=== PATIENT | female | born 1950 | race Caucasian/White ===

== ENCOUNTER 2016-10-16 09:02 | Emergency (ER) | payer MEDICARE ==
[2016-10-16] MEDS ORDERED: NS 0.9% 1000 ML* 1,000 ML IV ONE (09:19)
[2016-10-16] MEDS ORDERED: Aspirin Low Dose CHEW TAB* 81 MG PO ONE (09:19)
[2016-10-16 09:59] LABS: Albumin 3.7 g/dL (3.2-5.2); BUN/Creatinine Ratio 19.8 (8-20); Calcium 9.3 mg/dL (8.6-10.3); EGFR African American 74.8 (>60); EGFR Non-African American 58.1 (>60); Globulin 3.6 g/dL (2-4); Magnesium 2.1 mg/dL (1.9-2.7); Potassium 2.9 mmol/L (3.5-5.0); Total Bilirubin 0.4 mg/dL (0.2-1.0); Total Protein 7.3 g/dL (6.4-8.9)
[2016-10-16 10:00] LABS: Hematocrit 45 % (35-47); Hemoglobin 14.4 g/dl (12.0-16.0); Mean Corpuscular HGB Conc 32 g/dl (31-36); Mean Corpuscular Hemoglobin 29 pg (27-31); Mean Corpuscular Volume 91 fL (80-97); Mean Platelet Volume 9 um3 (7.4-10.4); Red Cell Distribution Width 15 % (10.5-15); Troponin I 0.02 ng/mL (<0.04); White Blood Count 15.1 10^3/ul (3.5-10.8)
[2016-10-16 10:20] LABS: T4 6.11 mcg/mL (6.09-12.23)
[2016-10-16 10:21] LABS: TSH (Thyroid Stimulating Horm) 1.99 mcIU/mL (0.34-5.60)
--- NOTE | 2016-10-16 10:29 | RAD ---
INDICATION: Chest pain COMPARISON: September 18, 2007 TECHNIQUE: An AP portable view obtained at 0945 hours is submitted. FINDINGS: Bones/Soft Tissues: There are no acute bony findings. Cardiomediastinal: The cardiomediastinal silhouette is normal. Lungs: There are no infiltrates. Pleura: There are no pleural effusions. Other: None IMPRESSION: NO ACTIVE DISEASE.
[2016-10-16] MEDS ORDERED: Iodixanol* (CONTRAST) 320 MG/ML 100 ML SDV IV ONE (14:33)
[2016-10-16] MEDS ORDERED: Potassium Chlor TAB* 20 MEQ TAB.ER PO ONE (14:34)
[2016-10-16] MEDS ORDERED: KCL 10 MEQ/50 ML IVPREMIX* 10 MEQ/50 ML BAG IV ONE (14:34)
--- NOTE | 2016-10-16 15:48 | RAD ---
INDICATION: Chest pain and elevated d-dimer COMPARISON: None TECHNIQUE: Axial source images were acquired following the administration of 58 mL Visipaque [address] angiographic technique. Coronal and sagittal reconstructed images were constructed and reviewed. FINDINGS: There there are no filling defects in the pulmonary arteries to indicate acute pulmonary embolic disease. In the lateral aspect of the left lower lobe (image 32 of 64) there is a faintly defined 4 mm pulmonary nodule that appears to correspond to a similar nodule seen on the September 17, 2007 CT examination. At the medial aspect of the right lower lobe (image 134 of 254) there is a 1.3 x 1.4 cm soft tissue nodule that may correspond to a focus of pleural-based density on the 2008 CT examination. The heart is normal in size. There is no evidence of pericardial effusion. There is no evidence of aortic aneurysm or dissection. There is no upper mediastinal or axillary lymphadenopathy. At the lower mediastinum (image 149) there is a top normal periaortic right of midline lymph node measuring 8 mm in short access, increased slightly from 6 mm on the previous CT examination. The bilateral breast prostheses are unchanged from the 2008 CT examination. The visualized osseous structures appear normal. Limited views of the upper abdomen show no abnormalities. IMPRESSION: 1. No CT of evidence of pulmonary embolism. 2. At the medial aspect of the right lower lobe there is a pulmonary nodule adjacent to the pleura with a maximum axial dimension of 1.4 cm. This may or may not correspond to a pleural-based density seen on the 2008 CT examination and therefore potentially could represent chronic granulomatous formation. Alternatively, infectious, inflammatory or neoplastic etiologies are considered. 3. At the lower mediastinum just above the diaphragmatic hiral there are top normal periaortic lymph nodes measuring up to 8 mm in short axis diameter, slightly larger when compared to the 2008 CT examination of indeterminate clinical relevance.
[2016-10-16 17:50] VITALS: BP 120/80
--- NOTE | 2016-10-16 22:36 | ED ---
Jason Solis Alfonso, scribed for Hilary Vallecillo MD on 10/16/16 at 0958 . HPI Chest Pain - HPI Summary HPI Summary: This patient is a 66 year old F presenting to [facility] accompanied by son with a chief complaint of diffuse chest pressure since 0800 this morning. The chest pressure radiates to her neck. The CC is described as burning. Pt rates the pain 4/10 in severity currently and 7/10 in severity SITE LEAD. Symptoms aggravated and alleviated by nothing. Pt reports SOB and lightheadedness. Pt denies nausea. Pt took ASA 81 mg and Xanax 0.25 mg SITE LEAD because she thought her sx were related to anxiety. FHx of blood clotting in mother. PMHx of HTN and HLD. - History of Current Complaint Chief Complaint: EDChestPainROMI Time Seen by Provider: 10/16/16 09:19 Hx Obtained From: Patient Onset/Duration: Started Minutes Ago - 0800 this morning, Still Present Timing: Constant Initial Severity: Severe Current Severity: Moderate Pain Intensity: 4 - Was 7/10 SITE LEAD Pain Scale Used: 0-10 Numeric Chest Pain Location: Diffuse Chest Pain Radiates: Yes Chest Pain Radiates To:: Neck Character: Burning Aggravating Factor(s): Nothing Alleviating Factor(s): Nothing Associated Signs and Symptoms: Positive: Chest Pain, Shortness of Breath, Lightheadedness. Negative: Nausea - Allergy/Home Medications Allergies/Adverse Reactions: Allergies Allergy/AdvReac Type Severity Reaction Status Date / Time Ibuprofen Allergy Unknown Verified 08/08/16 12:20 Reaction Details narcotics Allergy Unknown Uncoded 08/08/16 12:20 Reaction Details PMH/Surg Hx/FS Hx/Imm Hx Previously Healthy: Yes Opthamlomology History: Denies: Hx Legally Blind EENT History: Denies: Hx Deafness - Cancer History Hx Chemotherapy: No Hx Radiation Therapy: No Infectious Disease History: Yes Infectious Disease History: Denies: Traveled Outside the [place] in Last 30 Days - Family History Known Family History: Positive: Blood Disorder - Blood clotting in mother, Other - Cancer - Social History Alcohol Use: None Substance Use Type: Reports: None Smoking Status (MU): Former Smoker Review of Systems Constitutional: Negative Positive: Chest Pain - Burning diffuse and radiates to neck Positive: Shortness Of Breath Negative: Abdominal Pain, Nausea Musculoskeletal: Negative Skin: Negative Neurological: Other - Positive lightheadedness Psychological: Normal All Other Systems Reviewed And Are Negative: Yes Physical Exam Triage Information Reviewed: Yes Vital Signs On Initial Exam: Initial Vitals Temp Pulse Resp BP Pulse Ox 97.6 F 154 20 128/101 100 10/16/16 09:03 10/16/16 09:03 10/16/16 09:03 10/16/16 09:03 10/16/16 09:03 Vital Signs Reviewed: Yes Appearance: Positive: No Pain Distress, Well-Nourished, Ill-Appearing Skin: Positive: Warm, Skin Color Reflects Adequate Perfusion Head/Face: Positive: Normal Head/Face Inspection Eyes: Positive: Conjunctiva Clear ENT: Positive: Normal ENT inspection. Negative: Nasal congestion, Muffled/ hoarse voice Neck: Positive: Supple, Nontender, No Lymphadenopathy Respiratory/Lung Sounds: Positive: Clear to Auscultation, Breath Sounds Present Cardiovascular: Positive: Pulses are Symmetrical in both Upper and Lower Extremities, Tachycardia. Negative: Murmur, Leg Edema Left, Leg Edema Right Abdomen Description: Positive: Nontender, No Organomegaly, Soft. Negative: Distended, Guarding, Hepatomegaly, McBurney's Point Tenderness, Peritoneal Signs , Pulsatile Mass, Splenomegaly Bowel Sounds: Positive: Present Musculoskeletal: Positive: Strength/ROM Intact. Negative: Devon Sign Left, Devon Sign Right, Edema Left, Edema Right Neurological: Positive: Sensory/Motor Intact, Alert, Oriented to Person Place, Time, CN Intact II-III, Speech Normal. Negative: Facial Droop, Focal Deficit @ , Slurred Speech Psychiatric: Positive: Normal - Maurice Coma Scale Coma Scale Total: 15 Diagnostics - Vital Signs Vital Signs Temp Pulse Resp BP Pulse Ox 10/16/16 09:11 96.0 F 154 25 132/101 97 10/16/16 09:03 97.6 F 154 20 128/101 100 - Laboratory Lab Results: Lab Results 10/16/16 Range/Units 09:33 Lactic Acid 1.1 (0.5-2.0) mmol/L Result Diagrams: 10/16/16 09:33 10/16/16 09:33 Lab Statement: Any lab studies that have been ordered have been reviewed, and results considered in the medical decision making process. - Radiology CXR Radiology Interpretation Completed By: Radiologist - No active disease. - CT CTA Chest CT Interpretation Completed By: Radiologist - 1. No CT of evidence of pulmonary embolism. 2. At the medial aspect of the right lower lobe there is a pulmonary nodule adjacent to the pleura with a maximum axial dimension of 1.4 cm. This may or may not correspond to a pleural-based density seen on the 2008 CT examination and therefore potentially could represent chronic granulomatous formation. Alternatively, infectious, inflammatory or neoplastic etiologies are considered. 3. At the lower mediastinum just above the diaphragmatic hiral there are top normal periaortic lymph nodes measuring up to 8 mm in short axis diameter, slightly larger when compared to the 2008 CT examination of indeterminate clinical relevance. - EKG 0913 Cardiac Rate: Tachycardia - BPM 157 EKG Rhythm: SVT EKG Interpretation: Normal IV and AV conduction times. Normal QTc. Left axis - 64. EKG Comparison: Other - New SVT compared to 05/18/2004 0936 Cardiac Rate: Tachycardia - BPM 109 EKG Rhythm: Sinus Tachycardia EKG Interpretation: Normal IV and AV conduction times. Normal QTc. Left axis - 44. EKG Comparison: Other - Sinus Tach compared to 0913 today. Re-Evaluation - Re-Evaluation First Eval Re-Evaluation Time: 14:33 Change: Improved Comment: Pt symptoms are improved. She does not have CP or pedal edema. Second Eval Re-Evaluation Time: 17:39 Change: Improved - Pt is doing well and reports no pain. Labs and imaging reviewed with patient. She understands and agrees with the discharge plan. Chest Pain Course/Dx - Course Assessment/Plan: 66 year old F presents to the ED with a CC of burning chest pressure that radiates to her neck since 0800 this morning. Pt reports SOB and lightheadedness. Pt denies nausea. Initial EKG showed SVT 157, second EKG minutes later showed ST 109, spontaneous conversion. Pt also with hypokalemia, corrected with IV 10mEq and 40mEQ po. CXR reveals no active disease. CTA chest reveals 1. No CT of evidence of pulmonary embolism. 2. At the medial aspect of the right lower lobe there is a pulmonary nodule adjacent to the pleura with a maximum axial dimension of 1.4 cm. This may or may not correspond to a pleural- based density seen on the 2008 CT examination and therefore potentially could represent chronic granulomatous formation. Alternatively, infectious, inflammatory or neoplastic etiologies are considered. 3. At the lower mediastinum just above the diaphragmatic hiral there are top normal periaortic lymph nodes measuring up to 8 mm in short axis diameter, slightly larger when compared to the 2008 CT examination of indeterminate clinical relevance. An EKG reveals SVT. A second EKG 23 minutes later reveals sinus tachycardia. Blood work shows WBC 15.1, D-Dimer 961, alkaline phosphatase 138, troponin 0.02, and BNP 121. In the ED course patient given potassium chloride 10 mEq IV and 40 mEq PO to address potassium of 2.9. Patient will be discharged with follow up from Dr. Guzman (PCP). Pt is agreeable with this plan. Allergies noted. Pt medications reviewed this visit. - Chest Pain Differential Diagnosis/HQI/PQRI: Acute CA, ACS, Lower Respiratory Infection, Pulmonary Embolism - Diagnoses Provider Diagnoses: Hypokalemia, Chest pain, SVT (supraventricular tachycardia) Discharge - Discharge Plan Condition: Stable Disposition: HOME Prescriptions: Potassium Chlor TAB* [Potassium Chlor TAB 20 MEQ*] 40 meq PO DAILY #10 tab.er Patient Education Materials: Supraventricular Tachycardia (ED), Chest Pain (ED) , Hypokalemia (ED) Referrals: Madhavi Guzman MD [Primary Care Provider] - 2 Days Additional Instructions: Dr. Vallecillo has given you a copy of your CT. You have not had damage to your heart, or a blood clot to your lung (that is, no pulmonary embolus) by the studies done today. Return to the ER if you have any new or worsening symptoms. The documentation as recorded by the Jason mims Alfonso accurately reflects the service I personally performed and the decisions made by , Hilary Vallecillo MD.
== END 2016-10-16 17:48 | disposition home or self-care (01) ==
LOC: ED 09:02
DX: E87.6 Hypokalemia (principal); I47.1 Supraventricular tachycardia; R07.9 Chest pain, unspecified; R06.02 Shortness of breath; R42 Dizziness and giddiness; Z87.891 Personal history of nicotine dependence
CPT/HCPCS: 36415; 71010; 71275; 80053; 82550; 82553; 83605; 83735; 83880; 84436; 84443; 84484; 85025; 85379; 85610; 85730; 86803; 93005; 99282; A9270-GY; J3480; Q9967

== ENCOUNTER 2017-05-03 22:56 | Emergency (ER) | payer MEDICARE ==
[2017-05-03] MEDS ORDERED: traMADol TAB* 50 MG PO ONE (23:37)
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
[2017-05-04] MEDS ORDERED: Cyclobenzaprine TAB* 10 MG PO ONE (00:35)
[2017-05-04 01:29] VITALS: BP 116/69
--- NOTE | 2017-05-04 07:46 | RAD ---
HISTORY: Left hip pain, fall COMPARISONS: None VIEWS: 3, Frontal view of the pelvis with frontal and frog-leg views of the left hip FINDINGS: BONE DENSITY: Normal. BONES: There is an angulated fracture of the subcapital left femoral neck. 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 ALIGNMENT: There is no dislocation. SOFT TISSUES: Unremarkable. OTHER FINDINGS: None. IMPRESSION: ANGULATED LEFT FEMORAL NECK FRACTURE.
== END 2017-05-04 01:39 | disposition home or self-care (01) ==
LOC: ED 22:56
DX: S70.02XA Contusion of left hip, initial encounter (principal); M25.552 Pain in left hip; Z87.891 Personal history of nicotine dependence; W19.XXXA Unspecified fall, initial encounter; Y92.9 Unspecified place or not applicable
CPT/HCPCS: 99283; A9270-GY

== ENCOUNTER 2017-05-04 19:12 | Inpatient (IN) | payer MEDICARE ==
[2017-05-04] MEDS ORDERED: traMADol TAB* 50 MG PO ONE (20:02)
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
[2017-05-04 20:33] LABS: ABS Basophils 0.1 10^3/ul (0-0.2); ABS Eosinophils 0.1 10^3/ul (0-0.6); ABS Lymphocytes 1.4 10^3/ul (1.0-4.8); ABS Monocytes 1.4 10^3/ul (0-0.8); ABS Neutrophils 11.4 10^3/ul (1.5-7.7); ABS Nucleated RBC 0 10^3/ul; Eosinophil % 0.4 % (0-6); Hematocrit 39 % (35-47); Hemoglobin 12.7 g/dl (12.0-16.0); Lymphocyte % 9.4 % (25-47); Mean Corpuscular HGB Conc 33 g/dl (31-36); Mean Corpuscular Hemoglobin 30 pg (27-31); Mean Corpuscular Volume 90 fL (80-97); Mean Platelet Volume 8 um3 (7.4-10.4); Nucleated Red Blood Cells % 0; Platelet Count 348 10^3/ul (150-450); Red Blood Count 4.29 10^6/ul (4.0-5.4); Red Cell Distribution Width 15 % (10.5-15); White Blood Count 14.4 10^3/ul (3.5-10.8)
[2017-05-04 20:51] LABS: EGFR Non-African American 59.4 (>60)
[2017-05-04] MEDS ORDERED: Ondansetron INJ* 2 MG/ML VIAL IV PRN (20:55)
[2017-05-04] MEDS ORDERED: Cyclobenzaprine TAB* 10 MG PO PRN (21:00)
[2017-05-04] MEDS ORDERED: NS 0.9% 1000 ML* 1,000 ML IV SCH (21:00)
[2017-05-04] MEDS ORDERED: ALPRAZolam TAB* 0.25 MG PO PRN (21:05)
--- NOTE | 2017-05-04 21:34 | RAD ---
Indication: Left hip fracture. CT of the pelvis and left hip were obtained. Coronal and sagittal reconstructed images were obtained. There is a fracture of the neck of the femur with lateral apical angulation. Overriding of the fracture fragments is noted. There is lucency at the neck of the femur. Diffuse osteopenia is noted. The pelvic ring is otherwise unremarkable. No fracture of the pelvis is noted. The right hip is grossly unremarkable. No pelvic masses are noted. Diverticulosis without definite evidence of diverticulitis is noted. IMPRESSION: Fracture of the neck of the femur with overriding of the fracture fragments. The remainder of the pelvic ring is intact. Diffuse osteopenia is present.
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
--- NOTE | 2017-05-04 21:50 | RAD ---
Indication: Hypertension, fall. Single frontal view of the chest performed at 2135 hours was reviewed. Comparison is made with previous exam dated October 16, 2016. No mediastinal shift is noted. Heart is of normal size and configuration. Lung farah appear clear. IMPRESSION: NO ACTIVE CARDIOPULMONARY DISEASE IS NOTED.
[2017-05-04] MEDS: Acetaminophen TAB* 325 MG PO PRN (23:20)
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
[2017-05-04] MEDS: Heparin VIAL(*) 5000 UNITS/ML VIAL (FIVE THOUSAND) SUBCUT SCH (23:30)
[2017-05-05] MEDS: traMADol TAB* 50 MG PO PRN (04:12)
[2017-05-05 04:25] LABS: Urine Appearance Cloudy; Urine Blood 2+ (Negative); Urine Color Yellow; Urine Ketones Negative (Negative); Urine Protein Negative (Negative); Urine Specific Gravity 1.016 (1.010-1.030); Urine Urobilinogen Negative (Negative)
[2017-05-05 05:26] LABS: ABS Basophils 0.1 10^3/ul (0-0.2); ABS Eosinophils 0.1 10^3/ul (0-0.6); ABS Lymphocytes 1.9 10^3/ul (1.0-4.8); ABS Monocytes 0.9 10^3/ul (0-0.8); ABS Neutrophils 7.6 10^3/ul (1.5-7.7); ABS Nucleated RBC 0 10^3/ul; Eosinophil % 1.1 % (0-6); Hematocrit 36 % (35-47); Lymphocyte % 17.4 % (25-47); Mean Corpuscular HGB Conc 34 g/dl (31-36); Mean Corpuscular Hemoglobin 30 pg (27-31); Mean Corpuscular Volume 90 fL (80-97); Mean Platelet Volume 8 um3 (7.4-10.4); Nucleated Red Blood Cells % 0; Platelet Count 312 10^3/ul (150-450); Red Blood Count 3.98 10^6/ul (4.0-5.4); Red Cell Distribution Width 15 % (10.5-15); White Blood Count 10.7 10^3/ul (3.5-10.8)
[2017-05-05 05:42] LABS: INR 1.01 (0.77-1.02)
[2017-05-05 05:52] LABS: EGFR Non-African American 71.5 (>60)
[2017-05-05] MEDS ORDERED: Gabapentin CAP(*) 300 MG PO ONE (06:00)
[2017-05-05] MEDS ORDERED: Scopolamine 1.5 mg* PATCH TRANSDERM ONE (06:00)
[2017-05-05] MEDS: Heparin VIAL(*) 5000 UNITS/ML VIAL (FIVE THOUSAND) SUBCUT SCH ×2 (06:31→15:50)
[2017-05-05] MEDS: Omeprazole CAP* 20 MG PO SCH (08:41)
[2017-05-05] MEDS ORDERED: Influenza VAC *QUAD* 2017-18* 0.5 ML SYRINGE IM ONE (09:00)
[2017-05-05] MEDS: Acetaminophen TAB* 325 MG PO PRN (09:53)
[2017-05-05] MEDS ORDERED: ceFAZolin 2 GM PREMIX (*) 0 GM/0 ML BAG IVPB ONE (11:28)
[2017-05-05] MEDS ORDERED: fentaNYL* 50 MCG/ML 2 ML VIAL (100 MCG VIAL) ONE (11:38)
[2017-05-05] MEDS ORDERED: Midazolam* 1 MG/ML 10 ML VIAL (10 MG) ONE (11:39)
[2017-05-05] MEDS ORDERED: Propofol* 10 MG/ML 20 ML BTL IV PUSH ONE (12:35)
[2017-05-05] MEDS ORDERED: DiMENhydriNATE IV* 50 MG/ML VIAL ONE (12:35)
[2017-05-05] MEDS ORDERED: Dexamethasone IV* 4 MG/ML 1 ML (4 MG) ONE (12:35)
[2017-05-05] MEDS ORDERED: Phenylephrine INJ* 10 MG/ML 1 ML VIAL (10 MG) ONE (12:35)
[2017-05-05] MEDS ORDERED: Ketorolac INJ* 30 MG/ML 1 ML VIAL ONE (12:35)
[2017-05-05] MEDS ORDERED: EPHEDrine (Pressors)* 50 MG/ML VIAL ONE (12:35)
[2017-05-05] MEDS ORDERED: Succinylcholine* 20 MG/ML 10 ML VIAL ONE (12:35)
[2017-05-05] MEDS ORDERED: Ondansetron INJ* 2 MG/ML VIAL ONE (12:35)
[2017-05-05] MEDS ORDERED: Glycopyrrolate IV* 0.2 MG/ML 1 ML VIAL ONE (12:35)
[2017-05-05] MEDS ORDERED: DiMENhydriNATE IV* 50 MG/ML VIAL IV PUSH PRN (12:39)
[2017-05-05] MEDS ORDERED: Acetaminophen IV 1GM/100ML * 1,000 MG/100 ML VIAL IVPB ONE (12:39)
[2017-05-05] MEDS ORDERED: Naloxone* 0.4 MG/ML 1 ML VIAL IV PRN (12:39)
[2017-05-05] MEDS ORDERED: HYDROmorphone INJ* 1 MG/ML CARPUJECT SYRINGE IV PRN (12:39)
[2017-05-05] MEDS ORDERED: Gabapentin CAP(*) 100 MG PO ONE (12:41)
[2017-05-05] MEDS ORDERED: HYDROmorphone INJ* 1 MG/ML CARPUJECT SYRINGE ONE (12:48)
[2017-05-05] MEDS ORDERED: Bupivacaine 0.5% SDV PF* 10-30ML VIAL ONE (13:26)
[2017-05-05] MEDS ORDERED: diPHENhydraMINE PO* 25 MG PO PRN (13:41)
[2017-05-05] MEDS ORDERED: Magnesium Hydroxide LIQ* 30 ML UDC PO PRN (13:41)
[2017-05-05] MEDS ORDERED: Acetaminophen IV 1GM/100ML * 100 ML ONE (13:43)
[2017-05-05] MEDS: cefTRIAXone(*) 1 GM in D5W 50 ML BAG* 50 ML IVPB SCH ×2 (14:07→15:42)
--- NOTE | 2017-05-05 14:31 | RAD ---
HISTORY: Status post left hip hemiarthroplasty COMPARISONS: May 04, 2017 VIEWS: 1, Single frontal view of the pelvis FINDINGS: BONE DENSITY: Normal. BONES: There has been an interval left hip hemiarthroplasty. On the single frontal projection, there is no appreciable hardware failure or osteolysis. JOINTS: The patient is status post left hip arthroplasty ALIGNMENT: There is no dislocation. SOFT TISSUES: Unremarkable. OTHER FINDINGS: None. IMPRESSION: STATUS POST LEFT HIP ARTHROPLASTY.
[2017-05-05] MEDS ORDERED: Gabapentin CAP(*) 100 MG ONE (14:43)
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
[2017-05-05] MEDS: Docusate CAP* 100 MG PO SCH (19:54)
[2017-05-05] MEDS: Magnesium Hydroxide LIQ* 30 ML UDC PO SCH (19:54)
[2017-05-05] MEDS: ceFAZolin 1 GM in Dextrose (*) 1 GM/50 ML BAG IVPB SCH (19:54)
[2017-05-06] MEDS: traMADol TAB* 50 MG PO PRN ×3 (03:13→19:28)
[2017-05-06] MEDS: ceFAZolin 1 GM in Dextrose (*) 1 GM/50 ML BAG IVPB SCH ×2 (04:24→12:10)
--- NOTE | 2017-05-06 05:08 | OP ---
DATE OF OPERATION: 05/05/17 - ROOM #348 DATE OF : 50 ATTENDING SURGEON: Florin Valero MD CAN REFORMING MACHINE OPERATOR: RUBY Sheldon ANESTHESIOLOGIST: Lara Cavazos MD ANESTHESIA: The patient had general anesthetic. PRE-OP DIAGNOSIS: Left femoral neck fracture. POST-OP DIAGNOSIS: Left femoral neck fracture. OPERATIVE PROCEDURE: Left hemiarthroplasty, [place] #2 stem hydroxyapatite coded with a +5 28 mm head and a 48 mm bipolar cup. ESTIMATED BLOOD LOSS: Blood loss was about 200 cc. DESCRIPTION OF PROCEDURE: The patient was taken to the operating room in lateral positioning, standard posterior approach made, centered over the greater trochanter. We divided the gluteus re muscle bluntly with good hemostasis as well as the fascia pineda. We gently inverted the hip, internally rotated the hip rather to rule out visualization of the piriformis tendon, which was reflected posteriorly on a suture ligature. We used the Reis to raise the medius and a Cobra placed and then we were able to divide the posterior capsule of the hip in a T- fashion using a suture ligature for each corner. As we further internally rotated the hip, we had full visualization of the femoral head, which was removed with the corkscrew, pulvinar was removed as well with a rongeur, there was still essentially minimal active bleeding. We sized the acetabulum to a 48 mm diameter. We then re-cut the femoral neck a fingerbreadth above the lesser trochanter. We placed a sound down into the canal and then rasped up to a number 2 femoral stem. A trial was then performed with a 0 and a +5 head. I felt that the +5 gave better stability. So we then drove in the permanent #2 hydroxyapatite coded stem and one more trial made with a +5 head, which was satisfactory, we then placed a +5 permanent head with a 48 mm bipolar cup. After the reduction, the patient was quite stable up to about 50 or 60 degrees of internal rotation. The capsule was repaired with a running #1 Vicryl suture, piriformis was reattached to the posterior corner of the greater trochanter. We irrigated all these steps thoroughly with a pulsatile lavage, we then closed the fascia pineda and the fascia of the gluteus re with interrupted #1 Vicryl sutures. Subcutaneous a couple of layers of 0 Vicryl and the ashly for the skin, compression dressing was applied with a Tegaderm. The patient tolerated it well. [id number]/[facility] #: [id number] [facility]
[2017-05-06 06:37] LABS: ABS Basophils 0.1 10^3/ul (0-0.2); ABS Eosinophils 0 10^3/ul (0-0.6); ABS Lymphocytes 1.7 10^3/ul (1.0-4.8); ABS Monocytes 1.3 10^3/ul (0-0.8); ABS Neutrophils 9.3 10^3/ul (1.5-7.7); ABS Nucleated RBC 0 10^3/ul; Eosinophil % 0.2 % (0-6); Hematocrit 32 % (35-47); Hemoglobin 10.5 g/dl (12.0-16.0); Lymphocyte % 13.4 % (25-47); Mean Corpuscular HGB Conc 33 g/dl (31-36); Mean Corpuscular Hemoglobin 30 pg (27-31); Mean Corpuscular Volume 91 fL (80-97); Mean Platelet Volume 8 um3 (7.4-10.4); Nucleated Red Blood Cells % 0; Platelet Count 295 10^3/ul (150-450); Red Blood Count 3.48 10^6/ul (4.0-5.4); Red Cell Distribution Width 15 % (10.5-15); White Blood Count 12.4 10^3/ul (3.5-10.8)
[2017-05-06 06:53] LABS: EGFR Non-African American 66.7 (>60)
[2017-05-06] MEDS: Acetaminophen TAB* 325 MG PO PRN ×4 (07:31→23:42)
[2017-05-06] MEDS: Magnesium Hydroxide LIQ* 30 ML UDC PO SCH ×2 (08:46→20:47)
[2017-05-06] MEDS: Omeprazole CAP* 20 MG PO SCH (08:46)
[2017-05-06] MEDS: Docusate CAP* 100 MG PO SCH ×2 (08:46→20:47)
[2017-05-06] MEDS: cefTRIAXone(*) 1 GM in D5W 50 ML BAG* 50 ML IVPB SCH (09:52)
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
[2017-05-06] MEDS: Enoxaparin(*) 40 MG/0.4 ML SYR SUBCUT SCH (13:58)
--- NOTE | 2017-05-06 16:11 | PN ---
Progress Note - Progress Note Date of Service: 05/06/17 SOAP: Subjective: Pt lying comfortably in bed. No c/o pain. Vital Signs: Temp Pulse Resp BP Pulse Ox 98.9 F 81 17 105/51 93 05/06/17 11:37 05/06/17 11:37 05/06/17 13:55 05/06/17 11:37 05/06/17 12:24 Laboratory Last Values WBC 12.4 10^3/ul (3.5-10.8) H 05/06/17 06:21 RBC 3.48 10^6/ul (4.0-5.4) L 05/06/17 06:21 Hgb 10.5 g/dl (12.0-16.0) L 05/06/17 06:21 Hct 32 % (35-47) L 05/06/17 06:21 MCV 91 fL (80-97) 05/06/17 06:21 MCH 30 pg (27-31) 05/06/17 06:21 MCHC 33 g/dl (31-36) 05/06/17 06:21 RDW 15 % (10.5-15) 05/06/17 06:21 Plt Count 295 10^3/ul (150-450) 05/06/17 06:21 MPV 8 um3 (7.4-10.4) 05/06/17 06:21 Neut % (Auto) 75.1 % (38-83) 05/06/17 06:21 Lymph % (Auto) 13.4 % (25-47) L 05/06/17 06:21 [place] % (Auto) 10.6 % (1-9) H 05/06/17 06:21 Eos % (Auto) 0.2 % (0-6) 05/06/17 06:21 Baso % (Auto) 0.7 % (0-2) 05/06/17 06:21 Absolute Neuts (auto) 9.3 10^3/ul (1.5-7.7) H 05/06/17 06:21 Absolute Lymphs (auto) 1.7 10^3/ul (1.0-4.8) 05/06/17 06:21 Absolute Monos (auto) 1.3 10^3/ul (0-0.8) H 05/06/17 06:21 Absolute Eos (auto) 0 10^3/ul (0-0.6) 05/06/17 06:21 Absolute Basos (auto) 0.1 10^3/ul (0-0.2) 05/06/17 06:21 Absolute Nucleated RBC 0 10^3/ul 05/06/17 06:21 Nucleated RBC % 0 05/06/17 06:21 ESR 40 mm/Hr (0-40) 05/04/17 20:20 INR (Anticoag Therapy) 1.01 (0.77-1.02) 05/05/17 05:19 Sodium 137 mmol/L (133-145) 05/06/17 06:21 Potassium 3.7 mmol/L (3.5-5.0) 05/06/17 06:21 Chloride 101 mmol/L (101-111) 05/06/17 06:21 Carbon Dioxide 32 mmol/L (22-32) 05/06/17 06:21 Anion Gap 4 mmol/L (2-11) 05/06/17 06:21 BUN 12 mg/dL (6-24) 05/06/17 06:21 Creatinine 0.85 mg/dL (0.51-0.95) 05/06/17 06:21 Est GFR ( Amer) 85.8 (>60) 05/06/17 06:21 Est GFR (Non-Af Amer) 66.7 (>60) 05/06/17 06:21 BUN/Creatinine Ratio 14.1 (8-20) 05/06/17 06:21 Glucose 99 mg/dL (70-100) 05/06/17 06:21 Lactic Acid 0.5 mmol/L (0.5-2.0) 05/04/17 20:20 Calcium 9.0 mg/dL (8.6-10.3) 05/06/17 06:21 Magnesium 2.2 mg/dL (1.9-2.7) 05/06/17 06:21 Total Bilirubin 0.60 mg/dL (0.2-1.0) 05/04/17 20:20 AST 14 U/L (13-39) 05/04/17 20:20 ALT 18 U/L (7-52) 05/04/17 20:20 Alkaline Phosphatase 133 U/L (34-104) H 05/04/17 20:20 C-Reactive Protein 61.61 mg/L (< 5.00) H 05/04/17 20:20 Total Protein 6.7 g/dL (6.4-8.9) 05/04/17 20:20 Albumin 3.6 g/dL (3.2-5.2) 05/04/17 20:20 Globulin 3.1 g/dL (2-4) 05/04/17 20:20 Albumin/Globulin Ratio 1.2 (1-3) 05/04/17 20:20 Urine Color Yellow 05/05/17 04:05 Urine Appearance Cloudy 05/05/17 04:05 Urine pH 5.0 (5-9) 05/05/17 04:05 Ur Specific [place] 1.016 (1.010-1.030) 05/05/17 04:05 Urine Protein Negative (Negative) 05/05/17 04:05 Urine Ketones Negative (Negative) 05/05/17 04:05 Urine Blood 2+ (Negative) H 05/05/17 04:05 Urine Nitrate Negative (Negative) 05/05/17 04:05 Urine Bilirubin Negative (Negative) 05/05/17 04:05 Urine Urobilinogen Negative (Negative) 05/05/17 04:05 Ur Leukocyte Esterase 3+ (Negative) H 05/05/17 04:05 Urine WBC (Auto) 3+(>20/hpf) (Absent) H 05/05/17 04:05 Urine RBC (Auto) 3+(>10/hpf) (Absent) H 05/05/17 04:05 Ur Squamous Epith Cells Present (Absent) H 05/05/17 04:05 Urine Bacteria 1+ (Absent) H 05/05/17 04:05 Urine Glucose Negative (Negative) 05/05/17 04:05 Blood Type O Positive 05/04/17 20:20 Antibody Screen Negative 05/04/17 20:20 objective: Dressing C/D/I. Calves soft, nontender. DP pulses 2+. Sensation intact to light touch distally. Assessment: s/p left hip hemiarthroplasty POD#1 Plan: OOB PT/OT Pain control DVT prophylaxis - Lovenox
--- NOTE | 2017-05-06 20:43 | CONS ---
CONSULTATION REPORT: DATE OF CONSULT: 05/06/17 HISTORY: Justine is seen in her room 1 day postop. She has been quite active , being able to get up in the chair today. She is having 2/10 pain overall. There is slight staining of the dressing, but it will be kept intact for another 48 hours. Her postoperative pelvis x-ray shows the hip well located, good overall length and good femoral fit for the stem. She will continue her rehab, getting occupational therapy tomorrow and then possible discharge home in a couple of days. [id number]/[facility] #: [id number] NEELIMA
[2017-05-07] MEDS: traMADol TAB* 50 MG PO PRN ×2 (05:15→14:27)
[2017-05-07] MEDS: Magnesium Hydroxide LIQ* 30 ML UDC PO SCH ×2 (07:25→19:50)
[2017-05-07 07:30] LABS: ABS Basophils 0.1 10^3/ul (0-0.2); ABS Eosinophils 0.2 10^3/ul (0-0.6); ABS Lymphocytes 1.4 10^3/ul (1.0-4.8); ABS Monocytes 1.1 10^3/ul (0-0.8); ABS Neutrophils 8.1 10^3/ul (1.5-7.7); ABS Nucleated RBC 0 10^3/ul; Eosinophil % 1.5 % (0-6); Hematocrit 32 % (35-47); Hemoglobin 10.4 g/dl (12.0-16.0); Lymphocyte % 12.9 % (25-47); Mean Corpuscular HGB Conc 33 g/dl (31-36); Mean Corpuscular Hemoglobin 30 pg (27-31); Mean Corpuscular Volume 91 fL (80-97); Mean Platelet Volume 9 um3 (7.4-10.4); Nucleated Red Blood Cells % 0; Platelet Count 295 10^3/ul (150-450); Red Blood Count 3.46 10^6/ul (4.0-5.4); Red Cell Distribution Width 15 % (10.5-15); White Blood Count 10.9 10^3/ul (3.5-10.8)
[2017-05-07] MEDS: Docusate CAP* 100 MG PO SCH ×2 (08:04→19:50)
[2017-05-07] MEDS: Omeprazole CAP* 20 MG PO SCH (08:04)
[2017-05-07] MEDS ORDERED: cefTRIAXone(*) 1 GM in NS 0.9% 50 ML* 50 ML IVPB SCH (10:00)
--- NOTE | 2017-05-07 11:19 | PN ---
Progress Note - Progress Note Date of Service: 05/07/17 SOAP: Subjective: 67 y/o female s/p L hemiarthroplasty for femur fx 05/[address] Felder. Patient feeling well, pain present, however controlled. VSS afebrile overnight. Patient would like to be D/Cd home when able. Objective: General- Well appearing, NAD AO, sitting in chair comfortably MSK- Dressing taken down, incision c/i, proximal area re-enforced with steri strips. minimal blood drainage from mid-wound. mild induration mid-thigh. + DF/PF, sensation intact, neg homans b/l. PT 2+ b/l. Vital Signs Temp 99.0 F 05/07/17 07:20 Pulse 85 05/07/17 07:20 Resp 18 05/07/17 08:00 BP 123/63 05/07/17 07:20 Pulse Ox 97 05/07/17 08:17 Intake & Output 05/06/17 05/07/17 05/07/17 18:59 06:59 18:59 Intake Total 2470 660 Output Total 1600 1400 800 Balance 870 -740 -800 Intake: IV Fluids 1020 LR 1020 IVPB 160 ABX - CEFAZOLIN 160 Oral 1290 660 Output: Urine 1600 1400 800 Other: Estimated Void Small # Voids 1 Assessment: Stable 67 y/o female s/p L hemiarthroplasty for femur fx 05/[address] Felder. Plan: - DVT prophyaxis- lovenox x 2 weeks post-op - Continue PT/ OT, reviewed hip precautions - Continue current pain contol - F/u with Dr. Felder within 10-14 days post-op Acetaminophen (Tylenol Tab*) 650 mg PO Q4H PRN PRN Reason: FEVER/PAIN Last Admin: 05/06/17 23:42 Dose: 650 mg Alprazolam (Xanax Tab*) 0.25 mg PO DAILY PRN PRN Reason: AGITATION/ANXIETY/INSOMNIA Cyclobenzaprine HCl (Flexeril Tab*) 10 mg PO BID PRN PRN Reason: PAIN Diphenhydramine HCl (Benadryl Po*) 25 mg PO Q6H PRN PRN Reason: itching Docusate Sodium (Colace Cap*) 100 mg PO BID [facility] Last Admin: 05/07/17 08:04 Dose: 100 mg Enoxaparin Sodium (Lovenox(*)) 40 mg SUBCUT Q24H [facility] Last Admin: 05/06/17 13:58 Dose: 40 mg Lactated Ringer's (Lactated Ringers 1000 Ml Bag*) 1,000 mls @ 125 mls/hr IV PER RATE [facility] Last Admin: 05/05/17 00:29 Dose: 125 mls/hr Lactated Ringer's (Lactated Ringers 1000 Ml Bag*) 1,000 mls @ 100 mls/hr IV PER RATE [facility] Last Admin: 05/05/17 23:31 Dose: 100 mls/hr Magnesium Hydroxide (Milk Of Magnesia Liq*) 30 ml PO BID [facility] Last Admin: 05/07/17 07:25 Dose: Not Given Magnesium Hydroxide (Milk Of Magnesia Liq*) 30 ml PO Q6H PRN PRN Reason: constipation Omeprazole (Prilosec Cap*) 20 mg PO DAILY [facility] Last Admin: 05/07/17 08:04 Dose: 20 mg Ondansetron HCl (Zofran Inj*) 4 mg IV Q6H PRN PRN Reason: NAUSEA Tramadol HCl (Ultram*) 50 mg PO Q8H PRN PRN Reason: PAIN Last Admin: 05/07/17 05:15 Dose: 50 mg -
[2017-05-07] MEDS: Acetaminophen TAB* 325 MG PO PRN ×2 (11:41→19:50)
[2017-05-07] MEDS: Enoxaparin(*) 40 MG/0.4 ML SYR SUBCUT SCH (14:27)
[2017-05-07 14:43] LABS: Urine Appearance Clear; Urine Blood Negative (Negative); Urine Color Straw; Urine Ketones Negative (Negative); Urine Protein Negative (Negative); Urine Specific Gravity 1.005 (1.010-1.030); Urine Urobilinogen Negative (Negative)
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
--- NOTE | 2017-05-07 22:48 | PN ---
Progress Note - Progress Note Date of Service: 05/07/17 Note: Paged for confusion and restless behavior. Appears patient may have been on routine benzo's at home. Could be benzo withdrawal. Has not gotten any other meds that may have contributed to this other than possibly tramadol. Will give a dose a xanax and reassess. D/C benadryl.
[2017-05-08] MEDS ORDERED: Haloperidol INJ IV/IM* 5 MG/ML AMP IV SLOW PU ONE (03:33)
[2017-05-08] MEDS ORDERED: ALPRAZolam TAB* 0.5 MG PO ONE (03:35)
[2017-05-08] MEDS ORDERED: ALPRAZolam TAB* 0.5 MG ONE (03:41)
[2017-05-08 05:27] LABS: ABS Basophils 0.1 10^3/ul (0-0.2); ABS Eosinophils 0.2 10^3/ul (0-0.6); ABS Lymphocytes 1.4 10^3/ul (1.0-4.8); ABS Neutrophils 7.8 10^3/ul (1.5-7.7); ABS Nucleated RBC 0 10^3/ul; Eosinophil % 1.6 % (0-6); Hematocrit 31 % (35-47); Hemoglobin 10.4 g/dl (12.0-16.0); Lymphocyte % 13.7 % (25-47); Mean Corpuscular HGB Conc 34 g/dl (31-36); Mean Corpuscular Hemoglobin 31 pg (27-31); Mean Corpuscular Volume 91 fL (80-97); Mean Platelet Volume 8 um3 (7.4-10.4); Nucleated Red Blood Cells % 0.1; Platelet Count 308 10^3/ul (150-450); Red Blood Count 3.38 10^6/ul (4.0-5.4); Red Cell Distribution Width 15 % (10.5-15); White Blood Count 10.4 10^3/ul (3.5-10.8)
[2017-05-08 05:37] LABS: EGFR Non-African American 69.5 (>60)
[2017-05-08] MEDS: Magnesium Hydroxide LIQ* 30 ML UDC PO SCH ×2 (08:49→20:31)
[2017-05-08] MEDS: Docusate CAP* 100 MG PO SCH ×2 (08:53→20:31)
[2017-05-08] MEDS: Acetaminophen TAB* 325 MG PO PRN (08:54)
[2017-05-08] MEDS: Omeprazole CAP* 20 MG PO SCH (08:54)
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
[2017-05-08] MEDS: Acetaminophen TAB* 325 MG PO SCH ×2 (11:05→18:06)
--- NOTE | 2017-05-08 12:21 | PN ---
Progress Note - Progress Note Date of Service: 05/08/17 SOAP: Subjective: []Patient was seen out of bed in chair. She reports no post operative pain of her LLE. Denies CP, SOB, dizziness, nausea or confusion. She feels that she was confused previously due to medication, but feels well now. Objective: []General: Well appearing, NAD. Calm and cooperative. Unaware why her room was moved ( due to getting out of bed unattended) but alert to person, place and time. LLE: Dressing changed. Incision CDI. DF/PF intact. DP2+. Sensation intact distally. Vital Signs Temp 98.8 F 05/08/17 11:08 Pulse 91 05/08/17 11:08 Resp 16 05/08/17 11:08 BP 133/72 05/08/17 11:08 Pulse Ox 95 05/08/17 11:08 Intake & Output 05/07/17 05/08/17 05/08/17 18:59 06:59 18:59 Intake Total 870 1100 25 Output Total 2900 1300 Balance -2030 -200 25 Intake: Oral 870 1100 25 Output: Urine 2900 1300 Other: Estimated Void Medium # Bowel Movements 1 1 Estimated Stool Amount Large Medium # Voids 1 Laboratory Last Values WBC 10.4 10^3/ul (3.5-10.8) 05/08/17 04:57 RBC 3.38 10^6/ul (4.0-5.4) L 05/08/17 04:57 Hgb 10.4 g/dl (12.0-16.0) L 05/08/17 04:57 Hct 31 % (35-47) L 05/08/17 04:57 MCV 91 fL (80-97) 05/08/17 04:57 MCH 31 pg (27-31) 05/08/17 04:57 MCHC 34 g/dl (31-36) 05/08/17 04:57 RDW 15 % (10.5-15) 05/08/17 04:57 Plt Count 308 10^3/ul (150-450) 05/08/17 04:57 MPV 8 um3 (7.4-10.4) 05/08/17 04:57 Neut % (Auto) 74.7 % (38-83) 05/08/17 04:57 Lymph % (Auto) 13.7 % (25-47) L 05/08/17 04:57 [place] % (Auto) 9.2 % (1-9) H 05/08/17 04:57 Eos % (Auto) 1.6 % (0-6) 05/08/17 04:57 Baso % (Auto) 0.8 % (0-2) 05/08/17 04:57 Absolute Neuts (auto) 7.8 10^3/ul (1.5-7.7) H 05/08/17 04:57 Absolute Lymphs (auto) 1.4 10^3/ul (1.0-4.8) 05/08/17 04:57 Absolute Monos (auto) 1.0 10^3/ul (0-0.8) H 05/08/17 04:57 Absolute Eos (auto) 0.2 10^3/ul (0-0.6) 05/08/17 04:57 Absolute Basos (auto) 0.1 10^3/ul (0-0.2) 05/08/17 04:57 Absolute Nucleated RBC 0 10^3/ul 05/08/17 04:57 Nucleated RBC % 0.1 05/08/17 04:57 ESR 40 mm/Hr (0-40) 05/04/17 20:20 INR (Anticoag Therapy) 1.01 (0.77-1.02) 05/05/17 05:19 Sodium 138 mmol/L (133-145) 05/08/17 04:57 Potassium 3.5 mmol/L (3.5-5.0) 05/08/17 04:57 Chloride 103 mmol/L (101-111) 05/08/17 04:57 Carbon Dioxide 29 mmol/L (22-32) 05/08/17 04:57 Anion Gap 6 mmol/L (2-11) 05/08/17 04:57 BUN 11 mg/dL (6-24) 05/08/17 04:57 Creatinine 0.82 mg/dL (0.51-0.95) 05/08/17 04:57 Est GFR ( Amer) 89.4 (>60) 05/08/17 04:57 Est GFR (Non-Af Amer) 69.5 (>60) 05/08/17 04:57 BUN/Creatinine Ratio 13.4 (8-20) 05/08/17 04:57 Glucose 105 mg/dL (70-100) H 05/08/17 04:57 Lactic Acid 0.5 mmol/L (0.5-2.0) 05/04/17 20:20 Calcium 8.9 mg/dL (8.6-10.3) 05/08/17 04:57 Magnesium 2.2 mg/dL (1.9-2.7) 05/06/17 06:21 Total Bilirubin 0.60 mg/dL (0.2-1.0) 05/04/17 20:20 AST 14 U/L (13-39) 05/04/17 20:20 ALT 18 U/L (7-52) 05/04/17 20:20 Alkaline Phosphatase 133 U/L (34-104) H 05/04/17 20:20 C-Reactive Protein 61.61 mg/L (< 5.00) H 05/04/17 20:20 Total Protein 6.7 g/dL (6.4-8.9) 05/04/17 20:20 Albumin 3.6 g/dL (3.2-5.2) 05/04/17 20:20 Globulin 3.1 g/dL (2-4) 05/04/17 20:20 Albumin/Globulin Ratio 1.2 (1-3) 05/04/17 20:20 Vitamin B12 210 pg/mL (180-914) 05/08/17 04:57 TSH 0.51 mcIU/mL (0.34-5.60) 05/08/17 04:57 Urine Color Straw 05/07/17 14:30 Urine Appearance Clear 05/07/17 14:30 Urine pH 7.0 (5-9) 05/07/17 14:30 Ur Specific [place] 1.005 (1.010-1.030) L 05/07/17 14:30 Urine Protein Negative (Negative) 05/07/17 14:30 Urine Ketones Negative (Negative) 05/07/17 14:30 Urine Blood Negative (Negative) 05/07/17 14:30 Urine Nitrate Negative (Negative) 05/07/17 14:30 Urine Bilirubin Negative (Negative) 05/07/17 14:30 Urine Urobilinogen Negative (Negative) 05/07/17 14:30 Ur Leukocyte Esterase Negative (Negative) 05/07/17 14:30 Urine WBC (Auto) 3+(>20/hpf) (Absent) H 05/05/17 04:05 Urine RBC (Auto) 3+(>10/hpf) (Absent) H 05/05/17 04:05 Ur Squamous Epith Cells Present (Absent) H 05/05/17 04:05 Urine Bacteria 1+ (Absent) H 05/05/17 04:05 Urine Glucose Negative (Negative) 05/07/17 14:30 Blood Type O Positive 05/04/17 20:20 Antibody Screen Negative 05/04/17 20:20 Assessment: []Stable 67 y/o female s/p L hemiarthroplasty for femur fx 05/[address] Valero. Plan: - DVT prophyaxis- lovenox x 2 weeks post-op - Continue PT/ OT, hip precautions - Continue current pain control - F/u with Dr. Valero within 10-14 days post-op
--- NOTE | 2017-05-08 14:01 | RAD ---
HISTORY: Acute altered mental status COMPARISONS: None TECHNIQUE: Multiple contiguous axial CT scans were obtained of the head without intravenous contrast. FINDINGS: HEMORRHAGE/INFARCT: There is no hemorrhage or acute infarct. MASSES/SHIFT: There is no mass or shift. EXTRA-AXIAL SPACES: There are no extra-axial fluid collections. SULCI AND VENTRICLES: The sulci and ventricles are normal in size and position for the patient's stated age. CEREBRUM: There are no focal parenchymal abnormalities. BRAINSTEM: There are no focal parenchymal abnormalities. CEREBELLUM: There are no focal parenchymal abnormalities. VESSELS: The vessels are grossly normal. PARANASAL SINUSES: There is a mucous retention cyst versus polypoid mucosal thickening of the right maxillary sinus. ORBITS: The orbits are unremarkable. BONES AND SOFT TISSUE: No bone or soft tissue abnormalities are noted. OTHER: None IMPRESSION: NO ACUTE INTRACRANIAL PATHOLOGY.
[2017-05-08] MEDS: Enoxaparin(*) 40 MG/0.4 ML SYR SUBCUT SCH ×2 (16:13→18:06)
[2017-05-08] MEDS ORDERED: cefTRIAXone(*) 1 GM in NS 0.9% 50 ML* 50 ML IVPB ONE (16:55)
[2017-05-08 22:16] LABS: Urine Appearance Clear; Urine Blood 1+ (Negative); Urine Color Straw; Urine Ketones Negative (Negative); Urine Protein Negative (Negative); Urine Specific Gravity 1.004 (1.010-1.030); Urine Urobilinogen Negative (Negative)
[2017-05-09] MEDS: Acetaminophen TAB* 325 MG PO SCH ×2 (02:53→11:06)
[2017-05-09 04:51] LABS: ABS Basophils 0.1 10^3/ul (0-0.2); ABS Eosinophils 0.2 10^3/ul (0-0.6); ABS Lymphocytes 1.5 10^3/ul (1.0-4.8); ABS Monocytes 0.7 10^3/ul (0-0.8); ABS Neutrophils 8.8 10^3/ul (1.5-7.7); ABS Nucleated RBC 0 10^3/ul; Eosinophil % 1.9 % (0-6); Hematocrit 31 % (35-47); Mean Corpuscular HGB Conc 33 g/dl (31-36); Mean Corpuscular Hemoglobin 30 pg (27-31); Mean Corpuscular Volume 91 fL (80-97); Mean Platelet Volume 8 um3 (7.4-10.4); Nucleated Red Blood Cells % 0; Platelet Count 318 10^3/ul (150-450); Red Blood Count 3.36 10^6/ul (4.0-5.4); Red Cell Distribution Width 15 % (10.5-15); White Blood Count 11.2 10^3/ul (3.5-10.8)
[2017-05-09 05:06] LABS: EGFR Non-African American 69.5 (>60)
[2017-05-09] MEDS: Docusate CAP* 100 MG PO SCH (08:51)
[2017-05-09] MEDS: Omeprazole CAP* 20 MG PO SCH (08:51)
[2017-05-09] MEDS: Magnesium Hydroxide LIQ* 30 ML UDC PO SCH (08:51)
[2017-05-09] MEDS ORDERED: Cephalexin CAP* 500 MG PO SCH (09:00)
[2017-05-09] MEDS: Enoxaparin(*) 40 MG/0.4 ML SYR SUBCUT SCH (14:05)
--- NOTE | 2017-05-09 14:11 | PN ---
Progress Note - Progress Note Date of Service: 05/09/17 SOAP: Subjective: Patient was seen out of bed in chair. She reports no post operative pain of her LLE. Denies CP, SOB, dizziness, nausea, confusion, dysuria, urinary frequency, cough, sore throat. Pain has been well controlled with Tylenol. PT went well this morning, ambulating and taking good precautions. Objective: Temp Pulse Resp BP Pulse Ox 98.3 F 87 16 118/69 96 05/09/17 11:29 05/09/17 11:29 05/09/17 11:29 05/09/17 11:29 05/09/17 11:29 Laboratory Results - last 24 hr 05/08/17 05/09/17 05/09/17 22:00 04:32 04:32 WBC 11.2 H RBC 3.36 L Hgb 10.0 L Hct 31 L MCV 91 MCH 30 MCHC 33 RDW 15 Plt Count 318 MPV 8 Neut % (Auto) 77.9 Lymph % (Auto) 13.0 L [place] % (Auto) 6.4 Eos % (Auto) 1.9 Baso % (Auto) 0.8 Absolute Neuts (auto) 8.8 H Absolute Lymphs (auto) 1.5 Absolute Monos (auto) 0.7 Absolute Eos (auto) 0.2 Absolute Basos (auto) 0.1 Absolute Nucleated RBC 0 Nucleated RBC % 0 Sodium 138 Potassium 3.7 Chloride 104 Carbon Dioxide 28 Anion Gap 6 BUN 12 Creatinine 0.82 Est GFR ( Amer) 89.4 Est GFR (Non-Af Amer) 69.5 BUN/Creatinine Ratio 14.6 Glucose 98 Calcium 8.9 Urine Color Straw Urine Appearance Clear Urine pH 6.0 Ur Specific [place] 1.004 L Urine Protein Negative Urine Ketones Negative Urine Blood 1+ H Urine Nitrate Negative Urine Bilirubin Negative Urine Urobilinogen Negative Ur Leukocyte Esterase 1+ H Urine WBC (Auto) Trace(0-5/hpf) Urine RBC (Auto) Trace(0-2/hpf) Ur Squamous Epith Cells Present H Urine Bacteria 1+ H Urine Glucose Negative General: Well appearing, NAD. Alert to person, place and time. Normal mood and affect. LLE: Dressing changed. Incision CDI, no erythema, induration, warmth. DF/PF intact. DP2+. Sensation intact distally. Assessment: 67 y/o female s/p L hemiarthroplasty for femur fx 05/[address] Valero, P/O day 4. Slight bump in WBC count today without symptoms, fever. Plan: - DVT prophyaxis- lovenox x 2 weeks post-op - Continue PT, dressing changes, hip precautions with VNS - Continue current pain control - Continue cephalexin at home for UTI - F/u with Dr. Valero within 10-14 days post-op - D/C home today
[2017-05-09 17:03] VITALS: BP 129/64
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
== END 2017-05-09 17:00 | disposition home health service (06) | DRG 470 ==
LOC: ED 19:12 → SSU 20:51
PROVIDERS: ADMIT Internal Medicine; ATTEND Internal Medicine
PROC: 0SRS0JZ Replacement of Left Hip Joint, Femoral Surface with Synthetic Substitute, Open Approach (ICD-10-PCS; principal; 2017-05-05 10:58)
DX: S72.002A Fracture of unspecified part of neck of left femur, initial encounter for closed fracture (principal); I10 Essential (primary) hypertension; Y04.0XXA Assault by unarmed brawl or fight, initial encounter; K21.9 Gastro-esophageal reflux disease without esophagitis; N39.0 Urinary tract infection, site not specified; I95.9 Hypotension, unspecified; R41.0 Disorientation, unspecified; R44.1 Visual hallucinations; T40.4X5A Adverse effect of other synthetic narcotics, initial encounter; Y92.239 Unspecified place in hospital as the place of occurrence of the external cause; Y92.009 Unspecified place in unspecified non-institutional (private) residence as the place of occurrence of the external cause; Z88.6 Allergy status to analgesic agent; Z72.89 Other problems related to lifestyle; Z87.891 Personal history of nicotine dependence; Z88.5 Allergy status to narcotic agent; Z90.710 Acquired absence of both cervix and uterus; Z80.0 Family history of malignant neoplasm of digestive organs
CPT/HCPCS: 36415; 70450; 71045; 72170; 72192; 80048; 80053; 81003; 81015; 82607; 83605; 83735; 84443; 85025; 85610; 85652; 86140; 86850; 86900; 86901; 87086; 88305; 88311; 90686; 93005; 94760; 99283; A9270-GY; C1776; J0330; J0690; J0696; J1100; J1170; J1240; J1644; J1650; J1885; J2250; J2405; J2704; J3010

== ENCOUNTER 2017-06-16 15:45 | Day surgery (SDC) | payer MEDICARE ==
[2017-06-16] MEDS ORDERED: NS 0.9% 1000 ML* 1,000 ML IV ONE (15:52)
[2017-06-16] MEDS ORDERED: Ondansetron INJ* 2 MG/ML VIAL IV ONE (15:53)
[2017-06-16] MEDS ORDERED: Morphine INJ* 2 MG/ML 1 ML CARPUJECT IV ONE ×2 (15:53→16:36)
[2017-06-16] MEDS ORDERED: Morphine INJ* 2 MG/ML 1 ML CARPUJECT ONE (16:35)
--- NOTE | 2017-06-16 16:41 | RAD ---
HISTORY: Pain, swelling, status post left hip replacement, fall COMPARISONS: June 12, 2017 VIEWS: 1, Single frontal view of the pelvis FINDINGS: BONE DENSITY: Normal. BONES: The patient is status post left hemiarthroplasty. There has been superior dislocation of the femoral component with with respect to the left acetabulum. JOINTS: There is osteoarthritis of the right hip. The patient is status post left hip hemiarthroplasty. ALIGNMENT: There is no dislocation. SOFT TISSUES: Unremarkable. OTHER FINDINGS: None. IMPRESSION: LEFT HIP HEMIARTHROPLASTY DISLOCATION
[2017-06-16] MEDS ORDERED: Midazolam* 1 MG/ML 10 ML VIAL (10 MG) ONE (16:53)
[2017-06-16] MEDS ORDERED: Naloxone* 0.4 MG/ML 10 ML VIAL ONE (16:53)
[2017-06-16] MEDS ORDERED: Morphine INJ* 4 MG/ML 1 ML SYRINGE (NEW SYRINGE VERSION) ONE (16:53)
[2017-06-16] MEDS ORDERED: Flumazenil* 0.1 MG/ML 5 ML MDV ONE (16:54)
[2017-06-16] MEDS ORDERED: Morphine INJ* 4 MG/ML 1 ML SYRINGE (NEW SYRINGE VERSION) IV ONE (17:01)
[2017-06-16] MEDS ORDERED: DiMENhydriNATE IV* 50 MG/ML VIAL IV PUSH PRN (17:27)
[2017-06-16] MEDS ORDERED: Buffered Lidocaine 0.9% SYRIN* 5 ML/SYR SYRINGE INTRADERM ONE (17:27)
[2017-06-16] MEDS ORDERED: PROCHLORPERAZINE INJ 5 MG/ML 2 ML VIAL IV PRN (17:27)
[2017-06-16] MEDS ORDERED: Acetaminophen TAB* 325 MG PO PRN (17:27)
[2017-06-16] MEDS ORDERED: Naloxone* 0.4 MG/ML 1 ML VIAL IV PRN (17:27)
[2017-06-16] MEDS ORDERED: Ondansetron INJ* 2 MG/ML VIAL IV PRN (17:27)
[2017-06-16] MEDS ORDERED: fentaNYL* 50 MCG/ML 2 ML VIAL (100 MCG VIAL) IV PRN (17:27)
[2017-06-16] MEDS ORDERED: Midazolam* 1 MG/ML 2 ML VIAL (2 MG) ONE ×2 (17:43→18:08)
[2017-06-16] MEDS ORDERED: fentaNYL* 50 MCG/ML 2 ML VIAL (100 MCG VIAL) ONE (17:43)
[2017-06-16] MEDS ORDERED: Lidocaine 2% PF * 5 ML VIAL ONE (17:44)
[2017-06-16] MEDS ORDERED: Dexamethasone IV* 4 MG/ML 1 ML (4 MG) ONE (17:44)
[2017-06-16] MEDS ORDERED: Propofol* 10 MG/ML 20 ML BTL IV PUSH ONE (17:44)
[2017-06-16] MEDS ORDERED: Famotidine IV* 10 MG/ML 2 ML (20 mg) ONE (17:44)
[2017-06-16] MEDS ORDERED: Succinylcholine* 20 MG/ML 10 ML VIAL ONE (17:44)
--- NOTE | 2017-06-16 18:45 | RAD ---
HISTORY: Status post closed reduction of left hip COMPARISONS: June 16, 2017 at 4:36 PM VIEWS: 1, single frontal projection of the left hip FINDINGS: BONE DENSITY: Normal. BONES: The patient is status post left hip hemiarthroplasty. JOINTS: There is no arthropathy. ALIGNMENT: There has been interval reduction of the left hip dislocation. SOFT TISSUES: Unremarkable. OTHER FINDINGS: None. IMPRESSION: STATUS POST LEFT HIP HEMIARTHROPLASTY WITH INTERVAL REDUCTION OF DISLOCATION.
[2017-06-16] MEDS ORDERED: Acetaminophen TAB* 325 MG ONE (19:02)
[2017-06-16 19:06] VITALS: BP 133/77
--- NOTE | 2017-06-18 22:36 | ED ---
Arabella Solis Abhishek, scribed for Tremayne Vaughn MD on 06/16/17 at 1644 . Lower Extremity - HPI Summary HPI Summary: This patient is a 67 year old F BIBA with a chief complaint of hip pain since 01/24. The pt recently had a hip replacement surgery and felt a pop today. The pain occurred after the pt was bending down. The onset of pain and pop and the pt fell down. No allergies were reported. Pertinent PMHx includes HTN. Pt describes the pain as constant. The patient rates the pain 9/10 in severity. Symptoms aggravated by movement. Symptoms alleviated by nothing. Pt reports diminished range of motion and non-ambulatory. - History of Current Complaint Chief Complaint: EDExtremityLower Stated Complaint: LT HIP PAIN Pain Intensity: 9 - Allergies/Home Medications Allergies/Adverse Reactions: Allergies Allergy/AdvReac Type Severity Reaction Status Date / Time fentanyl Allergy Hallucinati Verified 06/16/17 15:51 ons narcotics Allergy Nausea And Uncoded 05/04/17 19:19 Vomiting Home Medications: Home Medications Losartan TAB* [Cozaar TAB*] 100 mg PO DAILY 06/16/17 [History Confirmed 06/16/17 ] Methylsulfonylmethane [MSM] 1,000 mg PO DAILY 06/16/17 [History Confirmed ] Potassium Gluconate [Potassium] 600 mg PO TID 06/16/17 [History Confirmed ] Spironolactone TAB* [Aldactone TAB*] 25 mg PO DAILY 06/16/17 [History Confirmed 06/16/17] PMH/Surg Hx/FS Hx/Imm Hx Cardiovascular History: Reports: Hx Hypercholesterolemia, Hx Hypertension Respiratory History: Reports: Hx Pneumonia - few years ago Denies: Hx Sleep Apnea Musculoskeletal History: Reports: Hx Orthopedic Injury - current left hip fracture, Other Musculoskeletal History - shoulder surgery 20 years ago; left hip fracture Sensory History: Reports: Hx Contacts or Glasses Denies: Hx Legally Blind, Hx Deafness, Hx Hearing Aid Opthamlomology History: Reports: Hx Contacts or Glasses Denies: Hx Legally Blind Psychiatric History: Reports: Hx Anxiety, Hx Depression, Hx Panic Disorder - Cancer History Hx Chemotherapy: No Hx Radiation Therapy: No - Surgical History Surgery Procedure, Year, and Place: hysterectomy 15 years ago [facility]; left shoulder 20 years ago [facility] Hx Anesthesia Reactions: Yes - vomiting - Immunization History Date of Influenza Vaccine: denies Infectious Disease History: No Infectious Disease History: Denies: Traveled Outside the [place] in Last 30 Days - Family History Known Family History: Positive: Blood Disorder - Blood clotting in mother, Other - Cancer - Social History Alcohol Use: Occasionally Hx Substance Use: No Substance Use Type: Reports: None Hx Tobacco Use: Yes Smoking Status (MU): Never Smoked Tobacco Review of Systems Constitutional: Negative Eyes: Negative ENT: Negative Cardiovascular: Negative Respiratory: Negative Gastrointestinal: Negative Genitourinary: Negative Musculoskeletal: Other - Hip pain Positive: Other - Diminished range of motion and non-ambulatory Skin: Negative Neurological: Negative Psychological: Normal All Other Systems Reviewed And Are Negative: Yes Physical Exam - Summary Physical Exam Summary: Appearance: Well-appearing, Well-nourished Skin: Warm, Dry, No rash, No deformity Left hip scar is well healed Eyes: Normal, PERRL, EOMI, sclera anicteric ENT: Normal Neck: Supple, nontender Respiratory: Clear to auscultation Cardiovascular: S1, S2, no murmur, no rub, no gallop Abdomen: Soft, nontender, no organomegaly Bowel sounds: Present Musculoskeletal: Normal, Strength/ROM Intact, no edema, pulses symmetrical, Normal motion at the ankle and the knee Neurological: Normal, A&Ox3, cranial nerves II-XII WNL, follows commands, gait not tested, sensation intact to pin and light touch, Good sensation in the foot Anguiano and thigh Psychiatric: affect normal, behavior appropriate, dressed appropriately, judgment intact Triage Information Reviewed: Yes Vital Signs On Initial Exam: Initial Vitals Temp Pulse Resp BP Pulse Ox 97.5 F 54 20 159/84 99 06/16/17 15:48 06/16/17 15:48 06/16/17 15:48 06/16/17 15:48 06/16/17 15:48 Vital Signs Reviewed: Yes Diagnostics - Vital Signs Vital Signs Temp Pulse Resp BP Pulse Ox 06/16/17 15:57 20 06/16/17 15:48 97.5 F 54 20 159/84 99 - Laboratory Lab Statement: Any lab studies that have been ordered have been reviewed, and results considered in the medical decision making process. - Radiology Pelvis X-ray Radiology Interpretation Completed By: Radiologist - Pelvis X-ray reveals, per radiologist, LEFT HIP HEMIARTHROPLASTY DISLOCATION ED physician has reviewed this radiology report and agrees. Lower Extremity Course/Dx - Course Course Of Treatment: The pt is a 67 y/o F with a chief complaint of hip pain. Pt recently had a hip replacement surgery and states that she heard a "pop" today while bending over. Pt recieved a pelvic examination and Pelvis X-ray revealing a dislocation. The pt will be transferred to the OR to see Dr. Galeana in order to receive further treatment. The Dx will be prosthetic hip and posterior hip dislocation. Dr. Galeana to take patient to the OR - Diagnoses Provider Diagnoses: Posterior dislocation of hip Discharge - Discharge Plan Condition: Stable Disposition: HOME The documentation as recorded by the Arabella mims Abhishek accurately reflects the service I personally performed and the decisions made by me, Tremayne Vaughn MD.
--- NOTE | 2017-06-19 05:53 | OP ---
CC: PCP, Madhavi Guzman MD * DATE OF OPERATION: 06/16/17 - [facility] DATE OF : 50 SURGEON: Stephanie Galeana MD TOUR PRODUCTION SUPERVISOR: None available. ANESTHESIOLOGIST: Ana M Shah MD ANESTHESIA: General. PRE-OP DIAGNOSIS: Left hip hemiarthroplasty dislocation. POST-OP DIAGNOSIS: Left hip hemiarthroplasty dislocation. OPERATIVE PROCEDURE: Left hip closed reduction. INDICATIONS: Justine Guerrier is a 67-year-old female who underwent a hemiarthroplasty in April by Dr. Valero. She was not compliant with postoperative hip precaution and subsequently dislocated her hip. She presented to the ER and was evaluated and the plan was for closed reduction as soon as possible. Risks and benefits were discussed at length and it was discussed that she may need eventually a revision surgery. She will likely follow up with one of my joints partners, Dr. Beverly, after she has healed, especially if she has any further dislocations. COMPLICATIONS: None. ESTIMATED BLOOD LOSS: None. DESCRIPTION OF PROCEDURE: The patient was greeted in the preoperative area by the attending surgeon. Correct extremity was marked and consent was signed. The patient was brought back to the operating suite where she was left in the stretcher. She underwent general anesthesia and endotracheal intubation, after which when the patient was completely relaxed and asleep, gentle reduction was done with countertraction on the pelvis. The hip was reduced without incident. The x- rays on the fluoro confirmed concentric reduction and then a knee immobilizer was placed. She was then awoken from anesthesia and transferred to PACU in stable condition. POSTOPERATIVE PLAN: She will have to observe posterior hip precautions for 6 weeks. She will be on knee immobilizer while walking. I will have her see me in 2 weeks or my partner, Dr. Beverly, in 2 weeks postop. [id number]/[facility] #: [id number] MTDD
== END 2017-06-16 19:27 | disposition home or self-care (01) ==
LOC: ED 15:45 → OR 18:01
PROVIDERS: ATTEND Orthopaedic Surgery
DX: T84.021A Dislocation of internal left hip prosthesis, initial encounter (principal); I10 Essential (primary) hypertension; E78.00 Pure hypercholesterolemia, unspecified; K21.9 Gastro-esophageal reflux disease without esophagitis
CPT/HCPCS: 72170; 99283; A9270-GY; J0330; J1100; J2250; J2270; J2310; J2405; J2704; J3010

== ENCOUNTER 2017-06-24 09:35 | Day surgery (SDC) | payer MEDICARE ==
[2017-06-24] MEDS ORDERED: Morphine INJ* 4 MG/ML 1 ML SYRINGE (NEW SYRINGE VERSION) IV ONE (09:42)
[2017-06-24] MEDS ORDERED: Morphine INJ* 4 MG/ML 1 ML SYRINGE (NEW SYRINGE VERSION) ONE (09:43)
[2017-06-24] MEDS ORDERED: NS 0.9% 1000 ML* 1,000 ML IV SCH (09:45)
[2017-06-24] MEDS ORDERED: Propofol* 10 MG/ML 20 ML BTL IV PUSH ONE (11:28)
[2017-06-24] MEDS ORDERED: Lidocaine 2% PF * 5 ML VIAL ONE (11:28)
[2017-06-24] MEDS ORDERED: Succinylcholine* 20 MG/ML 10 ML VIAL ONE (11:28)
[2017-06-24] MEDS ORDERED: Midazolam* 1 MG/ML 5 ML VIAL (5 MG) ONE (11:29)
[2017-06-24] MEDS ORDERED: Ondansetron INJ* 2 MG/ML VIAL ONE (11:29)
[2017-06-24] MEDS ORDERED: Dexamethasone IV* 4 MG/ML 1 ML (4 MG) ONE (11:29)
--- NOTE | 2017-06-24 11:33 | RAD ---
INDICATION: Left hip pain with evidence of dislocation COMPARISON: Most recent comparison radiograph is dated June 16, 2017 TECHNIQUE: A single AP view of the hip was obtained. FINDINGS: The prosthetic femoral head is displaced from the acetabulum in the superior direction. Either the acetabular cup has dislocated from the [employer] acetabulum or this is a unipolar prosthesis that has dislocated from the [place] acetabulum. There is no radiographically apparent fracture or periprosthetic or otherwise in the AP projection. IMPRESSION: Dislocated prosthetic left hip as described above. This is either displacement of a unipolar left hip prosthesis or displacement of the acetabular component of a bipolar prosthesis while the articulation of a prosthesis remains intact. Please correlate to details of original surgery.
[2017-06-24] MEDS ORDERED: Naloxone* 0.4 MG/ML 1 ML VIAL IV PRN (12:50)
[2017-06-24] MEDS ORDERED: Ketorolac INJ* 30 MG/ML 1 ML VIAL IV PRN (12:50)
[2017-06-24] MEDS ORDERED: Ondansetron INJ* 2 MG/ML VIAL IV PRN (12:50)
--- NOTE | 2017-06-24 13:17 | ED ---
Yeni Solis Elizabeth, scribed for Lincoln Hidalgo MD on 06/24/17 at 1157 . Lower Extremity - HPI Summary HPI Summary: The patient is a 67 year old female presenting to the emergency department with a left hip dislocation and hip pain. Patient notes that she woke up with the hip dislocated. She had a hip replacement 6 weeks ago and a previous hip dislocation a few weeks ago. - History of Current Complaint Stated Complaint: LT HIP PAIN Hx Obtained From: Patient Mechanism Of Injury: Unknown Onset of Pain: Hours Onset/Duration: Hours Severity Currently: Moderate Pain Intensity: 8 Pain Scale Used: 0-10 Numeric Timing: Constant Associated Signs And Symptoms: Positive: Negative, Other - dislocated left hip - Allergies/Home Medications Allergies/Adverse Reactions: Allergies Allergy/AdvReac Type Severity Reaction Status Date / Time fentanyl Allergy Hallucinati Verified 06/16/17 15:51 ons narcotics Allergy Nausea And Uncoded 05/04/17 19:19 Vomiting Home Medications: Home Medications ALPRAZolam TAB* [Xanax TAB*] 0.25 mg PO BID PRN 06/24/17 [History Confirmed ] PMH/Surg Hx/FS Hx/Imm Hx Cardiovascular History: Reports: Hx Hypercholesterolemia, Hx Hypertension Respiratory History: Reports: Hx Pneumonia - few years ago Denies: Hx Sleep Apnea Musculoskeletal History: Reports: Hx Orthopedic Injury - current left hip fracture, Other Musculoskeletal History - shoulder surgery 20 years ago; left hip fracture Sensory History: Reports: Hx Contacts or Glasses Denies: Hx Legally Blind, Hx Deafness, Hx Hearing Aid Opthamlomology History: Reports: Hx Contacts or Glasses Denies: Hx Legally Blind Psychiatric History: Reports: Hx Anxiety, Hx Depression, Hx Panic Disorder - Cancer History Hx Chemotherapy: No Hx Radiation Therapy: No - Surgical History Surgery Procedure, Year, and Place: hysterectomy 15 years ago [facility]; left shoulder 20 years ago [facility] Hx Anesthesia Reactions: Yes - vomiting - Immunization History Date of Influenza Vaccine: denies Infectious Disease History: No Infectious Disease History: Denies: Traveled Outside the [place] in Last 30 Days - Family History Known Family History: Positive: Blood Disorder - Blood clotting in mother, Other - Cancer - Social History Alcohol Use: Occasionally Hx Substance Use: No Substance Use Type: Reports: None Hx Tobacco Use: Yes Smoking Status (MU): Never Smoked Tobacco Review of Systems Negative: Epistaxis Musculoskeletal: Other - dislocated left hip All Other Systems Reviewed And Are Negative: Yes Physical Exam - Summary Physical Exam Summary: General: well-appearing, no pain distress Skin: warm, color reflects adequate perfusion, dry Head: normal Eyes: EOMI, VIKTOR ENT: normal Neck: supple, nontender Respiratory: CTA, breath sounds present Cardiovascular: RRR Abdomen: soft, nontender Bowel: present Musculoskeletal: left leg shortened with internal rotation, pulses present, no sensation deficit Neurological: normal, sensory/motor intact, A&O x3 Psychological: affect/mood appropriate Triage Information Reviewed: Yes Vital Signs On Initial Exam: Initial Vitals Temp Pulse Resp BP Pulse Ox 97.9 F 92 18 158/90 100 06/24/17 09:36 06/24/17 09:36 06/24/17 09:36 06/24/17 09:36 06/24/17 09:36 Vital Signs Reviewed: Yes Diagnostics - Vital Signs Vital Signs Temp Pulse Resp BP Pulse Ox 06/24/17 09:47 18 06/24/17 09:36 97.9 F 92 18 158/90 100 - Laboratory Lab Statement: Any lab studies that have been ordered have been reviewed, and results considered in the medical decision making process. - Radiology Left Hip XR Xray Interpretation: Positive (See Comments) - IMPRESSION: Dislocated prosthetic left hip as described above. This is either displacement of a unipolar left hip prosthesis or displacement of the acetabular component of a bipolar prosthesis while the articulation of a prosthesis remains intact. Please correlate to details of original surgery. Dr. Hidalgo has reviewed this report. Radiology Interpretation Completed By: Radiologist Lower Extremity Course/Dx - Course Course Of Treatment: DR ROMERO, ORTHOPEDICS, SAW PATIENT IN THE ED AND TOOK HER TO THE OR. - Diagnoses Provider Diagnoses: Recurrent dislocation, left hip Discharge - Discharge Plan Condition: Stable Disposition: ADMITTED TO [facility] documentation as recorded by the Yeni mims Elizabeth accurately reflects the service I personally performed and the decisions made by , Lincoln Hidalgo MD.
[2017-06-24 13:23] VITALS: BP 139/74
--- NOTE | 2017-06-24 13:28 | RAD ---
CPT II Codes: 6045F INDICATION: Dislocated prostatic left hip TECHNIQUE: Intraoperative fluoroscopy was provided during reduction of a dislocated left prosthetic. FINDINGS: 3 spot films depict interval reduction of a dislocated left hip. Fluoroscopy time: 10 seconds IMPRESSION: As above.
--- NOTE | 2017-06-24 13:34 | RAD ---
INDICATION: Status post prosthetic left hip reduction Comparison: Radiograph acquired at 0958 hours TECHNIQUE: An AP view of the pelvis was obtained. FINDINGS: The left hip prosthesis is anatomically aligned in the AP projection. There is no radiographically apparent fracture. IMPRESSION: Interval reduction of dislocated left prosthetic hip.
--- NOTE | 2017-06-25 09:46 | OP ---
DATE OF OPERATION: 06/24/17 - LOCATED WITHIN [facility] DATE OF : 50 SURGEON: Konrad Nelson MD CHAINSTITCH ELASTIC ATTACHER: RUBY Sheldon. Physician assistant warehouse manager was required for the length of the procedure for positioning, countertraction. ANESTHESIOLOGIST: Kennedy Santiago MD ANESTHESIA: General anesthesia with LMA. PRE-OP DIAGNOSES: 1. Recurrent left hip arthroplasty dislocation. 2. Status post left hip hemiarthroplasty, 05/05/17. 3. Status post prior closed relocation, left hip arthroplasty on 06/16/17. POST-OP DIAGNOSES: 1. Recurrent left hip arthroplasty dislocation. 2. Status post left hip hemiarthroplasty, 05/05/17. 3. Status post prior closed relocation, left hip arthroplasty on 06/16/17. OPERATIVE PROCEDURE: Closed relocation, left hip hemiarthroplasty. INDICATIONS: The patient is a 67-year-old woman status post 05/05/17 left hip bipolar hemiarthroplasty done by my colleague, Dr. Florin Valero, for a displaced left femoral neck fracture. 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 She was closed relocated in the operating room by Dr. Galeana. The patient had been using a knee immobilizer during the daytime subsequently, but not at night. Last night or early this morning, the patient was sleeping without the knee immobilizer. She dislocated in her sleep and woke up approximately 8 a.m. in immense pain about the left hip. The patient was brought into the emergency department at [facility] [place]. Radiographs showed a dislocated hip hemiarthroplasty. ANTIBIOTICS: None. IV FLUIDS: Approximately, 1000 cc crystalloid. SPECIMEN: None. IMPLANTS: None. COMPLICATIONS: None. ESTIMATED BLOOD LOSS: 0 cc. DESCRIPTION OF PROCEDURE: In the emergency department, I obtained a written consent from the patient. I also marked the operative extremity. The patient was brought to preoperative holding and then to the operating room. Surgical time-out was performed. The patient was sedated and general anesthesia was induced. The patient was relaxed. Traction, countertraction, and reduction maneuver was used to easily relocate the hip, on the first attempt. C-arm was brought in and AP and frog-leg lateral images confirmed a located hip arthroplasty with no fracture. The patient was awakened, lightened of anesthesia, and taken to the PACU. DISPOSITION: The patient had a low AP pelvis x-ray view obtained in the PACU for future planning. She will be discharged home when she meets appropriate discharge criteria. As she was doing preoperatively, she will take Motrin as needed for discomfort. A knee immobilizer had been placed on the patient's left knee intraoperatively. She will be under instructions to wear this knee immobilizer both in the daytime and the nighttime when sleeping. She will also follow posterior hip precautions. The patient is scheduled to meet in the office with one of my colleagues, Dr. Beverly, in 5 days. She will attend that appointment as previously scheduled. I will make Dr. Valero aware of our relocation in the operating room today. [id number]/[facility] #: [id number] NEELIMA
== END 2017-06-24 11:55 | disposition home or self-care (01) ==
LOC: ED 09:35 → OR 11:55
PROVIDERS: ATTEND Orthopaedic Surgery
DX: T84.021A Dislocation of internal left hip prosthesis, initial encounter (principal); M25.552 Pain in left hip; I10 Essential (primary) hypertension; E78.00 Pure hypercholesterolemia, unspecified; Y79.2 Prosthetic and other implants, materials and accessory orthopedic devices associated with adverse incidents; Y92.003 Bedroom of unspecified non-institutional (private) residence as the place of occurrence of the external cause; F41.9 Anxiety disorder, unspecified; E78.5 Hyperlipidemia, unspecified
CPT/HCPCS: 72170; 76000; 99284; J0330; J1100; J2250; J2270; J2405; J2704

== ENCOUNTER 2017-07-20 10:56 | Inpatient (IN) | payer MEDICARE ==
--- NOTE | 2017-07-03 08:16 | HP ---
HISTORY AND PHYSICAL: DATE OF ADMISSION/SURGERY: 07/20/17 DATE OF OFFICE VISIT: 06/29/17 SURGEON: Kassi Beverly MD * (DICTATED BY RUBY OCAMPO) PROCEDURE: Left revision total hip arthroplasty. CHIEF COMPLAINT: Left hip pain. HISTORY OF PRESENT ILLNESS: Ms. Guerrier is a 67-year-old female who fractured her left hip and underwent a left hip hemiarthroplasty with Dr. Valero. She has had 2 subsequent dislocations that were reduced, one by Dr. Galeana and two by Dr. Nelson. She is currently in an immobilizer and using a walker to dry cleaner helper with ambulation. She is here today to discuss her revision surgery. PAST MEDICAL HISTORY: Hypertension and GERD. PAST SURGICAL HISTORY: Left hip hemiarthroplasty, closed reduction left hip x2 , hysterectomy, and left shoulder surgery, unknown. CURRENT MEDICATIONS: 1. Spironolactone. 2. Xanax. 3. Losartan potassium 100 mg daily. 4. Omeprazole 40 mg daily. ALLERGIES: BENICAR, ALTACE, and TOPROL. FAMILY HISTORY: Stroke and colon cancer. SOCIAL HISTORY: She is a 67-year-old female. She lives with her son. She does not smoke, use drugs, alcohol. REVIEW OF SYSTEMS: A complete 14-point review of systems was reviewed with the patient. It was positive for GERD. PHYSICAL EXAMINATION GENERAL: She is well developed, well nourished, in no acute distress. VITAL SIGNS: She stands 5 feet 4 inches tall, weighs 164 pounds, her blood pressure is 140/88, her heart rate is 74. HEENT: Normocephalic, atraumatic. NECK: Supple. No palpable lymph nodes. PULMONARY: Lungs are clear to auscultation bilaterally. CARDIO: Regular rate and rhythm. Strong S1, S2. ABDOMEN: Soft, nontender, nondistended. NEUROLOGICAL: She is alert and oriented x3. Cranial nerves II through XII are intact. MUSCULOSKELETAL: Left lower extremity, the skin is intact. There are no open wounds or abrasions. The incision is well healed. She is currently in an immobilizer. She has 2+ dorsalis pedis pulses, intact sensation. She is able to ankle dorsiflex and plantarflex. She is ambulating with aid of a walker in an immobilizer at all times. ASSESSMENT AND PLAN: Ms. Guerrier is a 67-year-old female status post left hip hemiarthroplasty with 2 dislocations. She has elected to proceed with left revision total hip arthroplasty with Dr. Beverly. Dr. Beverly discussed the risks and benefits of the surgery at today's visit. All of her questions were answered. The surgery is scheduled for 07/20/17. The patient will follow up in 2 weeks after the surgery with Dr. Beverly. RUBY OCAMPO [id number]/[facility] #: [id number] MTDD
[~2017-07-20 10:56] MED LIST: Buffered Lidocaine 0.9% SYRIN* 5 ML/SYR SYRINGE INTRADERM ONE
[2017-07-20] MEDS ORDERED: Buffered Lidocaine 0.9% SYRIN* 5 ML/SYR SYRINGE ONE (11:01)
[2017-07-20] MEDS ORDERED: ceFAZolin 2 GM PREMIX (*) 2 GM/50 ML BAG IVPB ONE (11:01)
[2017-07-20] MEDS ORDERED: Scopolamine 1.5 mg* PATCH ONE (11:51)
[2017-07-20] MEDS ORDERED: Midazolam* 1 MG/ML 5 ML VIAL (5 MG) ONE (12:19)
[2017-07-20] MEDS ORDERED: Atracurium* 10 MG/ML 10 ML VIAL ONE (12:19)
[2017-07-20] MEDS ORDERED: fentaNYL* 50 MCG/ML 2 ML VIAL (100 MCG VIAL) ONE ×2 (12:19→16:17)
[2017-07-20] MEDS ORDERED: Propofol* 10 MG/ML 20 ML BTL IV PUSH ONE (12:19)
[2017-07-20] MEDS ORDERED: Dexamethasone IV* 4 MG/ML 1 ML (4 MG) ONE (12:21)
[2017-07-20] MEDS ORDERED: EPHEDrine (Pressors)* 50 MG/ML VIAL ONE (14:20)
[2017-07-20] MEDS ORDERED: Phenylephrine INJ* 10 MG/ML 1 ML VIAL (10 MG) ONE (14:20)
[2017-07-20] MEDS ORDERED: Morphine INJ* 2 MG/ML 1 ML CARPUJECT IV PRN (14:38)
[2017-07-20] MEDS ORDERED: Ondansetron INJ* 2 MG/ML VIAL IV PRN (14:38)
[2017-07-20] MEDS ORDERED: oxyCODONE/Acetamin 5/325 MG* TAB PO PRN (14:38)
[2017-07-20] MEDS ORDERED: DiMENhydriNATE IV* 50 MG/ML VIAL IV PUSH PRN (14:38)
[2017-07-20] MEDS ORDERED: HYDROcodone/ACETAMIN 5-325 MG* 1 TAB PO PRN (14:38)
[2017-07-20] MEDS ORDERED: Naloxone* 0.4 MG/ML 1 ML VIAL IV PRN (14:38)
[2017-07-20] MEDS ORDERED: Bupivacaine 0.5%* 50 ML VIAL ONE (15:33)
[2017-07-20] MEDS ORDERED: Glycopyrrolate IV* 0.2 MG/ML 1 ML VIAL ONE (15:45)
[2017-07-20] MEDS ORDERED: Neostigmine Methylsulfate* 1 MG/ML 10 ML VIAL (1 mg/ml) ONE (15:45)
[2017-07-20] MEDS ORDERED: Magnesium Hydroxide LIQ* 30 ML UDC PO PRN (16:05)
[2017-07-20] MEDS ORDERED: Bisacodyl SUPP* 10 MG SUPP PR PRN (16:05)
[2017-07-20] MEDS ORDERED: Morphine VIAL* 4 MG/ML VIAL (1 ml vial) IV PRN (16:05)
[2017-07-20] MEDS ORDERED: diPHENhydraMINE IV* 50 MG/ML 1 ml VIAL (BENADRYL) IV PRN (16:05)
[2017-07-20] MEDS ORDERED: Polyethylene Glycol 3350* 17 GM PACKET PO PRN (16:05)
[2017-07-20] MEDS ORDERED: Cyclobenzaprine TAB* 10 MG PO PRN (16:05)
[2017-07-20] MEDS ORDERED: Ondansetron INJ* 2 MG/ML VIAL ONE (16:06)
--- NOTE | 2017-07-20 16:07 | RAD ---
Indication: Revision LEFT total hip arthroplasty. Comparison: June 29, 2017 Technique: RIGHT lateral decubitus AP pelvis and LEFT hip 1436 hours Report: Normal alignment of the LEFT total hip replacement in the AP projection. No periprosthetic fracture evident. Overlying open surgical wound. IMPRESSION: Intraoperative control film.
[2017-07-20] MEDS ORDERED: HYDROmorphone TAB* 2 MG PO PRN (16:14)
[2017-07-20] MEDS: fentaNYL* 50 MCG/ML 2 ML VIAL (100 MCG VIAL) IV PRN ×3 (16:21→16:43)
[2017-07-20] MEDS ORDERED: Warfarin TAB(*) 6 MG PO ONE (17:00)
--- NOTE | 2017-07-20 17:02 | RAD ---
Indication: Postop LEFT hip prosthesis revision. Comparison: June 29, 2017 Technique: Low AP pelvis and proximal femurs, AP and crosstable lateral views LEFT hip. Report: LEFT total hip prosthesis in place with normal alignment. Negative for periprosthetic fracture. Overlying soft tissue edema and subcutaneous emphysema. IMPRESSION: Unremarkable immediate postop appearance following LEFT hip prosthesis revision.
[2017-07-20] MEDS: Morphine TAB Extended Release (*) 30 MG TAB.ER PO SCH (17:38)
--- NOTE | 2017-07-20 19:27 | CONS ---
CC: Dr. Madhavi Guzman; Dr. Beverly * CONSULTATION REPORT: DATE OF CONSULT: 07/20/17 PRIMARY CARE PROVIDER: Dr. Madhavi Guzman. ORTHOPEDIC SURGEON: Dr. Beverly. HEALTHCARE PROXY: Son, Kwaku. CODE STATUS: Full. SOURCE OF INFORMATION: History obtained from interview of patient, review of past medical records. RELIABILITY: Good. SERVICE REQUESTING CONSULTATION: Orthopedic surgery. REASON FOR CONSULTATION: Left hip revision. HISTORY OF PRESENT ILLNESS: This is a 67-year-old female with past medical history including hypertension, GERD and anxiety who previously had a left hip fracture and underwent a left hip hemiarthroplasty with subsequent dislocations that were reduced. She is currently utilizing an immobilizer and a walker to help with ambulation, status post left hip revision today with Dr. Beverly, reportedly without complications. She was seen in the PACU. She was wide awake. She noted to have 6/10 pain, however, seemed relatively well controlled. She noted that now she is not ill prior to presentation. She has had no recent fevers, no shortness of breath, no chest pain. She has been eating and drinking well. She denied any or GI symptoms. Her medications were reviewed and she has been taking them as prescribed. PAST MEDICAL HISTORY: Hypertension, GERD, and anxiety. MEDICATIONS: Reviewed. 1. Losartan 100 mg daily. 2. Spironolactone 25 mg daily. 3. Potassium 270 mg in the morning. 4. Prilosec 40 mg in the morning. 5. Methylsulfonylmethane 1000 mg in the morning. 6. Ibuprofen 600 mg as needed. 7. Xanax 0.25 mg twice daily as needed. ALLERGIES: METOPROLOL, OLMESARTAN, RAMIPRIL, FENTANYL, TRAMADOL and NARCOTICS, which cause pruritus. FAMILY HISTORY: Father with CVA or intracranial hemorrhage, history of colon cancer. SOCIAL HISTORY: Denies illicits, tobacco, alcohol. Lives with her son. REVIEW OF SYSTEMS: Pain in her left hip, 6/10, otherwise all other systems negative. PHYSICAL EXAM: Vitals in the PACU: 129/79, heart rate 100 beats per minute, she is 98% on 2 L, T-max is 98. Lying flat in bed. Legs immobilized. Interactive, pleasant. No apparent distress. Oropharynx is clear. She has moderately dry mucus membranes. Sclerae are anicteric. She has a regular rate and rhythm without murmurs, rubs or gallops. Her lungs are clear to auscultation auscultation anteriorly. Her abdomen is soft, nontender, nondistended. Her extremities are warm and well-perfused with positive pulses distally. She is alert and oriented x3. Cranial nerves are intact. DIAGNOSTIC STUDIES/LAB DATA: No laboratory data to review from today. Last known hemoglobin 14.4 on July 09. ASSESSMENT AND PLAN: This is a 67-year-old female, postop day 0, left hip revision with a past medical history of high blood pressure, gastroesophageal reflux disease and anxiety, who we have been asked to consult on. 1. Postop day 0, left hip reversion, care per primary team. I note she will be anticoagulated with Coumadin and enoxaparin. 2. Hypertension. Continue Aldactone and losartan, as have already been ordered. I have placed hold parameters to hold for systolic blood pressure less than 100 and diastolic blood pressure less than 60. 3. Gastroesophageal reflux disease. Continue omeprazole as ordered. 4. Anxiety. Continue Xanax p.r.n. as ordered. She typically takes 30-days supply over 2 months. 5. DVT prophylaxis as indicated by Lovenox and Coumadin. Thank you for involving us in the care of this patient. We will sign off for now, do not hesitate to call with additional questions, page [phone]. [id number]/[facility] #: [id number] NEELIMA
[2017-07-20] MEDS: oxyCODONE/Acetamin 5/325 MG* TAB PO PRN (19:38)
[2017-07-20] MEDS: Docusate CAP* 100 MG PO SCH (20:27)
[2017-07-20] MEDS: Magnesium Hydroxide LIQ* 30 ML UDC PO SCH (20:27)
[2017-07-20] MEDS: ceFAZolin 1 GM in Dextrose (*) 1 GM/50 ML BAG IVPB SCH (20:29)
[2017-07-20] MEDS: Ondansetron INJ* 2 MG/ML VIAL IV PRN (21:42)
--- NOTE | 2017-07-21 01:37 | OP ---
OPERATIVE REPORT: DATE OF OPERATION: 07/20/17 DATE OF : 50 ATTENDING SURGEON: Kassi Beverly MD AIR COMMODORE: RUBY Avila Ms. did help throughout the procedure with preparation of the leg, wound retraction, manipulation of the hip, and wound closure. ANESTHESIOLOGIST: Dr. Luna. ANESTHESIA: General. 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 PROCEDURE PERFORMED: Revision left total hip arthroplasty with placement of an acetabular component, revision of the femoral head to an MDM component, posterior capsular repair. HARDWARE USED: This is uncemented Anali total hip hardware. For the cup, a Tritanium 50D, cluster hole shell. Three screws were used. These were Torx 6.5 cancellous bone screws of length 16, 20, and 20. For the liner, an MDM cementless 38D was used. For the femoral head, a 22.2 +3 L-Fit V40 femoral head and the MDM X3 liner insert was 22.2/38/38D. COMPLICATIONS: None. ESTIMATED BLOOD LOSS: 200 cc. SPECIMENS: Multiple culture swabs sent to microbiology for cultures and sensitivity. Acetabular reaming sent to pathology. BRIEF HISTORY/INDICATIONS: Ms. Guerrier is a 67-year-old female who initially had trauma and sustained a left femoral neck fracture. This was treated operatively with left hip hemiarthroplasty by Dr. Valero. Postoperatively, the patient's hemiarthroplasty suffered from recurrent instability. This occurred twice and the second time was while she was in bed. The exact etiology of the recurrent instability was unclear after reviewing radiographs, and the decision was made to convert her with revision left total hip arthroplasty. Informed consent was obtained from the patient. She understood the risks of the procedure included, but were not limited to bleeding, infection, damage to nearby structures, continued pain, need for further surgery, continued dislocation, intraoperative fracture, nerve palsy, hardware failure or loosening , leg length discrepancy, stroke, heart attack, blood clot and . She wished to proceed. INTRAOPERATIVE FINDINGS: Intraoperatively, the patient's femoral stem was found to be stable with an appropriate amount of anteversion. There was bone ongrowth and there was no visible loosening of the stem. The posterior soft tissue had obvious trauma and the soft tissue repair had been broken by recurrent instability. There was no visible intact posterior soft tissue capsule at the hip joint. The patient's acetabulum was noted to be dysplastic, shallow and retroverted with a minimal posterior wall. This was likely the reason for recurrent instability. DESCRIPTION OF PROCEDURE: Ms. Guerrier was identified in the preanesthesia unit. Her left lower extremity was marked as the correct operative site. Informed consent was signed and placed in the chart. Patient was taken to the operating room and placed under general anesthesia. A Will catheter was placed. The patient was placed in the right lateral decubitus position on the pegboard. All bony prominences were well padded. Left lower extremity was prepped and draped in the usual sterile fashion. Preop time-out was made to correctly identify the patient, side, and site. Appropriate perioperative antibiotics were given within 1 hour of incision. The patient's prior hip incision was used. A 10-blade was used to dissect through the subcutaneous fat. Electrocautery was used to dissect down to the subcutaneous fat in the lateral fascia layer. Lateral fascia layer was incised in line with the skin incision. Soft tissue along the lateral fascia layer was carefully lifted both anteriorly and posteriorly to free up the fascia and allow for better exposure. A Charnley retractor was placed. Posterior aspect of the hip joint was visible. The posterior soft tissue capsule was not intact and had obviously been broken by recurrent instability and dislocations posteriorly. The hip was carefully dislocated. The femoral head, bipolar head was removed using the Reis elevator and mallet. No damage to the neck was noted. Electrocautery was used as well as rongeur to meticulously clean soft tissue and fibrous tissue around the neck and shoulder of the femoral component. Back flap was used to test the stability of the femoral component. There was no obvious loosening of the component. There was good bone growth onto the implant. The implant was in satisfactory position with the appropriate amount of anteversion. At this point, decision was made to leave the femoral stem. Careful soft tissue dissection just superior and anterior to the acetabulum was performed and the femur was carefully retracted anteriorly. Any remaining labrum was removed from the acetabular rim. The acetabulum was noted to be significantly dysplastic and retroverted. The acetabulum was sequentially reamed up to a size 49. A 49 reamer had bleeding subchondral bone bed. Posterior wall was noted to be minimal. Trial had satisfactory fit. The final implant chosen was a Tritanium cluster hole shell 50D. This was impacted into the acetabulum with some added anteversion and closed down with the abduction angle to improve stability of the hip joint. The cup was noted to be stable. Three screws were placed in the cluster hole and these were length 16, 20, and 20 mm. Liner chosen was an MDM cement with liner 38D. This was carefully impacted into the acetabular cut. The shell was noted to be stable. Next, the MDM femoral head trials were placed. A +0 trial was reduced and then hip was taken through a range of motion. The hip was stable in all positions. There was some increased shuck and soft tissue laxity, therefore a +3 femoral head was chosen. The hip was reduced and taken through a range of motion and had improved stability. The hip was stable in all positions. There was satisfactory soft tissue tension and appropriate leg lengths. The hip was copiously irrigated with sterile saline. The MDM head was prepared using a 22.2/38D liner with a 22.2 +3 femoral head. The head was impacted onto the femoral neck without difficulty. This was stable. The hip was reduced and taken through a range of motion. The hip was stable in all positions. The hip was once again copiously irrigated with sterile saline. A meticulous posterior capsule soft tissue closure was then performed. Trochanteric drill holes were used as well as additional #5 Ethibond suture using a free needle. Stable posterior soft tissue capsule was repaired to the posterolateral femur. The lateral fascial layer was closed using interrupted #1 Vicryl. The rest of the incision was closed in a layered fashion using 0 and 2-0 Vicryl. Skin was closed using running 3-0 nylon suture. Sterile Xeroform, 4x4s, and Webril were used to cover the incision. The patient's anesthesia was reversed without difficulty. She was taken to the PACU in stable condition. She is neurovascularly intact. Intended weightbearing will be weightbearing as tolerated with posterior hip precautions. [id number]/[facility] #: [id number] [facility]ES HOSPITALJorge
[2017-07-21] MEDS: Acetaminophen TAB* 325 MG PO PRN (03:32)
[2017-07-21] MEDS: Morphine TAB Extended Release (*) 30 MG TAB.ER PO SCH ×2 (04:49→17:49)
[2017-07-21] MEDS: ceFAZolin 1 GM in Dextrose (*) 1 GM/50 ML BAG IVPB SCH ×2 (04:50→12:50)
[2017-07-21 06:21] LABS: Hematocrit 31 % (35-47); Mean Platelet Volume 8.7 um3 (7.4-10.4); Platelet Count 287 10^3/ul (150-450)
[2017-07-21 06:30] LABS: INR 1.06 (0.77-1.02)
[2017-07-21 06:35] LABS: EGFR Non-African American 51.7 (>60)
[2017-07-21] MEDS: Spironolactone TAB* 25 MG PO SCH (08:12)
[2017-07-21] MEDS: Losartan TAB* 25 MG PO SCH (08:12)
[2017-07-21] MEDS: Docusate CAP* 100 MG PO SCH ×2 (08:46→20:49)
[2017-07-21] MEDS: Omeprazole CAP* 20 MG PO SCH (08:46)
[2017-07-21] MEDS: oxyCODONE/Acetamin 5/325 MG* TAB PO PRN ×3 (08:47→20:49)
[2017-07-21] MEDS: Magnesium Hydroxide LIQ* 30 ML UDC PO SCH ×2 (08:47→20:49)
[2017-07-21] MEDS: POTASSIUM GLUCONATE PO SCH (08:48)
[2017-07-21] MEDS ORDERED: Losartan TAB* 25 MG PO SCH (09:00)
[2017-07-21] MEDS ORDERED: Spironolactone TAB* 25 MG PO SCH (09:00)
--- NOTE | 2017-07-21 09:27 | PN ---
Progress Note - Progress Note Date of Service: 07/21/17 SOAP: Subjective: Pt. is alert, pain controlled with 1 oxycodone tablet. Objective: LLE - dressing c/d/i. thigh soft, distally nvi. Vital Signs: Temp Pulse Resp BP Pulse Ox 97.8 F 88 16 102/54 97 07/21/17 07:30 07/21/17 07:30 07/21/17 08:47 07/21/17 07:30 07/21/17 07:30 Laboratory Results - last 24 hr 07/21/17 07/21/17 07/21/17 05:51 05:51 05:51 Hgb 10.0 L Hct 31 L Plt Count 287 MPV 8.7 INR (Anticoag Therapy) 1.06 H Sodium 139 Potassium 4.9 Chloride 103 Carbon Dioxide 29 Anion Gap 7 BUN 26 H Creatinine 1.06 H Est GFR ( Amer) 66.5 Est GFR (Non-Af Amer) 51.7 BUN/Creatinine Ratio 24.5 H Glucose 124 H Calcium 9.3 Assessment: 67 yo F pod 1 s/p revision LTHA for recurrent instability Plan: strict post hip precautions knee immobilizer on in bed, may remove when oob/awake/PT pt/ot plan d/c for tomorrow
[2017-07-21] MEDS: Enoxaparin(*) 30 MG/0.3 ML SYR SUBCUT SCH (12:52)
[2017-07-21] MEDS ORDERED: Warfarin TAB(*) 6 MG PO SCH (18:00)
[2017-07-21] MEDS: Calcium Carbonate CHEW TAB* 500 MG (TUMS) PO PRN (22:01)
[2017-07-22] MEDS: Calcium Carbonate CHEW TAB* 500 MG (TUMS) PO PRN ×2 (04:11→17:39)
[2017-07-22] MEDS: Ondansetron INJ* 2 MG/ML VIAL IV PRN ×2 (04:25→20:37)
[2017-07-22 05:18] LABS: Hematocrit 29 % (35-47); Hemoglobin 9.8 g/dl (12.0-16.0); Mean Platelet Volume 8.3 um3 (7.4-10.4); Platelet Count 272 10^3/ul (150-450)
[2017-07-22] MEDS: Morphine TAB Extended Release (*) 30 MG TAB.ER PO SCH ×2 (05:22→17:36)
[2017-07-22 05:25] LABS: INR 1.87 (0.77-1.02)
[2017-07-22] MEDS: Losartan TAB* 25 MG PO SCH (07:42)
[2017-07-22] MEDS: Spironolactone TAB* 25 MG PO SCH (07:42)
[2017-07-22] MEDS: Magnesium Hydroxide LIQ* 30 ML UDC PO SCH ×2 (08:44→20:32)
[2017-07-22] MEDS: Docusate CAP* 100 MG PO SCH ×2 (08:45→20:32)
[2017-07-22] MEDS: Omeprazole CAP* 20 MG PO SCH (08:45)
[2017-07-22] MEDS: oxyCODONE/Acetamin 5/325 MG* TAB PO PRN ×2 (08:45→13:04)
[2017-07-22] MEDS: POTASSIUM GLUCONATE PO SCH (08:46)
--- NOTE | 2017-07-22 10:19 | PN ---
Progress Note - Progress Note Date of Service: 07/22/17 SOAP: Subjective: [Pt doing well. Pain 05/19. Controlled well with po meds. Denies CP, SOB, N/V , dizziness. Reports no one availabe today at home to help her be discharged. Her son will be available tomorrow.] Objective: [A and O x 3, NAD. Seated in chair. L hip dressing changed. Incision benign, No drainage or erythema. Knee immobilizer in place. Calf soft, NT. Distal NV function intact. Vital Signs: Temp Pulse Resp BP Pulse Ox 99.0 F 96 18 99/47 93 07/22/17 07:28 07/22/17 07:28 07/22/17 08:45 07/22/17 07:28 07/22/17 07:28 Laboratory Results - last 24 hr 07/22/17 07/22/17 05:09 05:09 Hgb 9.8 L Hct 29 L Plt Count 272 MPV 8.3 INR (Anticoag Therapy) 1.87 H ] Assessment: [67 yo female s/p L DERRICK revision POD #2] Plan: [Strict posterior hip precautions Knee immobilizer on while in bed, may take off for PT and ambulation Coumadin 4 mg today Will be discharged on aspirin 325 mg bid for DVT prophylaxis Plan for D/C tomorrow F/U with Dr. Beverly 14 days post op]
[2017-07-22] MEDS: Enoxaparin(*) 30 MG/0.3 ML SYR SUBCUT SCH (12:07)
[2017-07-22] MEDS ORDERED: Warfarin TAB(*) 4 MG PO ONE (17:00)
[2017-07-23] MEDS: Ondansetron TAB* 4 MG PO PRN ×2 (00:48→08:47)
[2017-07-23] MEDS: Morphine TAB Extended Release (*) 30 MG TAB.ER PO SCH (05:04)
[2017-07-23 05:38] LABS: Hematocrit 28 % (35-47); Hemoglobin 9.6 g/dl (12.0-16.0); Mean Platelet Volume 8.6 um3 (7.4-10.4); Platelet Count 254 10^3/ul (150-450)
[2017-07-23 05:41] LABS: INR 2.95 (0.77-1.02)
--- NOTE | 2017-07-23 08:17 | PN ---
Progress Note - Progress Note Date of Service: 07/23/17 SOAP: Subjective: 67 y/o female s/p revision L DERRICK by DR. Beverly 07/20. Patient with Nausea/ vomiting this AM. Pain under control with long acting medication, no short acting meds recently. Objective: General- Well appearing, NAD, AO, confused at times after taking flexeril, not noted this AM prior to medication. MSK- LLE- DF/PF +, PT 2+, dressing removed, incision c/d/i, sutures in place, no drainage noted, no induration. new dressing placed. Vital Signs Temp 100.1 F 07/23/17 08:04 Pulse 99 07/23/17 08:04 Resp 18 07/23/17 10:04 BP 116/57 07/23/17 08:04 Pulse Ox 94 07/23/17 08:04 Intake & Output 07/22/17 07/23/17 07/23/17 18:59 06:59 18:59 Intake Total 1040 1000 0 Output Total 600 850 Balance 440 150 0 Intake: Oral 1040 1000 0 Output: Urine 600 850 Other: # Bowel Movements 0 Assessment: Stable 67 y/o female s/p revision L DERRICK by DR. Beverly 07/20. Plan: - DVT prophylaxis- lovenox in house, ASA 325mg BID at home x 1 month - Continue PT/ OT - Follow up with Dr. Beverly within 10-14 days - H&H - stable - post-op IV ABX - completed - Possible D/c today, however due to n/v, confusion likely tomorrow. Acetaminophen (Tylenol Tab*) 650 mg PO Q4H PRN PRN Reason: PAIN OR TEMPERATURE Last Admin: 07/21/17 03:32 Dose: 650 mg Hydrocodone Bitart/Acetaminophen ([place] 5-325 Tab*) 1 tab PO Q3H PRN PRN Reason: PAIN - MODERATE Alprazolam (Xanax Tab*) 0.25 mg PO BID PRN PRN Reason: ANXIETY Bisacodyl (Dulcolax Supp*) 10 mg TX DAILY PRN PRN Reason: constipation Calcium Carbonate (Tums*) 500 mg PO Q4H PRN PRN Reason: INDIGESTION Last Admin: 07/22/17 17:39 Dose: 500 mg Cyclobenzaprine HCl (Flexeril Tab*) 10 mg PO TID PRN PRN Reason: SPASMS Last Admin: 07/23/17 07:39 Dose: 10 mg Diphenhydramine HCl (Benadryl Iv*) 12.5 mg IV Q6H PRN PRN Reason: PRURITIS Docusate Sodium (Colace Cap*) 100 mg PO BID [facility] Last Admin: 07/23/17 09:27 Dose: 100 mg Enoxaparin Sodium (Lovenox(*)) 30 mg SUBCUT Q24H [facility] Last Admin: 07/22/17 12:07 Dose: 30 mg Hydromorphone HCl (Dilaudid Tab*) 2 mg PO Q6H PRN PRN Reason: PAIN Lactated Ringer's (Lactated Ringers 1000 Ml Bag*) 1,000 mls @ 100 mls/hr IV PER RATE [facility] Last Admin: 07/21/17 03:18 Dose: 100 mls/hr Sodium Chloride (Ns 0.9% 1000 Ml*) 1,000 mls @ 0 mls/hr IV WIDE OPEN [facility] PRN Reason: Wide Open Last Admin: 07/23/17 10:03 Dose: 999 mls/hr Lactulose (Lactulose*) 30 ml PO Q6H PRN PRN Reason: constipation Losartan Potassium (Cozaar Tab*) 100 mg PO [facility] Last Admin: 07/23/17 09:27 Dose: 100 mg Magnesium Hydroxide (Milk Of Magnesia Liq*) 30 ml PO BID [facility] Last Admin: 07/23/17 09:27 Dose: 30 ml Magnesium Hydroxide (Milk Of Magnesia Liq*) 30 ml PO Q6H PRN PRN Reason: constipation Morphine Sulfate (Morphine Vial*) 2 mg IV Q2H PRN PRN Reason: PAIN Non-Formulary Medication (Potassium Gluconate [Potassium]) [facility] Last Admin: 07/23/17 09:28 Dose: Not Given Omeprazole (Prilosec Cap*) 40 mg PO [facility] Last Admin: 07/23/17 08:47 Dose: 40 mg Ondansetron HCl (Zofran Inj*) 4 mg IV Q6H PRN PRN Reason: nausea Last Admin: 07/22/17 20:37 Dose: 4 mg Ondansetron HCl (Zofran Tab*) 4 mg PO Q6H PRN PRN Reason: NAUSEA Last Admin: 07/23/17 08:47 Dose: 4 mg Pharmacy Profile Note (Coumadin Daily Reminder*) 1 note FOLLOW UP 1700 [facility] Last Admin: 07/22/17 17:37 Dose: 1 note Pharmacy Profile Note (Scopolamine Patch Remove*) 1 note PATCH OFF .AFTER 72 HOURS [facility] Polyethylene Glycol/Electrolytes (Miralax*) 17 gm PO DAILY PRN PRN Reason: Constipation Scopolamine (Transderm-Scop 1.5 Mg Patch*) 1 patch TRANSDERM Q72H [facility] Last Admin: 07/23/17 10:04 Dose: 1 patch Spironolactone (Aldactone Tab*) 25 mg PO QAM [facility] Last Admin: 07/23/17 09:27 Dose: 25 mg
[2017-07-23] MEDS: Omeprazole CAP* 20 MG PO SCH (08:47)
[2017-07-23] MEDS: Losartan TAB* 25 MG PO SCH (09:27)
[2017-07-23] MEDS: Docusate CAP* 100 MG PO SCH ×2 (09:27→20:14)
[2017-07-23] MEDS: Spironolactone TAB* 25 MG PO SCH (09:27)
[2017-07-23] MEDS: Magnesium Hydroxide LIQ* 30 ML UDC PO SCH ×2 (09:27→20:14)
[2017-07-23] MEDS: POTASSIUM GLUCONATE PO SCH (09:28)
[2017-07-23] MEDS ORDERED: NS 0.9% 1000 ML* 1,000 ML IV SCH (09:30)
[2017-07-23] MEDS ORDERED: Scopolamine PATCH Remove* 1 NOTE MISC PATCH OFF SCH (10:00)
[2017-07-23] MEDS ORDERED: Scopolamine 1.5 mg* PATCH TRANSDERM SCH (10:00)
[2017-07-23] MEDS ORDERED: Cyclobenzaprine TAB* 10 MG PO PRN (11:29)
--- NOTE | 2017-07-23 12:08 | DS ---
Discharge Summary Date of Admission: 07/20/2017 Date of Discharge: 07/23/2017 Provider: Dr. Bharath Beverly Principle Diagnosis: Unstable left hip hemiarthroplasty with multiple dislocations Secondary Diagnoses: See H&P Principle procedure: Planned revision of left hip hemiarthroplasty to left total hip replacement. Consultations: Physical therapy, occupational therapy, medicine. HPI: Refer to H&P Hospital Course: The patient was admitted on 07/20/2017 and underwent a conversion of a left total hip hemiarthroplasty to a left total hip arthroplasty due to multiple dislocations. She tolerated the procedure well and there were no complications. The patient had general anesthesia and was quite comfortable in the immediate postoperative period. On POD#1 the patients H&H was 10/31. POD #2 Dressing was CDI, she was neurovascularly intact with good sensation distal to the left hip. She could demonstrate dorsi and plantar flexion with good strength. Participation in physical and occupational therapy was begun. Pain management was percocet. On POD#2 the urinary catheter was discontinued and the patient was able to void spontaneously. The dressing was changed and the wound was found to be benign with minimal drainage and erythema. Vital signs were stable and the patient was afebrile. POD#3 bowel and bladder had normalized and the patient was cleared by physical therapy for safe discharge to home. She had episodes of nausea/ vomiting that were helped with a scopolamine patch, and her pain medications were adjusted. The patient declined VNS and will do outpatient physical therapy. She will continue with the exercises learned with physical therapy and arrangements were made for visiting home physical therapy as well. At discharge the H&H was 9.6/ 28 and vital signs were stable. The patient was discharged with DVT prophylaxis with Aspirin 325mg BID x 1 month. The patient will resume the home medications as indicated in the discharge instructions. Lucrecia and/or sutures will be removed in 10-14 days at her post-op visit with Dr. Beverly. Acetaminophen (Tylenol Tab*) 650 mg PO Q4H PRN PRN Reason: PAIN OR TEMPERATURE Hydrocodone Bitart/Acetaminophen (Garrett 5-325 Tab*) 1 tab PO Q3H PRN PRN Reason: PAIN - MODERATE Alprazolam (Xanax Tab*) 0.25 mg PO BID PRN PRN Reason: ANXIETY Calcium Carbonate (Tums*) 500 mg PO Q4H PRN PRN Reason: INDIGESTION Cyclobenzaprine HCl (Flexeril Tab*) 5 mg PO TID PRN PRN Reason: SPASMS Docusate Sodium (Colace Cap*) 100 mg PO BID COUNTS INCLUDE 234 BEDS AT THE [facility] Last Admin: 07/23/17 09:27 Dose: 100 mg Hydromorphone HCl (Dilaudid Tab*) 2 mg PO Q6H PRN PRN Reason: PAIN Losartan Potassium (Cozaar Tab*) 100 mg PO [facility] Last Admin: 07/23/17 09:27 Dose: 100 mg Potassium Gluconate [Potassium]) 270 mg PO [facility] Last Admin: 07/23/17 09:28 Dose: Not Given Omeprazole (Prilosec Cap*) 40 mg PO [facility] Last Admin: 07/23/17 08:47 Dose: 40 mg Scopolamine (Transderm-Scop 1.5 Mg Patch*) 1 patch TRANSDERM Q72H COUNTS INCLUDE 234 BEDS AT THE [facility] Last Admin: 07/23/17 10:04 Dose: 1 patch Spironolactone (Aldactone Tab*) 25 mg PO [facility] Last Admin: 07/23/17 09:27 Dose: 25 mg Aspirin 325mg BID x 1 month PO Condition: Stable Disposition: Home with outpatient physical therapy Follow up: Patient will follow up with Dr. Beverly in 10-14 days post-op at [facility], call for appointment [phone]
[2017-07-23] MEDS: Enoxaparin(*) 30 MG/0.3 ML SYR SUBCUT SCH (12:23)
[2017-07-23] MEDS ORDERED: Diltiazem TAB* 30 MG PO SCH (13:00)
[2017-07-23 13:44] LABS: EGFR Non-African American 51.1 (>60)
[2017-07-23] MEDS ORDERED: Diltiazem IV* 5 MG/ML 5 ML VIAL (for loading dose/IV Push) (25 MG) IV SLOW PU ONE (14:00)
[2017-07-23] MEDS ORDERED: Diltiazem IV VIAL* 125 MG/25 ML VIAL IV PUSH ONE (14:00)
[2017-07-23] MEDS ORDERED: Naloxone* 0.4 MG/ML 1 ML VIAL ONE (14:23)
[2017-07-23] MEDS ORDERED: Diltiazem IV VIAL* 125 MG in NS 0.9% 100 ML* 100 ML IV SCH (14:30)
[2017-07-23] MEDS ORDERED: Diltiazem DRIP* 100 MG/100 ML ADDV.BAG IVPB SCH (15:00)
[2017-07-23] MEDS ORDERED: NS 0.9% 500 ML* 500 ML IV ONE (15:09)
--- NOTE | 2017-07-23 15:14 | RAD ---
INDICATION: Change in mental status COMPARISON: CT brain May 08, 2017 TECHNIQUE: Noncontrast axial source images were acquired from the skull base to the vertex. FINDINGS: Ventricles/sulci: The ventricles and cisterns are normal in size and configuration for age. Brain parenchyma: There is no focal parenchymal finding, evidence of intracranial mass, or intracranial mass effect. Intracranial hemorrhage:None. Extra-axial spaces: There are no abnormal extra axial fluid collections or evidence of extra-axial mass. Calvarium: There is no calvarial fracture or other calvarial abnormality. Scalp: There is no evidence of scalp or extracalvarial soft tissue abnormality. Paranasal sinuses/mastoid: The paranasal sinuses and mastoid air cells are clear. Other: None. IMPRESSION: No acute intracranial findings
[2017-07-23] MEDS ORDERED: Perflutren Lipid Microsphere* 3 ML VIAL ONE (15:37)
[2017-07-23] MEDS ORDERED: NS 0.9% IV ONE (15:49)
[2017-07-23] MEDS ORDERED: Amiodarone 150 MG IVPREMIX* 150 MG/100 ML BAG IV ONE (15:51)
[2017-07-23] MEDS ORDERED: Amiodarone 360 MG IVPREMIX* 360 MG/200 ML BAG IV ONE ×2 (15:52→22:14)
--- NOTE | 2017-07-23 16:12 | CONSULT ---
Consult Consult: Consultation Note Critical Care Requesting Physician: Dr Florin Guzman Reason for consult: rapid afib, suspected sepsis Limitations in history/physical: none, some confusion Date of consult: 07/23/2017 HPI: 67y F pmhx HTN, anxiety disorder, GERD; Patient had multiple dislocations of left hip hemiarthroplasty. She was brought in and scheduled and had a Left total hip arthroplasty done 07/20. Post op course uncomplicated, good surgical site. Noted to have some confusion on 07/22-07/23. Today she was planned to be discharged home but developed rapid Afib upto 160s, SLITTING MACHINE OPERATOR called and given Cardizem bolus for rate control, starting PO Cardizem also. Rate was not well controlled and due to Cardizem infusion to be started she was upgraded to the ICU for better rate control. Currently in bed, tmax 100.4, on Cardizem infusion 5mg/hr, HR 130-150s irreg. on RA, no resp distress. BP 90s systolic. She is awake, alert, appears a bit slow at times to answer but answering appropriately. Slower and a bit confused as per daughter at bedside also. Being given NS bolus at this time. She denies n/v/cp/sob. Left hip pain stable as per her and not worse. Some cramps in left leg only. She did walk yesterday and was doing well. No dysuria/ frequency. She had hyatt discontinued 2 days back by Ortho. No abd pain/ diarrhea. ROS: ROS limited due to confusion. PMHx: HTN, anxiety disorder, GERD PSHx: left hip hemiarthroplasty and then left hip total arthroplasty 07/2017 Family History: stroke, colon cancer Social History: Alcohol-no, Smoking-no, Drug use-no; lives with her son. Allergies: Allergies Allergy/AdvReac Type Severity Reaction Status Date / Time metoprolol [From Toprol XL] Allergy Unknown Verified 07/20/17 11:10 Reaction Details olmesartan [From Benicar] Allergy Unknown Verified 07/20/17 11:10 Reaction Details ramipril [From Altace] Allergy Unknown Verified 07/20/17 11:10 Reaction Details fentanyl AdvReac Severe Hallucinati Verified 07/20/17 11:10 ons tramadol AdvReac Severe Hallucinati Verified 07/20/17 11:10 ons narcotics AdvReac Severe Nausea And Uncoded 04/13/18 11:10 Vomiting Home Medications: Omeprazole CAP* [Prilosec CAP* 20 MG] 40 mg PO QAM 08/08/16 [History Confirmed 07/20/17] Losartan TAB* [Cozaar TAB*] 100 mg PO QAM 06/16/17 [History Confirmed 07/20/17] Methylsulfonylmethane [MSM] 1,000 mg PO QAM 06/16/17 [History Confirmed 07/20/17 ] Potassium Gluconate [Potassium] 270 mg PO QAM 06/16/17 [History Confirmed ] Spironolactone TAB* [Aldactone TAB*] 25 mg PO QAM 06/16/17 [History Confirmed ] ALPRAZolam TAB* [Xanax TAB*] 0.25 mg PO BID PRN 06/24/17 [History Confirmed ] Ibuprofen 600 mg PO DAILY PRN 07/09/17 [History Confirmed 07/20/17] Tele: rapid afib Vitals: last 97/ , HR 130s Vital Signs Temp 98.5 F 07/23/17 12:27 Pulse 143 07/23/17 15:20 Resp 24 07/23/17 15:20 BP 175/147 07/23/17 15:20 Pulse Ox 98 07/23/17 15:43 Intake & Output 07/22/17 07/23/17 07/23/17 18:59 06:59 18:59 Intake Total 1040 1000 1000 Output Total 600 850 Balance 118 098 4901 Intake: IV Fluids 1000 NS (0.9%) 1000 Oral 1040 1000 0 Output: Urine 600 850 Other: Estimated Void Medium # Bowel Movements 0 # Voids 2 O2/Vent: RA Infusions: NS bolus, Cardizem 5mg/hr Current Medications: Acetaminophen (Tylenol Tab*) 650 mg PO Q4H PRN PRN Reason: PAIN OR TEMPERATURE Last Admin: 07/21/17 03:32 Dose: 650 mg Hydrocodone Bitart/Acetaminophen ([place] 5-325 Tab*) 1 tab PO Q3H PRN PRN Reason: PAIN - MODERATE Alprazolam (Xanax Tab*) 0.25 mg PO BID PRN PRN Reason: ANXIETY Bisacodyl (Dulcolax Supp*) 10 mg MI DAILY PRN PRN Reason: constipation Calcium Carbonate (Tums*) 500 mg PO Q4H PRN PRN Reason: INDIGESTION Last Admin: 07/22/17 17:39 Dose: 500 mg Cyclobenzaprine HCl (Flexeril Tab*) 5 mg PO TID PRN PRN Reason: SPASMS Diphenhydramine HCl (Benadryl Iv*) 12.5 mg IV Q6H PRN PRN Reason: PRURITIS Docusate Sodium (Colace Cap*) 100 mg PO BID [facility] Last Admin: 07/23/17 09:27 Dose: 100 mg Enoxaparin Sodium (Lovenox(*)) 30 mg SUBCUT Q24H [facility] Last Admin: 07/23/17 12:23 Dose: 30 mg Hydromorphone HCl (Dilaudid Tab*) 2 mg PO Q6H PRN PRN Reason: PAIN Sodium Chloride (Ns 0.9% 1000 Ml*) 1,000 mls @ 0 mls/hr IV WIDE OPEN [facility] PRN Reason: Wide Open Last Admin: 07/23/17 10:03 Dose: 999 mls/hr Amiodarone HCl (Nexterone Drip*) 150 mg in 100 mls @ 600 mls/hr IV ONCE ONE Stop: 07/23/17 16:00 Sodium Chloride (Ns 0.9% 1000 Ml*) 1,000 mls @ 800 mls/hr IV ONCE ONE Stop: 07/23/17 17:03 Amiodarone HCl (Nexterone 360 Mg/200 Ml Ivpremix*) 360 mg in 200 mls @ 33.333 mls/hr IV ONCE ONE PRN Reason: 1 MG/MIN Stop: 07/23/17 21:51 Lactulose (Lactulose*) 30 ml PO Q6H PRN PRN Reason: constipation Magnesium Hydroxide (Milk Of Magnesia Liq*) 30 ml PO BID [facility] Last Admin: 07/23/17 09:27 Dose: 30 ml Magnesium Hydroxide (Milk Of Magnesia Liq*) 30 ml PO Q6H PRN PRN Reason: constipation Morphine Sulfate (Morphine Vial*) 2 mg IV Q2H PRN PRN Reason: PAIN Non-Formulary Medication (Potassium Gluconate [Potassium]) 270 mg PO QAM [facility] Last Admin: 07/23/17 09:28 Dose: Not Given Omeprazole (Prilosec Cap*) 40 mg PO QAM [facility] Last Admin: 07/23/17 08:47 Dose: 40 mg Ondansetron HCl (Zofran Inj*) 4 mg IV Q6H PRN PRN Reason: nausea Last Admin: 07/22/17 20:37 Dose: 4 mg Ondansetron HCl (Zofran Tab*) 4 mg PO Q6H PRN PRN Reason: NAUSEA Last Admin: 07/23/17 08:47 Dose: 4 mg Pharmacy Profile Note (Coumadin Daily Reminder*) 1 note FOLLOW UP 1700 [facility] Last Admin: 07/22/17 17:37 Dose: 1 note Polyethylene Glycol/Electrolytes (Miralax*) 17 gm PO DAILY PRN PRN Reason: Constipation Physical Exam: General: awake, alert, sluggish to answer at times, no distress, no diaphoresis Head: normocephalic, atraumatic HEENT: no pallor, no icterus, moist mucous membranes Neck: soft, supple, no jvd, no stridor CVS: tachycardic, irregular, no murmur Resp: bilateral air entry, no rhales, no wheeze, no rhonchi, no acc muscle use Abdomen: soft, nontender, nondistended, bowel sounds present Ext: pulses+, warm, no edema; left hip in immobilizer and without tenderness at hip much, legs appear to be warm and without swelling Skin: intact, no breakdown Neuro: awake, alert, orientedx2-3, moving all extremities, no gross focal deficit Labs: Laboratory Results - last 24 hr 07/23/17 07/23/17 07/23/17 05:08 05:08 13:19 Hgb 9.6 L Hct 28 L Plt Count 254 MPV 8.6 INR (Anticoag Therapy) 2.95 H Sodium 131 L D Potassium 4.0 Chloride 95 L Carbon Dioxide 27 Anion Gap 9 BUN 23 Creatinine 1.07 H Est GFR ( Amer) 65.8 Est GFR (Non-Af Amer) 51.1 BUN/Creatinine Ratio 21.5 H Glucose 96 Calcium 8.5 L Magnesium 2.2 Imaging: CT head 07/23 - no acute pathology Assessment: 67y F pmhx HTN, anxiety disorder, GERD; Patient had multiple dislocations of left hip hemiarthroplasty. She was brought in and scheduled and had a Left total hip arthroplasty done 07/20. Post op course uncomplicated, good surgical site. Noted to have some confusion on 07/22-07/23. Today she was planned to be discharged home but developed rapid Afib upto 160s, SLITTING MACHINE OPERATOR called and given Cardizem bolus for rate control, starting PO Cardizem also. Rate was not well controlled and due to Cardizem infusion to be started she was upgraded to the ICU for better rate control. Low grade temp, SBP 90s at times during afib. -New onset Atrial Fibrillation with rapid ventricular rate -Delirium -Hypotension -Low grade temp -s/p Left total hip arthroplasty 07/20 Plan: Neuro- confused but awake. CT brain negative 07/23. Does not appear to be narcotic related but will minimize/hold further narcotics. Knowing she has low grade temp and new onset afib, a possibility of infectious etiology or even hypoperfusion can be causing this mental status change. Metabolic encephelopathy ? neurochecks. fall prec. asp prec. CVS- New Rapid Afib, Lower BP with cardizem, change to Amio bolus/infusion. Cont IVF bolus, may need till sepsis ruled out. D/C cardizem for now. IVF infusion continued. Blood and urine culture. Will dose empiric abx today. Cont lovenox sq, INR last 2.9, s/p warfarin x1 ? Would prefer to keep on AC/warfarin given new onset afib now. Hold antihypertensives. check LA Resp- stable, on RA, no resp distress. ID- tmax 100.4. pending cbc now. check blood cultures and urine cultures/ analysis. Will likely need an empiric dose of abx till ruled out. GI- keep NPO for now. GI prophylaxis with PPI as home. Renal- last Cr okay. K okay, no acidosis. Check urinalysis. No hyatt at this time. LR infusion after bolus. Heme- anemia, hg 9s. Plt okay. last INR 2.6 therapeutic. will keep on AC once INR drops tomorrow. Endo- fingersticks as needed. last fingerstick 90s in afternoon. Musculsk- left total hip 07/20, keep immobilizer on. Wounds- left hip wound care as per ortho. Nutrition- cardiac diet DVT prophylaxis: IV heparin once INR <2 GI prophylaxis: PPI Central Line: no Arterial Line: no Hyatt Cathetor: no Disposition: ICU Code Status: full code Total Critical Care time is 45 minutes, excluding procedures/teaching Hi Cormier MD Transformation Specialist (Electronically Signed)
[2017-07-23 16:40] LABS: Urine Appearance Cloudy; Urine Blood 1+ (Negative); Urine Color Yellow; Urine Ketones 1+ (Negative); Urine Protein Negative (Negative); Urine Urobilinogen Negative (Negative)
[2017-07-23 16:48] LABS: ABS Basophils 0.1 10^3/ul (0-0.2); ABS Eosinophils 0 10^3/ul (0-0.6); ABS Lymphocytes 0.7 10^3/ul (1.0-4.8); ABS Monocytes 0.7 10^3/ul (0-0.8); ABS Neutrophils 5.7 10^3/ul (1.5-7.7); ABS Nucleated RBC 0 10^3/ul; Eosinophil % 0.3 % (0-6); Hematocrit 29 % (35-47); Hemoglobin 9.5 g/dl (12.0-16.0); Mean Corpuscular HGB Conc 33 g/dl (31-36); Mean Corpuscular Hemoglobin 30 pg (27-31); Mean Corpuscular Volume 91 fL (80-97); Mean Platelet Volume 8.8 um3 (7.4-10.4); Nucleated Red Blood Cells % 0; Platelet Count 250 10^3/ul (150-450); Red Blood Count 3.16 10^6/ul (4.0-5.4); Red Cell Distribution Width 15 % (10.5-15); White Blood Count 7.2 10^3/ul (3.5-10.8)
--- NOTE | 2017-07-23 17:00 | ECHO ---
Patient: ABELARDO TINOCO [facility] Rec#: [id number] : 1950 Date: 07/23/2017 Age: 67y Height: 160.02 cm / 63.0 in Weight: 74.39 kg / 164.0 lbs Sex: F BSA: 1.78 Room#: ICU 8 Admit Date#: 07/20/2017 Type: Inpatient Referring: Rachel Palma Reading: Alexis Johnson MD Food Service Steward: Tracy Jacobs RDCS,RDMS CC: Madhavi Guzman Transthoracic Echocardiogram Indication: AFIB BP: 138/110 HR: 165 Rhythm: A-Fib Findings History: HTN, GERD Technical Comments: The study is technically limited due to poor acoustic windows. The study was technically limited due to the patient's inability to lay in the left lateral decubitus position. Left Ventricle: The left ventricular chamber size is normal. Mild concentric left ventricular hypertrophy is observed. The left ventricle appears hyperdynamic. The estimated ejection fraction is greater than 65%. The assessment of diastolic function is non-diagnostic. Left Atrium: The left atrial chamber size is normal. Right Ventricle: The right ventricular cavity size is normal. The right ventricular global systolic function is hyperdynamic. Right Atrium: The right atrial cavity size is normal. Aortic Valve: The aortic valve leaflets are mildly thickened. There is no evidence of aortic regurgitation. There is no evidence of aortic stenosis. Mitral Valve: The mitral valve leaflets appear normal. There is no evidence of mitral regurgitation. There is no evidence of mitral stenosis. Tricuspid Valve: The tricuspid valve leaflets are normal. There is mild to moderate tricuspid regurgitation. No pulmonary hypertension is noted. Pulmonic Valve: The pulmonic valve structure is not well visualized. Pericardium: There is no significant pericardial effusion. Aorta: The ascending aorta is not well visualized. There is no dilatation of the aortic arch. The aortic root is normal in size. Pulmonary Artery: The main pulmonary artery is not well visualized. Venous: The inferior vena cava is dilated. There is less than 50% respiratory change in the inferior vena cava dimension. Contrast: Definity was used to optimize study. A total of 4 ml was used. The initial 2 ml was lost due to an infiltrated IV. Conclusions Patient was extremely tachycardic during study The left ventricle appears hyperdynamic. The estimated ejection fraction is greater than 65%. Subtle focal wall motion abnormalities could not be assessed There is no evidence of aortic stenosis. There is no evidence of mitral regurgitation. There is mild to moderate tricuspid regurgitation. There is no significant pericardial effusion. Measurements Name Value Normal Range RVIDd (AP) 2D 2.4 cm (0.9 - 2.6) RAd ISD 4CH 4 cm (3.4 - 4.9) RA (A4C)W 3.5 cm (2.9 - 4.6) IVSd (2D) 1 cm (0.6 - 1) LVPWd (2D) 1.1 cm (0.6 - 1) LVIDd (2D) 3.6 cm (3.6 - 5.4) LVIDs (2D) 3 cm - LV FS (2D) 16 % (25 - 45) Aortic Annulus 2.1 cm (1.4 - 2.6) Ao root diameter (2D) 2.9 cm (2.1 - 3.5) Aortic arch 2.4 cm (1.8 - 3.4) LA dimension (AP) 2D 3.9 cm (2.3 - 3.8) LAd ISD 4CH 5.6 cm (2.9 - 5.3) LA ISD 4CH W 4 cm (2.5 - 4.5) Name Value Normal Range LA ESV SP 4CH (A/L) 40.93 ml - LA ESV SP 2CH (A/L) 34.8 ml - LA ESV BP (A/L) 41.27 ml - LA ESV BP (A/L) index 23 ml/m2 - LA ESV SP 4CH (MOD) 38.98 ml - LA ESV SP 2CH (MOD) 33.37 ml - Name Value Normal Range MV E-wave Vmax 0.8 m/sec - MV deceleration time 111 msec - LV lateral e' Vmax 0.13 m/sec - LV E:e' lateral ratio 6 ratio - Name Value Normal Range AV Vmax 1.4 m/sec - AV peak gradient 8 mmHg - LVOT Vmax 1.2 m/sec - LVOT peak gradient 6 mmHg - CAMPBELL Vmax 0.7 m/sec - Name Value Normal Range TR Vmax 2.3 m/sec - TR peak gradient 21 mmHg - RAP 3 mmHg - RVSP 24 mmHg - IVC diameter 2.3 cm - Name Value Normal Range PV Vmax 0.8 m/sec - PV peak gradient 2.6 mmHg -
[2017-07-23] MEDS ORDERED: Vancomycin(*) 1,000 MG in NS 0.9% 250 ML* 250 ML IVPB ONE (17:38)
[2017-07-23] MEDS ORDERED: PHENYLEPHRINE IV SCH ×4 (18:00)
[2017-07-23] MEDS ORDERED: NS 0.9% IV SCH ×4 (18:00)
--- NOTE | 2017-07-23 18:26 | PN ---
Progress Note - Progress Note Date of Service: 07/23/17 Note: Sepsis Reassessment 07/23/2017 - 1825pm Vitals After initial fluid bolus complete: HR 80s, tmax 100.7, Resp Rate 20, O2 sat 100% on RA Lactic Acid levels since start of protocol: 0.8 Capillary Refill : Normal <2 seconds Pulmonary Exam: Lungs clear to auscultation bilaterally; no Rhales; no Rhonchi ; no Wheezing Cardiac Exam: regular, normal rate, s1s2+, no murmur Peripheral Pulse Exam: Normal Skin Exam: Normal Skin Color: Normal-pink Hi Cormier MD Analyst [employer] (electronically signed)
--- NOTE | 2017-07-23 19:55 | PN ---
Hospitalist Progress Note Date of Service: 07/23/17 CAT Call Note: CAT call for HR in 170's and afib with AMS. BP 134/110. Cardizem 10mg IVP given , no change. Drip initiated. CT head ordered for altered MS. Transferred to ICU on cardiaem drip to start at 5mg/hr. Also gave small dose narcan, as patient received long acting morphine x 2 doses, maybe latent effect in opioid naiive patient. Discussed with Dr. Guzman and CAT team. Patient safely transferred to ICU room 8.
[2017-07-23] MEDS: Cefepime 2 GM in Dextrose(*) 2 GM/50 ML BAG IV SCH (20:16)
[2017-07-23] MEDS: Amiodarone 360 MG IVPREMIX* 360 MG/200 ML BAG IV SCH ×2 (21:00→22:52)
[2017-07-23] MEDS: NS 0.9% 1000 ML* 1,000 ML IV SCH (23:13)
[2017-07-24 04:06] LABS: Hematocrit 25 % (35-47); Hemoglobin 8.5 g/dl (12.0-16.0); Mean Corpuscular HGB Conc 34 g/dl (31-36); Mean Corpuscular Hemoglobin 31 pg (27-31); Mean Corpuscular Volume 91 fL (80-97); Mean Platelet Volume 8.7 um3 (7.4-10.4); Platelet Count 238 10^3/ul (150-450); Red Blood Count 2.77 10^6/ul (4.0-5.4); Red Cell Distribution Width 15 % (10.5-15)
[2017-07-24 04:21] LABS: EGFR Non-African American 62.5 (>60)
[2017-07-24 04:22] LABS: INR 2.17 (0.77-1.02)
[2017-07-24] MEDS: Cefepime 2 GM in Dextrose(*) 2 GM/50 ML BAG IV SCH ×2 (05:36→17:14)
--- NOTE | 2017-07-24 07:56 | PN ---
Progress Note - Progress Note Date of Service: 07/24/17 SOAP: Subjective: Pt. is alert, nad. No drowsiness or confusion. Objective: LLE - knee immobilizer on - distally nvi. Laboratory Results - last 24 hr 07/23/17 07/23/17 07/23/17 13:19 16:19 16:35 WBC 7.2 RBC 3.16 L Hgb 9.5 L Hct 29 L MCV 91 MCH 30 MCHC 33 RDW 15 Plt Count 250 MPV 8.8 Neut % (Auto) 78.7 Lymph % (Auto) 10.0 L Travis % (Auto) 10.2 H Eos % (Auto) 0.3 Baso % (Auto) 0.8 Absolute Neuts (auto) 5.7 Absolute Lymphs (auto) 0.7 L Absolute Monos (auto) 0.7 Absolute Eos (auto) 0 Absolute Basos (auto) 0.1 Absolute Nucleated RBC 0 Nucleated RBC % 0 INR (Anticoag Therapy) Sodium 131 L D Potassium 4.0 Chloride 95 L Carbon Dioxide 27 Anion Gap 9 BUN 23 Creatinine 1.07 H Est GFR ( Amer) 65.8 Est GFR (Non-Af Amer) 51.1 BUN/Creatinine Ratio 21.5 H Glucose 96 Lactic Acid Calcium 8.5 L Magnesium 2.2 Total Bilirubin 0.70 Direct Bilirubin 0.30 H Indirect Bilirubin 0.4 AST 17 ALT 11 Alkaline Phosphatase 96 Total Protein 5.8 L Albumin 3.2 Globulin 2.6 Albumin/Globulin Ratio 1.2 Urine Color Yellow Urine Appearance Cloudy Urine pH 6.0 Ur Specific [place] 1.010 Urine Protein Negative Urine Ketones 1+ A Urine Blood 1+ A Urine Nitrate Negative Urine Bilirubin Negative Urine Urobilinogen Negative Ur Leukocyte Esterase 1+ A Urine WBC (Auto) Trace(0-5/hpf) Urine RBC (Auto) 2+(6-10/hpf) A Ur Squamous Epith Cells Present A Ur Renal Epithelial Cell Present A Urine Bacteria 1+ A Hyaline Casts Present A Urine Glucose Negative 07/23/17 07/24/17 07/24/17 16:35 03:55 03:55 WBC 5.0 RBC 2.77 L Hgb 8.5 L Hct 25 L MCV 91 MCH 31 MCHC 34 RDW 15 Plt Count 238 MPV 8.7 Neut % (Auto) Lymph % (Auto) Travis % (Auto) Eos % (Auto) Baso % (Auto) Absolute Neuts (auto) Absolute Lymphs (auto) Absolute Monos (auto) Absolute Eos (auto) Absolute Basos (auto) Absolute Nucleated RBC Nucleated RBC % INR (Anticoag Therapy) Sodium 135 L Potassium 3.8 Chloride 102 Carbon Dioxide 28 Anion Gap 5 BUN 16 Creatinine 0.90 Est GFR ( Amer) 80.3 Est GFR (Non-Af Amer) 62.5 BUN/Creatinine Ratio 17.8 Glucose 107 H Lactic Acid 0.8 Calcium 8.3 L Magnesium Total Bilirubin Direct Bilirubin Indirect Bilirubin AST ALT Alkaline Phosphatase Total Protein Albumin Globulin Albumin/Globulin Ratio Urine Color Urine Appearance Urine pH Ur Specific [place] Urine Protein Urine Ketones Urine Blood Urine Nitrate Urine Bilirubin Urine Urobilinogen Ur Leukocyte Esterase Urine WBC (Auto) Urine RBC (Auto) Ur Squamous Epith Cells Ur Renal Epithelial Cell Urine Bacteria Hyaline Casts Urine Glucose 07/24/17 07/24/17 03:55 03:55 WBC RBC Hgb Hct MCV MCH MCHC RDW Plt Count MPV Neut % (Auto) Lymph % (Auto) Travis % (Auto) Eos % (Auto) Baso % (Auto) Absolute Neuts (auto) Absolute Lymphs (auto) Absolute Monos (auto) Absolute Eos (auto) Absolute Basos (auto) Absolute Nucleated RBC Nucleated RBC % INR (Anticoag Therapy) 2.17 H Sodium Potassium Chloride Carbon Dioxide Anion Gap BUN Creatinine Est GFR ( Amer) Est GFR (Non-Af Amer) BUN/Creatinine Ratio Glucose Lactic Acid 0.5 Calcium Magnesium Total Bilirubin Direct Bilirubin Indirect Bilirubin AST ALT Alkaline Phosphatase Total Protein Albumin Globulin Albumin/Globulin Ratio Urine Color Urine Appearance Urine pH Ur Specific [place] Urine Protein Urine Ketones Urine Blood Urine Nitrate Urine Bilirubin Urine Urobilinogen Ur Leukocyte Esterase Urine WBC (Auto) Urine RBC (Auto) Ur Squamous Epith Cells Ur Renal Epithelial Cell Urine Bacteria Hyaline Casts Urine Glucose Vital Signs: Temp Pulse Resp BP Pulse Ox 100.0 F 77 21 95/60 97 07/24/17 07:01 07/24/17 07:01 07/24/17 07:01 07/24/17 07:01 07/24/17 07:01 Assessment: 67 yo F pod 4 s/p revision LTHA for recurrent instability Plan: therapeutic on coumadin - will cont. unless cardiology/ICU team wants to start a different oral med detention for afib new onset afib - amiodarone now - rate in 70's wbat lle with post hip precautions - pt/ot MS changes - CT negative, likely narcotics appreciate medicine/ICU/cardio teams
[2017-07-24] MEDS: Magnesium Hydroxide LIQ* 30 ML UDC PO SCH ×2 (09:05→20:07)
[2017-07-24] MEDS: POTASSIUM GLUCONATE PO SCH (09:05)
[2017-07-24] MEDS: Docusate CAP* 100 MG PO SCH ×2 (09:05→20:05)
[2017-07-24] MEDS: Omeprazole CAP* 20 MG PO SCH (09:06)
[2017-07-24] MEDS: Amiodarone 360 MG IVPREMIX* 360 MG/200 ML BAG IV SCH (09:09)
[2017-07-24] MEDS: NS 0.9% 1000 ML* 1,000 ML IV SCH (09:45)
[2017-07-24] MEDS ORDERED: Potassium Chloride LIQUID* 20 MEQ PACKET PO ONE (10:45)
--- NOTE | 2017-07-24 10:49 | PN ---
Progress Note - Progress Note Date of Service: 07/24/17 Note: Progress Note Critical Care 24 hour events: -started on mary ann yesterday but weaned off overnight -remains on amio 0.5mg/hr now -in NSR now, last BP 120s systolic -awake, more lucid, oriented x3, no distress, no n/v/diarrhe/cp/sob -hyatt in place, making urine -tmax 101.1, fever curve coming down now -on NS infusion Tele: was in rapid afib, now NSR Vitals: Vital Signs Temp 99.9 F 07/24/17 10:00 Pulse 82 07/24/17 10:00 Resp 23 07/24/17 10:00 BP 108/58 07/24/17 10:00 Pulse Ox 98 07/24/17 10:00 Intake & Output 07/23/17 07/24/17 07/24/17 18:59 06:59 18:59 Intake Total 1360 3537.7 118 Output Total 1600 1125 Balance -240 2412.7 118 Weight 180 lb 5.41 oz 184 lb 11.958 oz Intake: IV Fluids 1000 2749 NS (0.9%) 1000 2749 IVPB 330 ABX - CEFEPIME 55 ABX - VANCOMYCIN 275 Medicated IV 458.7 CC - Amiodarone 391 CC - Phenylephrine/ 67.7 Neosynephrine Oral 360 118 Output: Hyatt 1600 1125 Other: Estimated Void Medium # Voids 2 O2/Vent: RA now, off NC Infusions: NS 75cc/hr, amio 0.5mg/hr Current Medications: Acetaminophen (Tylenol Tab*) 650 mg PO Q4H PRN PRN Reason: PAIN OR TEMPERATURE Last Admin: 07/21/17 03:32 Dose: 650 mg Hydrocodone Bitart/Acetaminophen ([place] 5-325 Tab*) 1 tab PO Q3H PRN PRN Reason: PAIN - MODERATE Alprazolam (Xanax Tab*) 0.25 mg PO BID PRN PRN Reason: ANXIETY Bisacodyl (Dulcolax Supp*) 10 mg [place] DAILY PRN PRN Reason: constipation Calcium Carbonate (Tums*) 500 mg PO Q4H PRN PRN Reason: INDIGESTION Last Admin: 07/22/17 17:39 Dose: 500 mg Cyclobenzaprine HCl (Flexeril Tab*) 5 mg PO TID PRN PRN Reason: SPASMS Diphenhydramine HCl (Benadryl Iv*) 12.5 mg IV Q6H PRN PRN Reason: PRURITIS Docusate Sodium (Colace Cap*) 100 mg PO BID [facility] [place] Last Admin: 07/24/17 09:05 Dose: 100 mg Hydromorphone HCl (Dilaudid Tab*) 2 mg PO Q6H PRN PRN Reason: PAIN Cefepime HCl (Maxipime 2 Gm In Dextrose Duplex (*)) 2 gm in 50 mls @ 100 mls/ hr IV Q12H [facility] [place] Last Admin: 07/24/17 05:36 Dose: 100 mls/hr Amiodarone HCl (Nexterone 360 Mg/200 Ml Ivpremix*) 360 mg in 200 mls @ 16.667 mls/hr IV Q12H [facility] [place] PRN Reason: 0.5 MG/MIN Stop: 07/24/17 22:29 Last Admin: 07/24/17 09:09 Dose: 16.667 mls/hr Sodium Chloride (Ns 0.9% 1000 Ml*) 1,000 mls @ 75 mls/hr IV PER RATE [facility] [place] Last Admin: 07/24/17 09:45 Dose: 75 mls/hr Lactulose (Lactulose*) 30 ml PO Q6H PRN PRN Reason: constipation Magnesium Hydroxide (Milk Of Magnesia Liq*) 30 ml PO BID [facility] [place] Last Admin: 07/24/17 09:05 Dose: 30 ml Magnesium Hydroxide (Milk Of Magnesia Liq*) 30 ml PO Q6H PRN PRN Reason: constipation Morphine Sulfate (Morphine Vial*) 2 mg IV Q2H PRN PRN Reason: PAIN Non-Formulary Medication (Potassium Gluconate [Potassium]) 270 mg PO QAM [facility] [place] Last Admin: 07/24/17 09:05 Dose: Not Given Omeprazole (Prilosec Cap*) 40 mg PO QAM [facility] [place] Last Admin: 07/24/17 09:06 Dose: 40 mg Ondansetron HCl (Zofran Inj*) 4 mg IV Q6H PRN PRN Reason: nausea Last Admin: 07/22/17 20:37 Dose: 4 mg Ondansetron HCl (Zofran Tab*) 4 mg PO Q6H PRN PRN Reason: NAUSEA Last Admin: 07/23/17 08:47 Dose: 4 mg Pharmacy Profile Note (Coumadin Daily Reminder*) 1 note FOLLOW UP 170 [facility] [place] Last Admin: 07/23/17 19:00 Dose: Not Given Pharmacy Profile Note (Coumadin Per Pharmacy*) 1 note FOLLOW UP .PER PHARMACY [facility] [place] PRN Reason: Protocol Polyethylene Glycol/Electrolytes (Miralax*) 17 gm PO DAILY PRN PRN Reason: Constipation Potassium Chloride (Klor-Con Liquid*) 20 meq PO ONCE ONE Stop: 07/24/17 10:46 Warfarin Sodium (Coumadin Tab(*)) 5 mg PO 170 ONE Stop: 07/24/17 17:01 Physical Exam: General: awake, alert, no distress, no diaphoresis Head: normocephalic, atraumatic HEENT: no pallor, no icterus, moist mucous membranes Neck: soft, supple, no jvd, no stridor CVS: regular, normal rate, no murmur Resp: bilateral air entry, no rhales, no wheeze, no rhonchi, no acc muscle use Abdomen: soft, nontender, nondistended, bowel sounds present Ext: pulses+, warm, no edema; left hip in immobilizer and without tenderness at hip much, legs appear to be warm and without swelling Skin: intact, no breakdown Neuro: awake, alert, orientedx3, moving all extremities, no gross focal deficit Labs: Laboratory Results - last 24 hr 07/23/17 07/23/17 07/23/17 13:19 16:19 16:35 WBC 7.2 RBC 3.16 L Hgb 9.5 L Hct 29 L MCV 91 MCH 30 MCHC 33 RDW 15 Plt Count 250 MPV 8.8 Neut % (Auto) 78.7 Lymph % (Auto) 10.0 L [place] % (Auto) 10.2 H Eos % (Auto) 0.3 Baso % (Auto) 0.8 Absolute Neuts (auto) 5.7 Absolute Lymphs (auto) 0.7 L Absolute Monos (auto) 0.7 Absolute Eos (auto) 0 Absolute Basos (auto) 0.1 Absolute Nucleated RBC 0 Nucleated RBC % 0 INR (Anticoag Therapy) Sodium 131 L D Potassium 4.0 Chloride 95 L Carbon Dioxide 27 Anion Gap 9 BUN 23 Creatinine 1.07 H Est GFR ( Amer) 65.8 Est GFR (Non-Af Amer) 51.1 BUN/Creatinine Ratio 21.5 H Glucose 96 Lactic Acid Calcium 8.5 L Magnesium 2.2 Total Bilirubin 0.70 Direct Bilirubin 0.30 H Indirect Bilirubin 0.4 AST 17 ALT 11 Alkaline Phosphatase 96 Total Protein 5.8 L Albumin 3.2 Globulin 2.6 Albumin/Globulin Ratio 1.2 Urine Color Yellow Urine Appearance Cloudy Urine pH 6.0 Ur Specific [place] 1.010 Urine Protein Negative Urine Ketones 1+ A Urine Blood 1+ A Urine Nitrate Negative Urine Bilirubin Negative Urine Urobilinogen Negative Ur Leukocyte Esterase 1+ A Urine WBC (Auto) Trace(0-5/hpf) Urine RBC (Auto) 2+(6-10/hpf) A Ur Squamous Epith Cells Present A Ur Renal Epithelial Cell Present A Urine Bacteria 1+ A Hyaline Casts Present A Urine Glucose Negative 07/23/17 07/24/17 07/24/17 16:35 03:55 03:55 WBC 5.0 RBC 2.77 L Hgb 8.5 L Hct 25 L MCV 91 MCH 31 MCHC 34 RDW 15 Plt Count 238 MPV 8.7 Neut % (Auto) Lymph % (Auto) [place] % (Auto) Eos % (Auto) Baso % (Auto) Absolute Neuts (auto) Absolute Lymphs (auto) Absolute Monos (auto) Absolute Eos (auto) Absolute Basos (auto) Absolute Nucleated RBC Nucleated RBC % INR (Anticoag Therapy) Sodium 135 L Potassium 3.8 Chloride 102 Carbon Dioxide 28 Anion Gap 5 BUN 16 Creatinine 0.90 Est GFR ( Amer) 80.3 Est GFR (Non-Af Amer) 62.5 BUN/Creatinine Ratio 17.8 Glucose 107 H Lactic Acid 0.8 Calcium 8.3 L Magnesium Total Bilirubin Direct Bilirubin Indirect Bilirubin AST ALT Alkaline Phosphatase Total Protein Albumin Globulin Albumin/Globulin Ratio Urine Color Urine Appearance Urine pH Ur Specific [place] Urine Protein Urine Ketones Urine Blood Urine Nitrate Urine Bilirubin Urine Urobilinogen Ur Leukocyte Esterase Urine WBC (Auto) Urine RBC (Auto) Ur Squamous Epith Cells Ur Renal Epithelial Cell Urine Bacteria Hyaline Casts Urine Glucose 07/24/17 07/24/17 03:55 03:55 WBC RBC Hgb Hct MCV MCH MCHC RDW Plt Count MPV Neut % (Auto) Lymph % (Auto) [place] % (Auto) Eos % (Auto) Baso % (Auto) Absolute Neuts (auto) Absolute Lymphs (auto) Absolute Monos (auto) Absolute Eos (auto) Absolute Basos (auto) Absolute Nucleated RBC Nucleated RBC % INR (Anticoag Therapy) 2.17 H Sodium Potassium Chloride Carbon Dioxide Anion Gap BUN Creatinine Est GFR ( Amer) Est GFR (Non-Af Amer) BUN/Creatinine Ratio Glucose Lactic Acid 0.5 Calcium Magnesium Total Bilirubin Direct Bilirubin Indirect Bilirubin AST ALT Alkaline Phosphatase Total Protein Albumin Globulin Albumin/Globulin Ratio Urine Color Urine Appearance Urine pH Ur Specific [place] Urine Protein Urine Ketones Urine Blood Urine Nitrate Urine Bilirubin Urine Urobilinogen Ur Leukocyte Esterase Urine WBC (Auto) Urine RBC (Auto) Ur Squamous Epith Cells Ur Renal Epithelial Cell Urine Bacteria Hyaline Casts Urine Glucose Imaging: CT head 07/23 - no acute pathology Assessment: 67y F pmhx HTN, anxiety disorder, GERD; Patient had multiple dislocations of left hip hemiarthroplasty. She was brought in and scheduled and had a Left total hip arthroplasty done 07/20. Post op course uncomplicated, good surgical site. Noted to have some confusion on 07/22-07/23. Today she was planned to be discharged home but developed rapid Afib upto 160s, FILE CLERK called and given Cardizem bolus for rate control, starting PO Cardizem also. Rate was not well controlled and due to Cardizem infusion to be started she was upgraded to the ICU for better rate control. Low grade temp, SBP 90s at times during afib. -New onset Atrial Fibrillation with rapid ventricular rate -Delirium, 2/2 to metabolic/toxic etiology -severe sepsis with shock -suspected UTI as source -s/p Left total hip arthroplasty 07/20 Plan: Neuro- awake/alert now, oriented, no confusion it seems. neurochecks. CVS- Afib now NSR. Cont Amio infusion, d/c at 24 hour augustus. Will then start metoprolol 25mg po bid for rate control. BP stable. Cont IVF NS 75cc/hour, decrease if BP remains stable overnight. IV abx for suspected Urinary source of infection. Off pressors now. Cont Warfarin, pharmacy dosing, target INR 2-3 for Afib and LTHA prophylaxis. Resp- stable, on NC, now off on RA, no distress. suspected atelectasis from poor effort. Incentive spirometry. CXR today. ID- tmax 101.6, curve decreasing. WBC normal. Urinalysis with bacteria+ and cloudy. Histoyr of UTI in past as per patient. Will cont cefepime/vanco (day#2) . GI- Cardiac diet. GI prophylaxis with PPI as home. Renal- last Cr okay. K okay, no acidosis. Hyatt for obstruction, re-eval in evenign and may discontinue. NS 75cc/hour, will dec to 50cc/hour Heme- anemia, hg 8-9s. Plt okay. last INR 2.17. Cont warfarin for Afib/LTHA, target INR 2-3. Endo- fingersticks as needed Musculsk- left total hip 07/20, keep immobilizer on. Ambulate, PT/OT Wounds- left hip wound care as per ortho. Nutrition- cardiac diet DVT prophylaxis: warfarin GI prophylaxis: PPI Central Line: no Arterial Line: no Hyatt Cathetor: yes Disposition: ICU Code Status: full code Total Critical Care time is 40 minutes, excluding procedures/teaching Hi Cormier MD Statistics Intern (Electronically Signed)
--- NOTE | 2017-07-24 11:52 | RAD ---
INDICATION: Hypoxia. Sepsis. COMPARISON: TECHNIQUE: An AP portable view obtained at 1100 hours is submitted. FINDINGS: Bones/Soft Tissues: There are no acute bony findings. Cardiomediastinal: The cardiomediastinal silhouette is normal. Lungs: There are no infiltrates. Pleura: There are no pleural effusions. Other: None IMPRESSION: NO ACTIVE DISEASE.
[2017-07-24] MEDS ORDERED: Warfarin TAB(*) 5 MG PO ONE (17:00)
[2017-07-24] MEDS: Diltiazem TAB* 30 MG PO SCH (17:13)
[2017-07-25] MEDS: Diltiazem TAB* 30 MG PO SCH ×4 (01:01→17:08)
[2017-07-25 06:02] LABS: EGFR Non-African American 83.5 (>60)
[2017-07-25] MEDS: Cefepime 2 GM in Dextrose(*) 2 GM/50 ML BAG IV SCH ×2 (06:02→17:08)
[2017-07-25] MEDS: Acetaminophen TAB* 325 MG PO PRN ×2 (06:02→21:17)
[2017-07-25] MEDS: Docusate CAP* 100 MG PO SCH ×2 (07:52→21:17)
[2017-07-25] MEDS: Magnesium Hydroxide LIQ* 30 ML UDC PO SCH ×2 (07:54→21:17)
[2017-07-25] MEDS: POTASSIUM GLUCONATE PO SCH (07:55)
[2017-07-25] MEDS: Omeprazole CAP* 20 MG PO SCH (07:55)
[2017-07-25 08:04] LABS: ABS Basophils 0.1 10^3/ul (0-0.2); ABS Eosinophils 0.1 10^3/ul (0-0.6); ABS Lymphocytes 0.5 10^3/ul (1.0-4.8); ABS Monocytes 0.8 10^3/ul (0-0.8); ABS Neutrophils 6.3 10^3/ul (1.5-7.7); ABS Nucleated RBC 0 10^3/ul; Eosinophil % 0.8 % (0-6); Hematocrit 26 % (35-47); Hemoglobin 8.8 g/dl (12.0-16.0); Lymphocyte % 6.3 % (25-47); Mean Corpuscular HGB Conc 33 g/dl (31-36); Mean Corpuscular Hemoglobin 30 pg (27-31); Mean Corpuscular Volume 90 fL (80-97); Mean Platelet Volume 8.9 um3 (7.4-10.4); Nucleated Red Blood Cells % 0; Platelet Count 256 10^3/ul (150-450); Red Blood Count 2.92 10^6/ul (4.0-5.4); Red Cell Distribution Width 15 % (10.5-15); White Blood Count 7.8 10^3/ul (3.5-10.8)
--- NOTE | 2017-07-25 08:57 | PN ---
Progress Note - Progress Note Date of Service: 07/25/17 Note: Progress Note Critical Care 24 hour events: -remains off pressors -remains in NSR, off amio, started on cardizem po yesterday -BP stable -febrile 102 overnight again -awake, alert, no complaints. eating. making urine. hyatt+. not confused. Tele: NSR Vitals: Vital Signs Temp 101.8 F 07/25/17 07:01 Pulse 99 07/25/17 07:01 Resp 24 07/25/17 07:01 BP 141/75 07/25/17 07:00 Pulse Ox 95 07/25/17 07:01 Intake & Output 07/24/17 07/25/17 07/25/17 18:59 06:59 18:59 Intake Total 1263 1241 Output Total 1225 725 Balance 38 516 Weight 185 lb 13.595 oz Intake: IV Fluids 645 1091 ABX - CEFEPIME 50 60 NS (0.9%) 595 1031 Medicated IV 140 CC - Amiodarone 140 Oral 478 150 Output: Hyatt 1225 725 Other: # Bowel Movements 1 Estimated Stool Amount Large O2/Vent: RA Infusions: NS 75cc/hr Current Medications: Acetaminophen (Tylenol Tab*) 650 mg PO Q4H PRN PRN Reason: PAIN OR TEMPERATURE Last Admin: 07/25/17 06:02 Dose: 650 mg Hydrocodone Bitart/Acetaminophen ([place] 5-325 Tab*) 1 tab PO Q3H PRN PRN Reason: PAIN - MODERATE Alprazolam (Xanax Tab*) 0.25 mg PO BID PRN PRN Reason: ANXIETY Bisacodyl (Dulcolax Supp*) 10 mg [place] DAILY PRN PRN Reason: constipation Calcium Carbonate (Tums*) 500 mg PO Q4H PRN PRN Reason: INDIGESTION Last Admin: 07/22/17 17:39 Dose: 500 mg Cyclobenzaprine HCl (Flexeril Tab*) 5 mg PO TID PRN PRN Reason: SPASMS Diltiazem HCl (Cardizem Tab*) 30 mg PO Q6HR [facility] Last Admin: 07/25/17 06:01 Dose: 30 mg Diphenhydramine HCl (Benadryl Iv*) 12.5 mg IV Q6H PRN PRN Reason: PRURITIS Docusate Sodium (Colace Cap*) 100 mg PO BID [facility] Last Admin: 07/25/17 07:52 Dose: 100 mg Hydromorphone HCl (Dilaudid Tab*) 2 mg PO Q6H PRN PRN Reason: PAIN Cefepime HCl (Maxipime 2 Gm In Dextrose Duplex (*)) 2 gm in 50 mls @ 100 mls/ hr IV Q12H [facility] Last Admin: 07/25/17 06:02 Dose: 100 mls/hr Sodium Chloride (Ns 0.9% 1000 Ml*) 1,000 mls @ 75 mls/hr IV PER RATE [facility] Last Admin: 07/24/17 09:45 Dose: 75 mls/hr Vancomycin HCl 1,000 mg/ (Sodium Chloride) 250 mls @ 166.667 mls/hr IVPB Q12H [facility] Lactulose (Lactulose*) 30 ml PO Q6H PRN PRN Reason: constipation Magnesium Hydroxide (Milk Of Magnesia Liq*) 30 ml PO BID [facility] Last Admin: 07/25/17 07:54 Dose: Not Given Magnesium Hydroxide (Milk Of Magnesia Liq*) 30 ml PO Q6H PRN PRN Reason: constipation Morphine Sulfate (Morphine Vial*) 2 mg IV Q2H PRN PRN Reason: PAIN Non-Formulary Medication (Potassium Gluconate [Potassium]) 270 mg PO QAM [facility] Last Admin: 07/25/17 07:55 Dose: Not Given Omeprazole (Prilosec Cap*) 40 mg PO QAM [facility] Last Admin: 07/25/17 07:55 Dose: 40 mg Ondansetron HCl (Zofran Inj*) 4 mg IV Q6H PRN PRN Reason: nausea Last Admin: 07/22/17 20:37 Dose: 4 mg Ondansetron HCl (Zofran Tab*) 4 mg PO Q6H PRN PRN Reason: NAUSEA Last Admin: 07/23/17 08:47 Dose: 4 mg Pharmacy Consult (Vancomycin Per Pharmacy*) 1 note FOLLOW UP .VANC PER PHARMACY [facility] Pharmacy Profile Note (Coumadin Daily Reminder*) 1 note FOLLOW UP 1700 [facility] Last Admin: 07/24/17 17:10 Dose: 1 note Pharmacy Profile Note (Coumadin Per Pharmacy*) 1 note FOLLOW UP .PER PHARMACY [facility] PRN Reason: Protocol Polyethylene Glycol/Electrolytes (Miralax*) 17 gm PO DAILY PRN PRN Reason: Constipation Physical Exam: General: awake, alert, no distress, no diaphoresis Head: normocephalic, atraumatic HEENT: no pallor, no icterus, moist mucous membranes Neck: soft, supple, no jvd, no stridor CVS: regular, normal rate, no murmur Resp: bilateral air entry, no rhales, no wheeze, no rhonchi, no acc muscle use Abdomen: soft, nontender, nondistended, bowel sounds present Ext: pulses+, warm, no edema; left hip in immobilizer and without tenderness. Minimal left leg edema compared to right Skin: intact, no breakdown Neuro: awake, alert, orientedx3, moving all extremities, no gross focal deficit Labs: Laboratory Results - last 24 hr 07/25/17 07/25/17 07/25/17 04:57 04:57 07:45 WBC 7.8 RBC 2.92 L Hgb 8.8 L Hct 26 L MCV 90 MCH 30 MCHC 33 RDW 15 Plt Count 256 MPV 8.9 Neut % (Auto) 81.3 Lymph % (Auto) 6.3 L [place] % (Auto) 10.8 H Eos % (Auto) 0.8 Baso % (Auto) 0.8 Absolute Neuts (auto) 6.3 Absolute Lymphs (auto) 0.5 L Absolute Monos (auto) 0.8 Absolute Eos (auto) 0.1 Absolute Basos (auto) 0.1 Absolute Nucleated RBC 0 Nucleated RBC % 0 INR (Anticoag Therapy) 2.00 H Sodium 137 L Potassium TNP Chloride 107 Carbon Dioxide 24 Anion Gap 6 BUN 11 Creatinine 0.70 Est GFR ( Amer) 107.3 Est GFR (Non-Af Amer) 83.5 BUN/Creatinine Ratio 15.7 Glucose 102 H Calcium 8.2 L Imaging: CT head 07/23 - no acute pathology cxr 07/24 - no infiltrate noted Assessment: 67y F pmhx HTN, anxiety disorder, GERD; Patient had multiple dislocations of left hip hemiarthroplasty. She was brought in and scheduled and had a Left total hip arthroplasty done 07/20. Post op course uncomplicated, good surgical site. Noted to have some confusion on 07/22-07/23. Today she was planned to be discharged home but developed rapid Afib upto 160s, TOXICOLOGY SUPERVISOR called and given Cardizem bolus for rate control, starting PO Cardizem also. Rate was not well controlled and due to Cardizem infusion to be started she was upgraded to the ICU for better rate control. Low grade temp, SBP 90s at times during afib. -New onset Atrial Fibrillation with rapid ventricular rate -Delirium, 2/2 to metabolic/toxic etiology -severe sepsis with shock, improved -suspected UTI as source -s/p Left total hip arthroplasty 07/20 Plan: Neuro- awake/alert , oriented CVS- Afib now NSR. Cont cardizem 30mg po q6h. BP stable. Cont warfarin daily, pharmacy dosing, target INR 2-3. Dec IVF NS 50cc/hour. IV abx for suspected Urinary source of infection. Resp- stable, RA. Incentive spirometry. CXR without active disease. ID- tmax 102. Did not get vanco yesterday. Urine cx with Enterobacter and E.coli +. Histoyr of UTI in past as per patient. Will cont cefepime/vanco (day#3). Vanco not given yesterday, unclear if pharmacy got the order to manage. Redosing 1gm BID now and pharmacy following. GI- Cardiac diet. GI prophylaxis with PPI as home. Renal- last Cr okay. K okay, no acidosis. Dec NS 50cc/hour. D/c hyatt later today, re-eval for obstruction. Heme- anemia, hg 8-9s. Plt okay. INR 2.0. Cont warfarin for Afib/LTHA, target INR 2-3. Endo- fingersticks as needed Musculsk- left total hip 07/20, keep immobilizer on. Ambulate, PT/OT Wounds- left hip wound care as per ortho. Nutrition- cardiac diet DVT prophylaxis: warfarin GI prophylaxis: PPI Central Line: no Arterial Line: no Hyatt Cathetor: yes, can d/c today Disposition: ICU Code Status: full code Hi Cormier MD Ignition Specialist (Electronically Signed)
[2017-07-25] MEDS ORDERED: Vancomycin per Pharmacy* NOTE FOLLOW UP SCH (09:00)
[2017-07-25] MEDS: Ondansetron INJ* 2 MG/ML VIAL IV PRN (09:42)
[2017-07-25] MEDS: Calcium Carbonate CHEW TAB* 500 MG (TUMS) PO PRN (09:42)
[2017-07-25] MEDS: HYDROcodone/ACETAMIN 5-325 MG* 1 TAB PO PRN ×2 (09:42→13:59)
[2017-07-25] MEDS: Vancomycin(*) 1,000 MG in NS 0.9% 250 ML* 250 ML IVPB SCH ×2 (10:09→21:19)
[2017-07-25] MEDS: Nitroglycerin TAB 0.4 MG* 0.4 MG TAB ONE ×2 (11:15→11:25)
[2017-07-25] MEDS: ALPRAZolam TAB* 0.25 MG PO PRN ×2 (11:36→21:17)
--- NOTE | 2017-07-25 13:35 | PN ---
Progress Note - Progress Note Date of Service: 07/25/17 SOAP: Subjective: []Patient seen at bedside. Her left hip is nonpainful, reportedly feels "great" . Denies LLE numbness. Off of amiodarone drip, now on cardizem PO maintaining NSR. Objective: []General: NAD, appears very fatigued LLE: Immobilizer in place. Dressing of left hip changed. Incision CDi without surrounding erythema and no discharge. DF/PF intact. Sensation intact distally. Capillary refill less than two seconds distally. BL LE: Calves supple and nontender without erythema, edema or palpable cords Vital Signs Temp 99.9 F 07/25/17 12:00 Pulse 81 07/25/17 10:01 Resp 20 07/25/17 11:36 BP 116/72 07/25/17 10:01 Pulse Ox 99 07/25/17 10:01 Intake & Output 07/24/17 07/25/17 07/25/17 18:59 06:59 18:59 Intake Total 1263 1241 300 Output Total 1225 725 575 Balance 38 516 -275 Weight 185 lb 13.595 oz Intake: IV Fluids 645 1091 ABX - CEFEPIME 50 60 NS (0.9%) 595 1031 Medicated IV 140 CC - Amiodarone 140 Oral 478 150 300 Output: Will 1225 725 575 Other: # Bowel Movements 1 Estimated Stool Amount Large Laboratory Last Values WBC 7.8 10^3/ul (3.5-10.8) 07/25/17 07:45 RBC 2.92 10^6/ul (4.0-5.4) L 07/25/17 07:45 Hgb 8.8 g/dl (12.0-16.0) L 07/25/17 07:45 Hct 26 % (35-47) L 07/25/17 07:45 MCV 90 fL (80-97) 07/25/17 07:45 MCH 30 pg (27-31) 07/25/17 07:45 MCHC 33 g/dl (31-36) 07/25/17 07:45 RDW 15 % (10.5-15) 07/25/17 07:45 Plt Count 256 10^3/ul (150-450) 07/25/17 07:45 MPV 8.9 um3 (7.4-10.4) 07/25/17 07:45 Neut % (Auto) 81.3 % (38-83) 07/25/17 07:45 Lymph % (Auto) 6.3 % (25-47) L 07/25/17 07:45 [place] % (Auto) 10.8 % (0-7) H 07/25/17 07:45 Eos % (Auto) 0.8 % (0-6) 07/25/17 07:45 Baso % (Auto) 0.8 % (0-2) 07/25/17 07:45 Absolute Neuts (auto) 6.3 10^3/ul (1.5-7.7) 07/25/17 07:45 Absolute Lymphs (auto) 0.5 10^3/ul (1.0-4.8) L 07/25/17 07:45 Absolute Monos (auto) 0.8 10^3/ul (0-0.8) 07/25/17 07:45 Absolute Eos (auto) 0.1 10^3/ul (0-0.6) 07/25/17 07:45 Absolute Basos (auto) 0.1 10^3/ul (0-0.2) 07/25/17 07:45 Absolute Nucleated RBC 0 10^3/ul 07/25/17 07:45 Nucleated RBC % 0 07/25/17 07:45 INR (Anticoag Therapy) 2.00 (0.77-1.02) H 07/25/17 04:57 Sodium 137 mmol/L (139-145) L 07/25/17 04:57 Potassium TNP 07/25/17 04:57 Chloride 107 mmol/L (101-111) 07/25/17 04:57 Carbon Dioxide 24 mmol/L (22-32) 07/25/17 04:57 Anion Gap 6 mmol/L (2-11) 07/25/17 04:57 BUN 11 mg/dL (6-24) 07/25/17 04:57 Creatinine 0.70 mg/dL (0.51-0.95) 07/25/17 04:57 Est GFR ( Amer) 107.3 (>60) 07/25/17 04:57 Est GFR (Non-Af Amer) 83.5 (>60) 07/25/17 04:57 BUN/Creatinine Ratio 15.7 (8-20) 07/25/17 04:57 Glucose 102 mg/dL (70-100) H 07/25/17 04:57 Lactic Acid 0.5 mmol/L (0.5-2.0) 07/24/17 03:55 Calcium 8.2 mg/dL (8.6-10.3) L 07/25/17 04:57 Magnesium 2.2 mg/dL (1.9-2.7) 07/23/17 13:19 Total Bilirubin 0.70 mg/dL (0.2-1.0) 07/23/17 13:19 Direct Bilirubin 0.30 mg/dL (0.03-0.18) H 07/23/17 13:19 Indirect Bilirubin 0.4 mg/dL (0.3-1.0) 07/23/17 13:19 AST 17 U/L (13-39) 07/23/17 13:19 ALT 11 U/L (7-52) 07/23/17 13:19 Alkaline Phosphatase 96 U/L (34-104) 07/23/17 13:19 Total Protein 5.8 g/dL (6.4-8.9) L 07/23/17 13:19 Albumin 3.2 g/dL (3.2-5.2) 07/23/17 13:19 Globulin 2.6 g/dL (2-4) 07/23/17 13:19 Albumin/Globulin Ratio 1.2 (1-3) 07/23/17 13:19 Urine Color Yellow 07/23/17 16:19 Urine Appearance Cloudy 07/23/17 16:19 Urine pH 6.0 (5-9) 07/23/17 16:19 Ur Specific [place] 1.010 (1.010-1.030) 07/23/17 16:19 Urine Protein Negative (Negative) 07/23/17 16: Urine Ketones 1+ (Negative) A 07/23/17 16: Urine Blood 1+ (Negative) A 07/23/17 16:19 Urine Nitrate Negative (Negative) 07/23/17 16:19 Urine Bilirubin Negative (Negative) 07/23/17 16:19 Urine Urobilinogen Negative (Negative) 07/23/17 16:19 Ur Leukocyte Esterase 1+ (Negative) A 07/23/17 16:19 Urine WBC (Auto) Trace(0-5/hpf) (Absent) 07/23/17 16:19 Urine RBC (Auto) 2+(6-10/hpf) (Absent) A 07/23/17 16:19 Ur Squamous Epith Cells Present (Absent) A 07/23/17 16:19 Ur Renal Epithelial Cell Present (Absent) A 07/23/17 16:19 Urine Bacteria 1+ (Absent) A 07/23/17 16:19 Hyaline Casts Present (Absent) A 07/23/17 16:19 Urine Glucose Negative (Negative) 07/23/17 16:19 Assessment: [] sp left total hip arthroplasty new onset a-fib Delirium severe sepsis with shock Plan: []wbat lle with hip precautions pt/ot Therapeutic on coumadin, continue Appreciate medicine, cardio, icu care
[2017-07-25] MEDS ORDERED: Nitroglycerin TAB 0.4 MG* 0.4 MG TAB SL ONE (14:32)
[2017-07-25] MEDS ORDERED: Warfarin TAB(*) 5 MG PO ONE (17:00)
[2017-07-26] MEDS: Diltiazem TAB* 30 MG PO SCH ×5 (00:47→23:32)
[2017-07-26] MEDS: NS 0.9% 1000 ML* 1,000 ML IV SCH ×2 (02:55→20:11)
[2017-07-26] MEDS: Cefepime 2 GM in Dextrose(*) 2 GM/50 ML BAG IV SCH ×2 (05:20→17:34)
[2017-07-26 06:17] LABS: Hematocrit 26 % (35-47); Hemoglobin 8.6 g/dl (12.0-16.0); Mean Corpuscular HGB Conc 33 g/dl (31-36); Mean Corpuscular Hemoglobin 30 pg (27-31); Mean Corpuscular Volume 91 fL (80-97); Mean Platelet Volume 8.2 um3 (7.4-10.4); Platelet Count 285 10^3/ul (150-450); Red Blood Count 2.86 10^6/ul (4.0-5.4); Red Cell Distribution Width 15 % (10.5-15); White Blood Count 10.1 10^3/ul (3.5-10.8)
[2017-07-26 06:34] LABS: EGFR Non-African American 82.1 (>60)
[2017-07-26 06:39] LABS: INR 4.38 (0.77-1.02)
[2017-07-26] MEDS: POTASSIUM GLUCONATE PO SCH (09:14)
[2017-07-26] MEDS: Docusate CAP* 100 MG PO SCH ×2 (09:14→20:11)
[2017-07-26] MEDS: Omeprazole CAP* 20 MG PO SCH (09:14)
[2017-07-26] MEDS: Magnesium Hydroxide LIQ* 30 ML UDC PO SCH ×2 (09:14→20:11)
--- NOTE | 2017-07-26 14:00 | PN ---
Progress Note - Progress Note Date of Service: 07/26/17 SOAP: Subjective: [] Patient seen at bedside, now out of ICU. She is feeling well, denies any pain of her left hip or numbness of the left leg. Was able to walk down the [place] with physical therapy today. Objective: Vital Signs Temp 98.3 F 07/26/17 11:45 Pulse 81 07/26/17 11:45 Resp 18 07/26/17 11:45 BP 105/68 07/26/17 11:45 Pulse Ox 95 07/26/17 11:46 Intake & Output 07/25/17 07/26/17 07/26/17 18:59 06:59 18:59 Intake Total 1204 1145 120 Output Total 750 250 Balance 454 895 120 Weight 180 lb Intake: IV Fluids 179 745 ABX - VANCOMYCIN 270 NS (0.9%) 179 475 IVPB 325 ABX - CEFEPIME 60 ABX - VANCOMYCIN 265 Oral 700 400 120 Output: Urine 175 250 Will 575 Other: # Voids 0 Laboratory Last Values WBC 10.1 10^3/ul (3.5-10.8) 07/26/17 06:06 RBC 2.86 10^6/ul (4.0-5.4) L 07/26/17 06:06 Hgb 8.6 g/dl (12.0-16.0) L 07/26/17 06:06 Hct 26 % (35-47) L 07/26/17 06:06 MCV 91 fL (80-97) 07/26/17 06:06 MCH 30 pg (27-31) 07/26/17 06:06 MCHC 33 g/dl (31-36) 07/26/17 06:06 RDW 15 % (10.5-15) 07/26/17 06:06 Plt Count 285 10^3/ul (150-450) 07/26/17 06:06 MPV 8.2 um3 (7.4-10.4) 07/26/17 06:06 Neut % (Auto) 81.3 % (38-83) 07/25/17 07:45 Lymph % (Auto) 6.3 % (25-47) L 07/25/17 07:45 Emmons % (Auto) 10.8 % (0-7) H 07/25/17 07:45 Eos % (Auto) 0.8 % (0-6) 07/25/17 07:45 Baso % (Auto) 0.8 % (0-2) 07/25/17 07:45 Absolute Neuts (auto) 6.3 10^3/ul (1.5-7.7) 07/25/17 07:45 Absolute Lymphs (auto) 0.5 10^3/ul (1.0-4.8) L 07/25/17 07:45 Absolute Monos (auto) 0.8 10^3/ul (0-0.8) 07/25/17 07:45 Absolute Eos (auto) 0.1 10^3/ul (0-0.6) 07/25/17 07:45 Absolute Basos (auto) 0.1 10^3/ul (0-0.2) 07/25/17 07:45 Absolute Nucleated RBC 0 10^3/ul 07/25/17 07:45 Nucleated RBC % 0 07/25/17 07:45 INR (Anticoag Therapy) 4.38 (0.77-1.02) H 07/26/17 06:06 Sodium 137 mmol/L (139-145) L 07/26/17 06:06 Potassium 3.5 mmol/L (3.5-5.0) 07/26/17 06:06 Chloride 105 mmol/L (101-111) 07/26/17 06:06 Carbon Dioxide 27 mmol/L (22-32) 07/26/17 06:06 Anion Gap 5 mmol/L (2-11) 07/26/17 06:06 BUN 12 mg/dL (6-24) 07/26/17 06:06 Creatinine 0.71 mg/dL (0.51-0.95) 07/26/17 06:06 Est GFR ( Amer) 105.6 (>60) 07/26/17 06:06 Est GFR (Non-Af Amer) 82.1 (>60) 07/26/17 06:06 BUN/Creatinine Ratio 16.9 (8-20) 07/26/17 06:06 Glucose 107 mg/dL (70-100) H 07/26/17 06:06 Lactic Acid 0.5 mmol/L (0.5-2.0) 07/24/17 03:55 Calcium 8.3 mg/dL (8.6-10.3) L 07/26/17 06:06 Magnesium 2.2 mg/dL (1.9-2.7) 07/23/17 13:19 Total Bilirubin 0.70 mg/dL (0.2-1.0) 07/23/17 13:19 Direct Bilirubin 0.30 mg/dL (0.03-0.18) H 07/23/17 13:19 Indirect Bilirubin 0.4 mg/dL (0.3-1.0) 07/23/17 13:19 AST 17 U/L (13-39) 07/23/17 13:19 ALT 11 U/L (7-52) 07/23/17 13:19 Alkaline Phosphatase 96 U/L (34-104) 07/23/17 13: Troponin I 0.06 ng/mL (<0.04) H* 07/25/17 21:15 Total Protein 5.8 g/dL (6.4-8.9) L 07/23/17 13:19 Albumin 3.2 g/dL (3.2-5.2) 07/23/17 13: Globulin 2.6 g/dL (2-4) 07/23/17 13: Albumin/Globulin Ratio 1.2 (1-3) 07/23/17 13: Urine Color Yellow 07/23/17 16: Urine Appearance Cloudy 07/23/17 16: Urine pH 6.0 (5-9) 07/23/17 16: Ur Specific [place] 1.010 (1.010-1.030) 07/23/17 16: Urine Protein Negative (Negative) 07/23/17 16: Urine Ketones 1+ (Negative) A 07/23/17 16: Urine Blood 1+ (Negative) A 07/23/17: Urine Nitrate Negative (Negative) 07/23/17: Urine Bilirubin Negative (Negative) 07/23/17 16: Urine Urobilinogen Negative (Negative) 07/23/17 16: Ur Leukocyte Esterase 1+ (Negative) A 07/23/17 16: Urine WBC (Auto) Trace(0-5/hpf) (Absent) 07/23/17 16: Urine RBC (Auto) 2+(6-10/hpf) (Absent) A 07/23/17 16:19 Ur Squamous Epith Cells Present (Absent) A 07/23/17 16:19 Ur Renal Epithelial Cell Present (Absent) A 07/23/17 16:19 Urine Bacteria 1+ (Absent) A 07/23/17 16:19 Hyaline Casts Present (Absent) A 07/23/17 16:19 Urine Glucose Negative (Negative) 07/23/17 16:19 General; Well appearing, NAD, in good spirits LLE: Dressing changed. Incision CDI without erythema or discharge. Immobilizer remains in place. Sensation intact distally. DF/PF intact. 2+ dp/pt pulse. Assessment: []s/p left total hip arthroplasty Plan: []wbat lle with hip precautions pt/ot Supratherapeutic on coumadin, hold tonight [facility] medicine, cardio care
[2017-07-27] MEDS: Acetaminophen TAB* 325 MG PO PRN (00:09)
[2017-07-27 05:13] LABS: Hematocrit 27 % (35-47); Hemoglobin 8.9 g/dl (12.0-16.0); Mean Corpuscular HGB Conc 33 g/dl (31-36); Mean Corpuscular Hemoglobin 30 pg (27-31); Mean Corpuscular Volume 91 fL (80-97); Mean Platelet Volume 8.2 um3 (7.4-10.4); Platelet Count 344 10^3/ul (150-450); Red Blood Count 2.97 10^6/ul (4.0-5.4); Red Cell Distribution Width 15 % (10.5-15); White Blood Count 10.1 10^3/ul (3.5-10.8)
[2017-07-27] MEDS: Cefepime 2 GM in Dextrose(*) 2 GM/50 ML BAG IV SCH (05:14)
[2017-07-27] MEDS: Diltiazem TAB* 30 MG PO SCH ×2 (05:14→11:56)
[2017-07-27 05:20] LABS: INR 2.97 (0.77-1.02)
[2017-07-27 05:28] LABS: EGFR Non-African American 94.3 (>60)
[2017-07-27] MEDS: Omeprazole CAP* 20 MG PO SCH (09:29)
[2017-07-27] MEDS: POTASSIUM GLUCONATE PO SCH (09:30)
[2017-07-27] MEDS: Magnesium Hydroxide LIQ* 30 ML UDC PO SCH (09:30)
[2017-07-27] MEDS: Docusate CAP* 100 MG PO SCH (09:30)
--- NOTE | 2017-07-27 10:18 | PN ---
Progress Note - Progress Note Date of Service: 07/27/17 SOAP: Subjective: 67 y/o s/p L total hip revision 07/20/[address] Beverly. Patient doing well, working well with PT, no MS changes, eager for D/C home, many questions re: a fib occurance, follow up. VSS, afebrile overnight (tmax 99.9). Objective: General- Well appearing, NAD, AO, sitting in chair comfortably. MSK- LLE- DF/PF +, Dressing changed, no odor, erythema, minimal drainage, serous , from distal aspect of wound. minimally tender to palpation. Rises from chair easily. Vital Signs Temp 98.0 F 07/27/17 03:44 Pulse 74 07/27/17 03:44 Resp 20 07/27/17 03:44 BP 110/63 07/27/17 03:44 Pulse Ox 97 07/27/17 03:44 Intake & Output 07/26/17 07/27/17 07/27/17 18:59 06:59 18:59 Intake Total 1520 2174 400 Output Total 0 400 Balance 1520 1774 400 Intake: IV Fluids 1424 ABX - CEFEPIME 184 NS (0.9%) 1240 Oral 1520 750 400 Output: Urine 0 400 Other: Estimated Void Medium Medium Medium # Voids 1 2 Assessment: Stable 67 y/o s/p L total hip revision 07/20/[address] Beverly. Plan: - DVT prophylaxis post-op and w/ recent A fib- coumadin, INR target 2-3. - Continue PT/ OT - Follow up with Dr. Beverly within 10-14 days post-op - H&H - stable - post-op IV ABX - Completed - UTI/ Sepsis- On cefepime. URine cx's sensitive, no MRSA. Vanco discontinued. - Knee Brace- only needed when in bed, OK to remove at other times - Dr. Hanson consulted re: a fib/ cardiac follow up and medications for D/C. - Possible D/C today pending hospitalist clearance. Acetaminophen (Tylenol Tab*) 650 mg PO Q4H PRN PRN Reason: PAIN OR TEMPERATURE Last Admin: 07/27/17 00:09 Dose: 650 mg Hydrocodone Bitart/Acetaminophen ([place] 5-325 Tab*) 1 tab PO Q3H PRN PRN Reason: PAIN - MODERATE Last Admin: 07/25/17 13:59 Dose: 1 tab Alprazolam (Xanax Tab*) 0.25 mg PO BID PRN PRN Reason: ANXIETY Last Admin: 07/25/17 21:17 Dose: 0.25 mg Bisacodyl (Dulcolax Supp*) 10 mg GA DAILY PRN PRN Reason: constipation Calcium Carbonate (Tums*) 500 mg PO Q4H PRN PRN Reason: INDIGESTION Last Admin: 07/25/17 09:42 Dose: 500 mg Cyclobenzaprine HCl (Flexeril Tab*) 5 mg PO TID PRN PRN Reason: SPASMS Diltiazem HCl (Cardizem Tab*) 30 mg PO Q6HR [facility] Last Admin: 07/27/17 05:14 Dose: 30 mg Diphenhydramine HCl (Benadryl Iv*) 12.5 mg IV Q6H PRN PRN Reason: PRURITIS Docusate Sodium (Colace Cap*) 100 mg PO BID [facility] Last Admin: 07/27/17 09:30 Dose: Not Given Hydromorphone HCl (Dilaudid Tab*) 2 mg PO Q6H PRN PRN Reason: PAIN Cefepime HCl (Maxipime 2 Gm In Dextrose Duplex (*)) 2 gm in 50 mls @ 100 mls/ hr IV Q12H [facility] Last Admin: 07/27/17 05:14 Dose: 100 mls/hr Sodium Chloride (Ns 0.9% 1000 Ml*) 1,000 mls @ 50 mls/hr IV PER RATE [facility] Last Admin: 07/26/17 20:11 Dose: 50 mls/hr Lactulose (Lactulose*) 30 ml PO Q6H PRN PRN Reason: constipation Magnesium Hydroxide (Milk Of Magnesia Liq*) 30 ml PO BID [facility] Last Admin: 07/27/17 09:30 Dose: Not Given Magnesium Hydroxide (Milk Of Magnesia Liq*) 30 ml PO Q6H PRN PRN Reason: constipation Morphine Sulfate (Morphine Vial*) 2 mg IV Q2H PRN PRN Reason: PAIN Non-Formulary Medication (Potassium Gluconate [Potassium]) 270 mg PO QAM [facility] Last Admin: 07/27/17 09:30 Dose: Not Given Omeprazole (Prilosec Cap*) 40 mg PO QAM [facility] Last Admin: 07/27/17 09:29 Dose: 40 mg Ondansetron HCl (Zofran Inj*) 4 mg IV Q6H PRN PRN Reason: nausea Last Admin: 07/25/17 09:42 Dose: 4 mg Ondansetron HCl (Zofran Tab*) 4 mg PO Q6H PRN PRN Reason: NAUSEA Last Admin: 07/23/17 08:47 Dose: 4 mg Pharmacy Profile Note (Coumadin Per Pharmacy*) 1 note FOLLOW UP .PER PHARMACY PROTOC [place] PRN Reason: Protocol Polyethylene Glycol/Electrolytes (Miralax*) 17 gm PO DAILY PRN PRN Reason: Constipation Warfarin Sodium (Coumadin Tab(*)) 4 mg PO ONCE ONE Stop: 07/27/17 17:01
[2017-07-27] MEDS ORDERED: Metoprolol Tartrate TAB* 25 MG ONE (11:53)
[2017-07-27] MEDS: Potassium Chlor TAB* 10 MEQ TAB.ER PO SCH ×2 (11:56→14:29)
[2017-07-27] MEDS: Metoprolol Tartrate TAB* 25 MG PO SCH ×2 (11:57→14:29)
--- NOTE | 2017-07-27 12:30 | PN ---
Subjective Date of Service: 07/27/17 Interval History: Adequate pain control with APAP at most. No new c/o. No palpitations, cough, SOB. She states she has swelling of her legs in the past after taking metoprolol. Objective Active Medications: Acetaminophen (Tylenol Tab*) 650 mg PO Q4H PRN PRN Reason: PAIN OR TEMPERATURE Last Admin: 07/27/17 00:09 Dose: 650 mg Hydrocodone Bitart/Acetaminophen ([place] 5-325 Tab*) 1 tab PO Q3H PRN PRN Reason: PAIN - MODERATE Last Admin: 07/25/17 13:59 Dose: 1 tab Alprazolam (Xanax Tab*) 0.25 mg PO BID PRN PRN Reason: ANXIETY Last Admin: 07/25/17 21:17 Dose: 0.25 mg Bisacodyl (Dulcolax Supp*) 10 mg ID DAILY PRN PRN Reason: constipation Calcium Carbonate (Tums*) 500 mg PO Q4H PRN PRN Reason: INDIGESTION Last Admin: 07/25/17 09:42 Dose: 500 mg Cyclobenzaprine HCl (Flexeril Tab*) 5 mg PO TID PRN PRN Reason: SPASMS Diltiazem HCl (Cardizem Tab*) 30 mg PO Q6HR [facility] Last Admin: 07/27/17 11:56 Dose: 30 mg Diphenhydramine HCl (Benadryl Iv*) 12.5 mg IV Q6H PRN PRN Reason: PRURITIS Docusate Sodium (Colace Cap*) 100 mg PO BID [facility] Last Admin: 07/27/17 09:30 Dose: Not Given Cefepime HCl (Maxipime 2 Gm In Dextrose Duplex (*)) 2 gm in 50 mls @ 100 mls/ hr IV Q12H [facility] Last Admin: 07/27/17 05:14 Dose: 100 mls/hr Lactulose (Lactulose*) 30 ml PO Q6H PRN PRN Reason: constipation Magnesium Hydroxide (Milk Of Magnesia Liq*) 30 ml PO BID [facility] Last Admin: 07/27/17 09:30 Dose: Not Given Magnesium Hydroxide (Milk Of Magnesia Liq*) 30 ml PO Q6H PRN PRN Reason: constipation Metoprolol Tartrate (Lopressor Tab*) 12.5 mg PO Q12HR [facility] Non-Formulary Medication (Potassium Gluconate [Potassium]) 270 mg PO QAM [facility] Last Admin: 07/27/17 09:30 Dose: Not Given Omeprazole (Prilosec Cap*) 40 mg PO QAM [facility] Last Admin: 07/27/17 09:29 Dose: 40 mg Ondansetron HCl (Zofran Inj*) 4 mg IV Q6H PRN PRN Reason: nausea Last Admin: 07/25/17 09:42 Dose: 4 mg Ondansetron HCl (Zofran Tab*) 4 mg PO Q6H PRN PRN Reason: NAUSEA Last Admin: 07/23/17 08:47 Dose: 4 mg Pharmacy Profile Note (Coumadin Per Pharmacy*) 1 note FOLLOW UP .PER PHARMACY PROTOC [facility] PRN Reason: Protocol Polyethylene Glycol/Electrolytes (Miralax*) 17 gm PO DAILY PRN PRN Reason: Constipation Potassium Chloride (Klor Con Er Tab*) 20 meq PO Q2H [facility] Stop: 07/27/17 14:00 Last Admin: 07/27/17 11:56 Dose: 20 meq Oxygen Devices in Use Now: None Appearance: Alert, in a chair. In good spirits. Looks comfortable. Eyes: No Scleral Icterus Respiratory: Symmetrical Chest Expansion and Respiratory Effort, Clear to Auscultation, Clear to Percussion Cardiovascular: RRR, No Edema, - - 1/6 systolic murmur RSB. Extremities: No Edema, No Clubbing, Cyanosis, - - L leg in immobilizer. Skin: No Rash or Ulcers, No Nodules or Sclerosis, - Neurological: Alert and Oriented x 3, NL Sensation Result Diagrams: 07/27/17 04:55 07/27/17 04:55 Microbiology and Other Data: Microbiology 07/23/17 16:35 Aerobic Blood Culture - Preliminary Blood Venous No Growth Day 3 Anaerobic Blood Culture - Preliminary No Growth Day 3 07/23/17 16:19 Urine Culture - Final Urine Enterobacter Cloacae Escherichia Coli 07/20/17 13:50 Anaerobic Culture - Final Wound - Hip Left No Growth Day 4 07/20/17 13:50 Gram Stain - Final Hip Left Wound Culture - Final No Growth Day 4 07/23/17 16:30 Nasal Screen MRSA (PCR)(CHARLES) - Final Nasal Mrsa Not Detected Assess/Plan/Problems-Billing Assessment: - Patient Problems (1) Atrial fibrillation Current Visit: Yes Status: Acute Code(s): I48.91 - UNSPECIFIED ATRIAL FIBRILLATION SNOMED Code(s): 23009942 Comment: Had short episode last night. Continue warfarin with INR target 2- 3 until she is seen by a [facility] weaver. Metoprolol 12. 5 mg bid, first dose here. Outpt long-term cardiac monitoring is a consideration. She should fup with Dr. Steven Guzman next week and ask about a cardiology referral. (2) Positive urine culture Current Visit: Yes Status: Acute Code(s): R82.79 - OTHER ABNORMAL FINDINGS ON MICROBIOLOG EXAMINATION OF URINE SNOMED Code(s): 914552589 Comment: Although asymptomatic, she had a fever and confusion )other casues of these were also present) and has hardware inplace. Agree with completing a course of antibiotics with ciprofloxacin as an outpt. (3) Hypertension Current Visit: No Status: Acute Code(s): I10 - ESSENTIAL (PRIMARY) HYPERTENSION SNOMED Code(s): 75044919 Comment: Continue to hold HCTZ and Losartan. Metoprolol may be enough for her BP. Further medication changes to be determined as outpt. (4) Hypokalemia Current Visit: Yes Status: Acute Code(s): E87.6 - HYPOKALEMIA SNOMED Code( s): 76408881 Comment: 2 doses KCL 20 meq each ordered. If she continue off her diuretic likely this is enough KCL.
[2017-07-27 15:23] VITALS: BP 129/56
[2017-07-27] MEDS ORDERED: Warfarin TAB(*) 4 MG PO ONE (17:00)
== END 2017-07-27 15:20 | disposition home health service (06) | DRG 466 ==
LOC: AA 10:56 → SSU 17:21 → ICU 07-23 14:30 → MEDTELE 07-26 02:18
PROVIDERS: ADMIT Orthopaedic Surgery Adult Reconstructive Orthopaedic Surgery; ATTEND Orthopaedic Surgery Adult Reconstructive Orthopaedic Surgery
PROC: 0SPB0JZ Removal of Synthetic Substitute from Left Hip Joint, Open Approach (ICD-10-PCS; 2017-07-20)
PROC: 0SRB0JA Replacement of Left Hip Joint with Synthetic Substitute, Uncemented, Open Approach (ICD-10-PCS; principal; 2017-07-20 12:00)
DX: T84.021A Dislocation of internal left hip prosthesis, initial encounter (principal); A41.9 Sepsis, unspecified organism; R65.21 Severe sepsis with septic shock; F05 Delirium due to known physiological condition; N39.0 Urinary tract infection, site not specified; Y79.3 Surgical instruments, materials and orthopedic devices (including sutures) associated with adverse incidents; F41.9 Anxiety disorder, unspecified; I10 Essential (primary) hypertension; I48.91 Unspecified atrial fibrillation; R11.2 Nausea with vomiting, unspecified; D64.9 Anemia, unspecified; E87.6 Hypokalemia; E78.5 Hyperlipidemia, unspecified; Z90.710 Acquired absence of both cervix and uterus; Z88.8 Allergy status to other drugs, medicaments and biological substances; Z80.0 Family history of malignant neoplasm of digestive organs; Y92.009 Unspecified place in unspecified non-institutional (private) residence as the place of occurrence of the external cause; Z82.3 Family history of stroke; Q65.89 Other specified congenital deformities of hip
CPT/HCPCS: 36415; 70450; 71045; 80048; 80076; 81003; 81015; 83605; 83735; 84484; 85014; 85018; 85025; 85027; 85049; 85610; 87040; 87070; 87073; 87077; 87086; 87186; 87205; 87641; 88300; 93005; 93306; 94760; A9270-GY; C1713; C1776; C8929; G8978-GP-CJ; G8978-GP-CK; G8978-GP-CL; G8979-GP-CI; G8987-GO-CJ; G8987-GO-CK; G8988-GO-CI; J0282; J0690; J0692; J1100; J1650; J2250; J2310; J2405; J2704; J2710; J3010; J3370

== ENCOUNTER 2017-08-21 12:18 | Inpatient (IN) | payer MEDICARE ==
[2017-08-21] MEDS ORDERED: NS 0.9% 1000 ML* 1,000 ML IV ONE (12:30)
[2017-08-21 14:28] LABS: Hematocrit 37 % (35-47); Hemoglobin 11.5 g/dl (12.0-16.0); Mean Corpuscular HGB Conc 31 g/dl (31-36); Mean Corpuscular Hemoglobin 28 pg (27-31); Mean Corpuscular Volume 90 fL (80-97); Mean Platelet Volume 8.1 um3 (7.4-10.4); Platelet Count 409 10^3/ul (150-450); Red Cell Distribution Width 17 % (10.5-15); White Blood Count 24.5 10^3/ul (3.5-10.8)
[2017-08-21 14:41] LABS: INR 1.16 (0.77-1.02)
[2017-08-21 14:50] LABS: ABS Basophils 0.1 10^3/ul (0-0.2); ABS Eosinophils 0 10^3/ul (0-0.6); ABS Lymphocytes 0.8 10^3/ul (1.0-4.8); ABS Monocytes 1.5 10^3/ul (0-0.8); ABS Neutrophils 22.1 10^3/ul (1.5-7.7); ABS Nucleated RBC 0 10^3/ul; Eosinophil % 0.1 % (0-6); Lymphocyte % 3.1 % (25-47); Nucleated Red Blood Cells % 0
[2017-08-21 16:14] LABS: EGFR Non-African American 92.6 (>60)
[2017-08-21] MEDS ORDERED: Iohexol 350* (CONTRAST) 500 ML MDV IV ONE (16:17)
--- NOTE | 2017-08-21 17:15 | RAD ---
INDICATION: Chest pain. Short of breath. Evaluate for pulmonary embolus. Short of breath. Tachycardia. COMPARISON: CTA chest October 16, 2016 TECHNIQUE: Axial source images were obtained from the thoracic inlet to the hemidiaphragms following administration of [address] angiographic technique was utilized. Coronal and sagittal reconstructed images were acquired. CHEST FINDINGS: Neck/thyroid: The visualized neck to include the thyroid appear normal. Chest wall: There are no acute abnormalities of the bony thorax or chest wall. There are bilateral breast implants There is no supraclavicular, infraclavicular, or axillary lymphadenopathy. Lungs : There are no pulmonary parenchymal masses or infiltrates. The pulmonary interstitium appears normal. There are no endobronchial lesions. Cardiomediastinal structures: There is no CT evidence of acute pulmonary embolic disease. The heart is enlarged. There is a small pericardial effusion. There is no evidence of aortic aneurysm or dissection. There is no mediastinal or hilar adenopathy. The esophagus appears normal. Pleura : There are no pleural-based masses or effusions. Other: None. IMPRESSION: VASCULAR CONGESTION WITH CARDIOMEGALY, INTERSTITIAL EDEMA, BILATERAL PLEURAL EFFUSIONS. THERE IS A SMALL PERICARDIAL EFFUSION. THERE IS ALSO BIBASILAR COMPRESSION ATELECTASIS. THERE IS NO CT EVIDENCE OF ACUTE PULMONARY EMBOLIC DISEASE. SUGGEST A FOLLOW-UP CHEST X-RAY.
[2017-08-21] MEDS ORDERED: Nitroglycerin 2% OINT* 1 GM PAK TOPICAL ONE (17:20)
[2017-08-21] MEDS ORDERED: Nitroglycerin TAB 0.4 MG* 0.4 MG TAB SL ONE (17:20)
[2017-08-21] MEDS ORDERED: Furosemide IV* 10 MG/ML 10 ML VIAL (100 MG) IV ONE (17:21)
--- NOTE | 2017-08-21 18:00 | RAD ---
INDICATION: Short of breath COMPARISON: CTA chest August 21, 2017; chest x-ray July 24, 2017 TECHNIQUE: An AP portable view obtained at 1753 hours is submitted. FINDINGS: Bones/Soft Tissues: There are no acute bony findings. Cardiomediastinal: The cardiomediastinal silhouette is normal. Lungs: There is bibasilar infiltrates or atelectasis. Pleura: Small moderate bilateral pleural effusions. Other: None IMPRESSION: VASCULAR CONGESTIVE CHANGES. SUGGEST FOLLOW-UP TO RESOLUTION.
--- NOTE | 2017-08-21 18:33 | ED ---
Niurka Solis Gabriel, scribed for Enio Chaney MD on 08/21/17 at 1231 . Shortness of Breath - HPI Summary HPI Summary: This patient is a 67 year old F BIBA to [facility] with a chief complaint of SOB and back pain that she woke up this morning with. Pt was seen at [facility] and was sent her for a heart wake up. The patient rates the pain 3/10 in severity. Symptoms alleviated by use of her rescue inhaler. Pt used it 4 times. Patient reports productive cough. Patient denies CP, fever, LE pain and swelling. - History of Current Complaint Time Seen by Provider: 08/21/17 12:20 Hx Obtained From: Patient, Family/Assistant Director Of Public Works Onset/Duration: Lasting Hours, Still Present Timing: Constant Current Severity: Mild Dyspnea At: Exertion Associated Signs & Symptoms: Cough (Productive) - Allergy/Home Medications Allergies/Adverse Reactions: Allergies Allergy/AdvReac Type Severity Reaction Status Date / Time metoprolol [From Toprol XL] Allergy Unknown Verified 07/20/17 11:10 Reaction Details olmesartan [From Benicar] Allergy Unknown Verified 07/20/17 11:10 Reaction Details ramipril [From Altace] Allergy Unknown Verified 07/20/17 11:10 Reaction Details fentanyl AdvReac Severe Hallucinati Verified 07/20/17 11:10 ons tramadol AdvReac Severe Hallucinati Verified 07/20/17 11:10 ons narcotics AdvReac Severe Nausea And Uncoded 07/20/17 11:10 Vomiting Home Medications: Home Medications Losartan TAB* [Cozaar TAB*] 25 mg PO DAILY 08/21/17 [History Confirmed 08/21/17] Spironolactone TAB* [Aldactone TAB*] 25 mg PO DAILY 08/21/17 [History Confirmed 08/21/17] PMH/Surg Hx/FS Hx/Imm Hx Endocrine/Hematology History: Denies: Hx Bone Marrow Disease, Hx Sickle Cell Disease, Hx Anemia Cardiovascular History: Reports: Hx Hypercholesterolemia, Hx Hypertension Respiratory History: Reports: Hx Pneumonia - few years ago Denies: Hx Sleep Apnea GI History: Reports: Hx Gastroesophageal Reflux Disease History: Reports: Other Problems/Disorders - STRESS INC WHEN SNEEZING/ COUGHING Musculoskeletal History: Reports: Hx Arthritis, Hx Orthopedic Injury - current left hip fracture, Other Musculoskeletal History - shoulder surgery 20 years ago ; left hip fracture Sensory History: Reports: Hx Contacts or Glasses Denies: Hx Cataracts, Hx Legally Blind, Hx Deafness, Hx Hearing Aid Opthamlomology History: Reports: Hx Contacts or Glasses Denies: Hx Cataracts, Hx Legally Blind Psychiatric History: Reports: Hx Anxiety, Hx Depression, Hx Panic Disorder Denies: Other Psychiatric Issues/Disorders - Cancer History Hx Chemotherapy: No Hx Radiation Therapy: No - Surgical History Surgery Procedure, Year, and Place: hysterectomy 15 years ago [facility]; left shoulder 20 years ago [facility] Hx Anesthesia Reactions: Yes - vomiting - Immunization History Date of Influenza Vaccine: denies Infectious Disease History: Denies: Hx Clostridium Difficile, Hx Hepatitis, Hx Human Immunodeficiency Virus (HIV), Hx of Known/Suspected MRSA, Hx Shingles, Hx Tuberculosis, History Other Infectious Disease - Family History Known Family History: Positive: Blood Disorder - Blood clotting in mother, Other - Cancer - Social History Lives: With Family Alcohol Use: Rare Hx Substance Use: No Substance Use Type: Reports: None Hx Tobacco Use: Yes Smoking Status (MU): Never Smoked Tobacco Have You Smoked in the Last Year: No Review of Systems Negative: Fever Negative: Chest Pain Positive: Shortness Of Breath, Cough Musculoskeletal: Negative - LE pain Positive: Other - back pain . Negative: Edema All Other Systems Reviewed And Are Negative: Yes Physical Exam - Summary Physical Exam Summary: Appearance: Well appearing, no pain distress Skin: warm, dry, reflects adequate perfusion Head/face: normal Eyes: EOMI, VIKTOR ENT: normal Neck: supple, non-tender, no JVD Respiratory: CTA, breath sounds present Cardiovascular: tachy but regular, pulses symmetrical Abdomen: non-tender, soft Bowel Sounds: present Musculoskeletal: normal, strength/ROM intact Neuro: normal, sensory motor intact, A&Ox3 Triage Information Reviewed: Yes Vital Signs On Initial Exam: Initial Vitals Temp Pulse Resp BP Pulse Ox 100.2 F 109 22 97/75 95 08/21/17 12:28 08/21/17 12:28 08/21/17 12:28 08/21/17 12:28 08/21/17 12:28 Vital Signs Reviewed: Yes Diagnostics - Vital Signs Vital Signs Temp Pulse Resp BP Pulse Ox 08/21/17 13:00 104 22 94 08/21/17 12:48 107 21 129/79 99 08/21/17 12:47 107 17 97 08/21/17 12:28 100.2 F 109 22 97/75 95 - Laboratory Lab Results: Lab Results 08/21/17 08/21/17 08/21/17 Range/Units 14:16 14:16 14:16 WBC 24.5 H (3.5-10.8) 10^3/ul RBC 4.10 (4.0-5.4) 10^6/ul Hgb 11.5 L (12.0-16.0) g/dl Hct 37 (35-47) % MCV 90 (80-97) fL MCH 28 (27-31) pg MCHC 31 (31-36) g/dl RDW 17 H (10.5-15) % Plt Count 409 (150-450) 10^3/ul MPV 8.1 (7.4-10.4) um3 Neut % (Auto) 90.3 H (38-83) % Lymph % (Auto) 3.1 L (25-47) % Sutton % (Auto) 6.2 (0-7) % Eos % (Auto) 0.1 (0-6) % Baso % (Auto) 0.3 (0-2) % Absolute Neuts (auto) 22.1 H (1.5-7.7) 10^3/ul Absolute Lymphs (auto) 0.8 L (1.0-4.8) 10^3/ul Absolute Monos (auto) 1.5 H (0-0.8) 10^3/ul Absolute Eos (auto) 0 (0-0.6) 10^3/ul Absolute Basos (auto) 0.1 (0-0.2) 10^3/ul Absolute Nucleated RBC 0 10^3/ul Nucleated RBC % 0 INR (Anticoag Therapy) (0.77-1.02) APTT (26.0-36.3) seconds Sodium 141 (139-145) mmol/L Potassium 3.6 (3.5-5.0) mmol/L Chloride 103 (101-111) mmol/L Carbon Dioxide 25 (22-32) mmol/L Anion Gap 13 H (2-11) mmol/L BUN 18 (6-24) mg/dL Creatinine 0.64 (0.51-0.95) mg/dL Est GFR ( Amer) 119.0 (>60) Est GFR (Non-Af Amer) 92.6 (>60) BUN/Creatinine Ratio 28.1 H (8-20) Glucose 91 (70-100) mg/dL Calcium 9.2 (8.6-10.3) mg/dL Total Bilirubin 1.20 H (0.2-1.0) mg/dL AST 13 (13-39) U/L ALT 16 (7-52) U/L Alkaline Phosphatase 141 H (34-104) U/L Troponin I 0.04 H* (<0.04) ng/mL B-Natriuretic Peptide 196 H ( - 100) pg/mL Total Protein 6.3 L (6.4-8.9) g/dL Albumin 3.4 (3.2-5.2) g/dL Globulin 2.9 (2-4) g/dL Albumin/Globulin Ratio 1.2 (1-3) 05/15/18 Range/Units 14:17 WBC (3.5-10.8) 10^3/ul RBC (4.0-5.4) 10^6/ul Hgb (12.0-16.0) g/dl Hct (35-47) % MCV (80-97) fL MCH (27-31) pg MCHC (31-36) g/dl RDW (10.5-15) % Plt Count (150-450) 10^3/ul MPV (7.4-10.4) um3 Neut % (Auto) (38-83) % Lymph % (Auto) (25-47) % Sutton % (Auto) (0-7) % Eos % (Auto) (0-6) % Baso % (Auto) (0-2) % Absolute Neuts (auto) (1.5-7.7) 10^3/ul Absolute Lymphs (auto) (1.0-4.8) 10^3/ul Absolute Monos (auto) (0-0.8) 10^3/ul Absolute Eos (auto) (0-0.6) 10^3/ul Absolute Basos (auto) (0-0.2) 10^3/ul Absolute Nucleated RBC 10^3/ul Nucleated RBC % INR (Anticoag Therapy) 1.16 H (0.77-1.02) APTT 27.8 (26.0-36.3) seconds Sodium (139-145) mmol/L Potassium (3.5-5.0) mmol/L Chloride (101-111) mmol/L Carbon Dioxide (22-32) mmol/L Anion Gap (2-11) mmol/L BUN (6-24) mg/dL Creatinine (0.51-0.95) mg/dL Est GFR ( Amer) (>60) Est GFR (Non-Af Amer) (>60) BUN/Creatinine Ratio (8-20) Glucose (70-100) mg/dL Calcium (8.6-10.3) mg/dL Total Bilirubin (0.2-1.0) mg/dL AST (13-39) U/L ALT (7-52) U/L Alkaline Phosphatase (34-104) U/L Troponin I (<0.04) ng/mL B-Natriuretic Peptide ( - 100) pg/mL Total Protein (6.4-8.9) g/dL Albumin (3.2-5.2) g/dL Globulin (2-4) g/dL Albumin/Globulin Ratio (1-3) Result Diagrams: 08/21/17 14:16 08/21/17 14:16 Lab Statement: Any lab studies that have been ordered have been reviewed, and results considered in the medical decision making process. - CT CTA Chest CT Interpretation Completed By: Radiologist - VASCULAR CONGESTION WITH CARDIOMEGALY, INTERSTITIAL EDEMA, BILATERAL PLEURAL EFFUSIONS. THERE IS A SMALL PERICARDIAL EFFUSION. THERE IS ALSO BIBASILAR COMPRESSION ATELECTASIS. THERE IS NO CT EVIDENCE OF ACUTE PULMONARY EMBOLIC DISEASE. SUGGEST A FOLLOW-UP CHEST X- RAY. ED physician has reviewed this radiology report. - EKG 1243 Cardiac Rate: Tachycardia EKG Rhythm: Sinus Tachycardia - at [address] Segment: Non-Specific EKG Interpretation: nml axis, nml intervals Course/Dx - Course Course Of Treatment: Patient presented with right posterior scapular discomfort and shortness of breath began this morning. Her white blood cell count was elevated but her electrolytes were delayed by a significant amount of time. A CT scan was ordered sickly on arrival to ensure that there was no pulmonary embolus. The scan was delayed for a significant amount of time due to not having the creatinine back. She was given some fluids due to her tachycardia. She never was hypoxic even off oxygen. CT scan revealed bilateral pleural effusions and evidence for pulmonary edema. The x-ray was obtained following the CT scan. She has not had any chest pain through her stay. She did have aspirin prior to arrival 324 mg. She has no cardiac history. There is no peripheral edema. She had been given fluids during her stay. Now she is started on nitroglycerin, nitroglycerin paste, IV Lasix. Hospitalist was contacted and will evaluate the patient at bedside for admission. Her tachycardia remains but she is not dyspneic at present. - Diagnoses Differential Diagnosis/HQI/PQRI: Positive: CHF, COPD Exacerbation, IL, Pneumonia , Pneumothorax, Pulmonary Embolism, Pulmonary Edema Provider Diagnoses: CHF (congestive heart failure), Dyspnea - Physician Notifications Discussed Care of Patient With: Britney Lopez Time Discussed With Above Provider: 17:39 Instructed by Provider To: Admit As Inpatient - Critical Care Time Critical Care Time: 30-74 min - Critical care time is exclusive of separately billable procedures Discharge - Sign-Out/Discharge Documenting (check all that apply): Discharge/Admit/Transfer - admitted - Discharge Plan Condition: Fair Disposition: ADMITTED TO [facility] Referrals: Madhavi Guzman MD [Primary Care Provider] - - Billing Disposition and Condition Condition: FAIR [place] [place] The documentation as recorded by the Nuirka mims Gabriel accurately reflects the service I personally performed and the decisions made by , Enio Chaney MD.
[2017-08-21] MEDS ORDERED: Vancomycin per Pharmacy* NOTE FOLLOW UP PRN (20:16)
[2017-08-21] MEDS ORDERED: Vancomycin(*) 1,250 MG in NS 0.9% 250 ML* 250 ML IVPB ONE (20:30)
[2017-08-21] MEDS: Heparin VIAL(*) 5000 UNITS/ML VIAL (FIVE THOUSAND) SUBCUT SCH (20:59)
[2017-08-21] MEDS: Azithromycin IV(*) 500 MG in NS 0.9% 250 ML* 250 ML IVPB SCH (22:44)
[2017-08-21] MEDS ORDERED: Ondansetron SYRINGE* 4 MG/2 ML SYRINGE (from 40mg/20ml vial) IV PRN (23:15)
[2017-08-21] MEDS ORDERED: Potassium Chlor TAB* 20 MEQ TAB.ER PO ONE (23:47)
[2017-08-22] MEDS: Cefepime 2 GM in Dextrose(*) 2 GM/50 ML BAG IV SCH ×2 (00:10→11:06)
--- NOTE | 2017-08-22 00:31 | HP ---
HISTORY AND PHYSICAL: DATE OF ADMISSION: 08/21/17 PROVIDER: Pearl Estrada NP ATTENDING PHYSICIAN: Dr. Nowak* (report dictated by Pearl Estrada NP). CHIEF COMPLAINT: Shortness of breath. HISTORY OF PRESENT ILLNESS: Ms. Guerrier is a 67-year-old female with a past medical history of hypertension, GERD, and recent hospitalization. Recent hospitalization on 07/20/17 to 07/27/17 for a left hip arthroplasty complicated by new onset afib and UTI, who presents to the emergency room for shortness of breath. The patient reports that she initially did well at home, however 2 weeks after being home she then developed a consistent dry cough, in which she presented to [facility] and was diagnosed with bronchitis and put on "some antibiotics" that she is not able to remember. She also reports that she was started on prednisone due to have some noted wheezing. She reports that she initially felt better over the last week or two. She stopped her course of antibiotics and prednisone approximately 3 days ago and felt fine yesterday and the day before then this morning she awoke with a sharp intense pain in her mid back and was very short of breath. She presented back to [facility] where they were concerned and called an ambulance, and she came to [facility] for further evaluation. In the emergency department, she underwent a CTA, which showed no pulmonary embolism, but did revealed bilateral pleural effusions, vascular congestion cardiomegaly, interstitial edema and as well pericardial effusion along with bibasilar compression atelectasis. The patient initially in the emergency department was given a 1L of normal saline due to her noted tachycardia with a heart rate in the high 90s, low 100s and concern for sepsis. Per the primary nurse after she was given the 1 liter, her O2 sat went from 97% on room air down to 89%, and she was put on 2 L and then was given 60 mg of IV Lasix, and then due to her complaint of left chest wall pressure, she was given sublingual nitro and then placed on nitro paste. On evaluation in the emergency department, the patient was sitting up in bed, alert and oriented x3, in no acute distress. She reports that currently her shortness of breath feels much better. She is noted to have a heart rate in the 120s per the primary ER nurse, her heart rate seem to increase after she was given the liter of normal saline. She is not dyspneic and currently reports that the chest wall pain feels much better, reporting that this was new since arrival to the emergency department and reports that it is worse when she takes a deep breath in. She denies diaphoresis. She did have some nausea after she took the sublingual nitro and did vomit x1, but has not vomited since. She denies abdominal pain or diarrhea. The patient denies any recent fevers or chills at home. She reports a dry cough and denies any sputum production. Two weeks ago when she was treated for bronchitis, she also states she did not have any sputum production and had a dry cough only. She denies orthopnea. No lower extremity edema. No cardiac history in the past. [place] [address]; however, the patient does report that she was just on a long course of prednisone. She does have a troponin of 0.04; however, last hospitalization her troponin was slightly higher than this. Her EKG showing sinus tachycardia with a rate of 103. Hospital Medicine will admit the patient for possible congestive heart failure and concern for healthcare-acquired pneumonia. PAST MEDICAL HISTORY: 1. GERD. 2. Hypertension. 3. 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 4. Atrial fibrillation, newly diagnosed last hospitalization in July 2017. HOME MEDICATIONS: 1. Aldactone 25 mg p.o. daily. 2. Omeprazole 40 mg p.o. q.a.m. 3. Losartan 25 mg p.o. daily. ALLERGIES: 1. METOPROLOL (METOPROLOL-XL) 2. BENICAR. 3. RAMIPRIL. 4. FENTANYL. 5. TRAMADOL. 6. NARCOTICS. FAMILY HISTORY: History of colon cancer and stroke. SOCIAL HISTORY: Denies tobacco abuse. No alcohol use. No creational drug use. Patient currently lives with her son. She lists her daughter Kathie as her healthcare proxy, her number is [phone]. REVIEW OF SYSTEMS: A 14-point review of systems was performed. All the pertinent positives and negatives are mentioned in the history of present illness, otherwise negative. PHYSICAL EXAMINATION GENERAL APPEARANCE: A well-developed 67-year-old female, sitting up in emergency department stretcher. Alert and oriented x3, in no acute distress appears comfortable, good historian. VITAL SIGNS: Temperature 100.2, heart rate 120, respirations 22, O2 sat 97% on 2 L nasal cannula, and blood pressure 125/72. HEENT: Head is normocephalic and atraumatic. Pupils equal and reactive to light. Oropharynx is clear. Moist mucous membranes. No oropharyngeal erythema or exudate noted. NECK: Supple. No JVD noted. LYMPH: No cervical or supraclavicular lymphadenopathy. LUNGS: Bilateral lower lobes both are diminished, otherwise good aeration throughout. No accessory muscle use. CARDIAC: S1 and S2. Regular rate and rhythm. No murmur, rub or gallop appreciated. ABDOMEN: Soft, nontender, nondistended. Normal bowel sounds throughout. EXTREMITIES: No lower extremity edema noted. No clubbing, cyanosis or edema. MUSCULOSKELETAL: Strength is 5/5 throughout. Full range of motion in all extremities. NEURO: Cranial nerves II through XII are grossly intact. No focal deficits noted. DIAGNOSTIC STUDIES/LAB DATA: Sodium 141, potassium 3.6, chloride 103, carbon dioxide 25, anion gap 13, BUN 18, creatinine 0.64, glucose 91, calcium 9.2, total bilirubin 1.20, AST 13, ALT 16, alkaline phosphatase 141, troponin 0.04, BNP 196, total protein 6.3, albumin 33.4, INR 1.163. WBC 24.5, Hgb 11.5, Hct 37 , MCV 90, MCH 28, MCHC 31, RDW 17, platelet count 408. Chest x-ray, impression: Vascular congestion changes. Chest thoracic CTA, impression: Vascular congestion with cardiomegaly and interstitial edema, bilateral pleural effusions. There is a small pericardial effusion. There is also a bibasilar compression atelectasis. There is no CT evidence of acute pulmonary embolic disease. EKG, sinus tachycardia with a rate of 103. No ST changes noted. ASSESSMENT AND PLAN: Ms. Guerrier is a 67-year-old female with past medical history of hypertension, new onset atrial fibrillation, gastroesophageal reflux disease, history of unstable left hemiarthroplasty and multiple dislocations of recent hospitalization from 07/20/17 to 07/27/17 who presents today with report of a history of bronchitis 2 weeks ago treated with antibiotics in which antibiotics prednisone were finished approximately 3 days who then developed acute onset of shortness of breath. This morning found to have bilateral pleural effusions. 1. Bilateral pleural effusions. This appears to possibly be congestive heart failure. I do have concern that this could also be healthcare-acquired pneumonia. We will start the patient on empiric antibiotics with vancomycin, cefepime, and azithromycin. She received 1 L of normal saline in the emergency department and appeared that she became more tachycardic and hypoxic. She received Lasix 60 mg IV in the emergency department and now feels better. The plan will be to monitor her on telemetry. We will allow her to diurese and hold fluids at this time. She does have a leukocytosis of 24; however, she just was on a long course of prednisone therapy. She has no lactic acidosis and has felt better with the nitro and Lasix. At this time, we will plan to just monitor the patient on telemetry. We will obtain an echocardiogram. She does have a small noted pericardial effusion on CT and will evaluate this on echo. She does have a new atrial fibrillation and it is possible that she has been not rate controlled at home possibly causing congestive heart failure. BNP is 196. I have added on the CRP and a procalcitonin. Blood cultures were not obtained in the emergency department and plan to obtain those now prior to antibiotics. We will try to obtain sputum culture, send urine antigens for Streptococcus pneumoniae and legionella, daily weights. 2. Hypertension. Continue losartan and spironolactone. 3. Elevated troponin. Again this is lower than her last troponin last hospitalization. We will recheck a second troponin due to her complaint of chest pain. 4. Gastroesophageal reflux disease. Continue Prilosec. 5. Atrial fibrillation, appears to be in sinus tach. She currently is not on anticoagulation and she was told that this was discontinued due that this was postop atrial fibrillation and was recommended to follow up with cardiology as an out outpatient. We will continue to monitor her on telemetry and if she is noted to have paroxysmal atrial fibrillation, she will be a candidate for anticoagulation. 6. DVT prophylaxis. Heparin subcu. 7. Code status. Full code. TIME SPENT: Approximately 75 minutes was spent on this admission. PEARL ESTRADA, JIA [id number]/[facility] #: [id number] NEELIMA
[2017-08-22] MEDS: Heparin VIAL(*) 5000 UNITS/ML VIAL (FIVE THOUSAND) SUBCUT SCH ×2 (05:40→13:48)
[2017-08-22 06:29] LABS: Hematocrit 30 % (35-47); Hemoglobin 9.8 g/dl (12.0-16.0); Mean Corpuscular HGB Conc 32 g/dl (31-36); Mean Corpuscular Hemoglobin 28 pg (27-31); Mean Corpuscular Volume 88 fL (80-97); Mean Platelet Volume 8.4 um3 (7.4-10.4); Platelet Count 374 10^3/ul (150-450); Red Blood Count 3.46 10^6/ul (4.0-5.4); Red Cell Distribution Width 17 % (10.5-15); White Blood Count 19.6 10^3/ul (3.5-10.8)
[2017-08-22 06:47] LABS: EGFR Non-African American 74.8 (>60)
[2017-08-22 06:57] LABS: Monocytes % 6 % (0-7)
[2017-08-22] MEDS: Losartan TAB* 25 MG PO SCH (08:18)
[2017-08-22] MEDS: Spironolactone TAB* 25 MG PO SCH (08:18)
[2017-08-22] MEDS: Omeprazole CAP* 20 MG PO SCH (08:18)
[2017-08-22] MEDS ORDERED: Vancomycin(*) 1,000 MG in NS 0.9% 250 ML* 250 ML IVPB SCH (09:00)
--- NOTE | 2017-08-22 11:57 | RAD ---
HISTORY: Pleural effusions COMPARISONS: August 21, 2017 VIEWS: 4: Frontal dual-energy and lateral views of the chest. FINDINGS: CARDIOMEDIASTINAL SILHOUETTE: The cardiomediastinal silhouette is normal. ELODIA: The elodia are normal. PLEURA: There is blunting of the costophrenic angles bilaterally. LUNG PARENCHYMA: There is improved aeration of the lung bases. ABDOMEN: The upper abdomen is clear. There is no subphrenic gas. BONES AND SOFT TISSUES: Degenerative changes are noted of the shoulders OTHER: None. IMPRESSION: SMALL BILATERAL PLEURAL EFFUSIONS
[2017-08-22] MEDS ORDERED: Furosemide IV* 10 MG/ML 2 ML VIAL (20 MG) IV ONE (12:54)
--- NOTE | 2017-08-22 12:59 | PN ---
Subjective Date of Service: 08/22/17 Interval History: Patient reports she feels better today with less SOB. She continues to have some left chest wall pain worse when taking a deep breath in. She denies fever/ chills (noted to have low grade temp). She reports dry cough with no sputum production. She denies any urinary symptoms. No ALFARO/Rhinorrhea/Sore throat. No body aches. Denies any hip pain. Reports her appetite is improving. No N/V/D or abdominal pain She is noted to go in and out of afib - she is asymptomatic and denies feeling palpitations now or previously at home . Objective Active Medications: Acetaminophen (Tylenol Tab*) 650 mg PO Q6H PRN PRN Reason: FEVER/PAIN Heparin Sodium (Porcine) (Heparin Vial(*)) 5,000 units SUBCUT Q8HR [facility] Last Admin: 08/22/17 05:40 Dose: 5,000 units Azithromycin 500 mg/ Sodium (Chloride) 250 mls @ 250 mls/hr IVPB Q24H [facility] Last Admin: 08/21/17 22:44 Dose: 250 mls/hr Losartan Potassium (Cozaar Tab*) 25 mg PO DAILY [facility] Last Admin: 08/22/17 08:18 Dose: 25 mg Omeprazole (Prilosec Cap*) 40 mg PO QAM@0730 [facility] Last Admin: 08/22/17 08:18 Dose: 40 mg Ondansetron HCl (Zofran Syringe*) 4 mg IV Q6H PRN PRN Reason: NAUSEA Last Admin: 08/21/17 23:23 Dose: 4 mg Pharmacy Profile Note (Vancomycin Trough Check) 1 note FOLLOW UP 0830 ONE Stop: 08/23/17 08:31 Spironolactone (Aldactone Tab*) 25 mg PO DAILY [facility] Last Admin: 08/22/17 08:18 Dose: 25 mg Vital Signs - 8 hr 08/22/17 08/22/17 07:48 08:00 Temperature 100.0 F Pulse Rate 103 Respiratory 23 20 Rate Blood Pressure 124/67 (mmHg) O2 Sat by Pulse 94 Oximetry Oxygen Devices in Use Now: None Appearance: 67 yo well developed female sitting up in bed in NAD. A+OX3 Eyes: No Scleral Icterus, PERRLA Ears/Nose/Mouth/Throat: NL Teeth, Lips, Gums, Mucous Membranes Moist Neck: NL Appearance and Movements; NL JVP Respiratory: Symmetrical Chest Expansion and Respiratory Effort, - - diminished bases bilaterally otherwise good aeration throughout. No Accessory muscle use. Cardiovascular: NL Sounds; No Murmurs; No JVD, RRR, No Edema Abdominal: NL Sounds; No Tenderness; No Distention, No Hepatosplenomegaly Extremities: No Edema, No Clubbing, Cyanosis Skin: No Rash or Ulcers, No Nodules or Sclerosis Neurological: Alert and Oriented x 3, NL Sensation, NL Gait, NL Muscle Strength and Tone Lines/Tubes/Other Access: Clean, Dry and Intact Peripheral IV Nutrition: Taking PO's Result Diagrams: 08/22/17 06:10 08/22/17 06:10 Additional Lab and Data: Lab Results 08/21/17 08/21/17 08/21/17 Range/Units 14:16 14:16 14:16 WBC 24.5 H (3.5-10.8) 10^3/ul RBC 4.10 (4.0-5.4) 10^6/ul Hgb 11.5 L (12.0-16.0) g/dl Hct 37 (35-47) % MCV 90 (80-97) fL MCH 28 (27-31) pg MCHC 31 (31-36) g/dl RDW 17 H (10.5-15) % Plt Count 409 (150-450) 10^3/ul MPV 8.1 (7.4-10.4) um3 Neut % (Auto) 90.3 H (38-83) % Lymph % (Auto) 3.1 L (25-47) % [place] % (Auto) 6.2 (0-7) % Eos % (Auto) 0.1 (0-6) % Baso % (Auto) 0.3 (0-2) % Absolute Neuts (auto) 22.1 H (1.5-7.7) 10^3/ul Absolute Lymphs (auto) 0.8 L (1.0-4.8) 10^3/ul Absolute Monos (auto) 1.5 H (0-0.8) 10^3/ul Absolute Eos (auto) 0 (0-0.6) 10^3/ul Absolute Basos (auto) 0.1 (0-0.2) 10^3/ul Absolute Nucleated RBC 0 10^3/ul Nucleated RBC % 0 INR (Anticoag Therapy) (0.77-1.02) APTT (26.0-36.3) seconds Sodium 141 (139-145) mmol/L Potassium 3.6 (3.5-5.0) mmol/L Chloride 103 (101-111) mmol/L Carbon Dioxide 25 (22-32) mmol/L Anion Gap 13 H (2-11) mmol/L BUN 18 (6-24) mg/dL Creatinine 0.64 (0.51-0.95) mg/dL Est GFR ( Amer) 119.0 (>60) Est GFR (Non-Af Amer) 92.6 (>60) BUN/Creatinine Ratio 28.1 H (8-20) Glucose 91 (70-100) mg/dL Calcium 9.2 (8.6-10.3) mg/dL Total Bilirubin 1.20 H (0.2-1.0) mg/dL AST 13 (13-39) U/L ALT 16 (7-52) U/L Alkaline Phosphatase 141 H (34-104) U/L Troponin I 0.04 H* (<0.04) ng/mL B-Natriuretic Peptide 196 H ( - 100) pg/mL Total Protein 6.3 L (6.4-8.9) g/dL Albumin 3.4 (3.2-5.2) g/dL Globulin 2.9 (2-4) g/dL Albumin/Globulin Ratio 1.2 (1-3) 05/15/18 Range/Units 14:17 WBC (3.5-10.8) 10^3/ul RBC (4.0-5.4) 10^6/ul Hgb (12.0-16.0) g/dl Hct (35-47) % MCV (80-97) fL MCH (27-31) pg MCHC (31-36) g/dl RDW (10.5-15) % Plt Count (150-450) 10^3/ul MPV (7.4-10.4) um3 Neut % (Auto) (38-83) % Lymph % (Auto) (25-47) % [place] % (Auto) (0-7) % Eos % (Auto) (0-6) % Baso % (Auto) (0-2) % Absolute Neuts (auto) (1.5-7.7) 10^3/ul Absolute Lymphs (auto) (1.0-4.8) 10^3/ul Absolute Monos (auto) (0-0.8) 10^3/ul Absolute Eos (auto) (0-0.6) 10^3/ul Absolute Basos (auto) (0-0.2) 10^3/ul Absolute Nucleated RBC 10^3/ul Nucleated RBC % INR (Anticoag Therapy) 1.16 H (0.77-1.02) APTT 27.8 (26.0-36.3) seconds Sodium (139-145) mmol/L Potassium (3.5-5.0) mmol/L Chloride (101-111) mmol/L Carbon Dioxide (22-32) mmol/L Anion Gap (2-11) mmol/L BUN (6-24) mg/dL Creatinine (0.51-0.95) mg/dL Est GFR ( Amer) (>60) Est GFR (Non-Af Amer) (>60) BUN/Creatinine Ratio (8-20) Glucose (70-100) mg/dL Calcium (8.6-10.3) mg/dL Total Bilirubin (0.2-1.0) mg/dL AST (13-39) U/L ALT (7-52) U/L Alkaline Phosphatase (34-104) U/L Troponin I (<0.04) ng/mL B-Natriuretic Peptide ( - 100) pg/mL Total Protein (6.4-8.9) g/dL Albumin (3.2-5.2) g/dL Globulin (2-4) g/dL Albumin/Globulin Ratio (1-3) Microbiology and Other Data: Microbiology 08/22/17 04:00 Legionella Urinary Antigen - Final Urine Negative Legionella Antigen Streptococcus pneumoniae Ag Screen - Final Negative S. pneumo Antigen Assess/Plan/Problems-Billing Assessment: Ms. Guerrier is a 67-year-old female with past medical history of hypertension, new onset atrial fibrillation, gastroesophageal reflux disease, history of unstable left hemiarthroplasty and multiple dislocations of recent hospitalization from 07/20/17 to 07/27/17 who presents today with report of a history of "dry cough" dx bronchitis 2 weeks ago treated with antibiotics and prednisone which were finished approximately 3 days who then developed acute onset of shortness of breath. Found to have bilateral pleural effusions in the emergency room. - Patient Problems (1) Pleural effusion Comment: - Improving. suspect fluid overload. It is possible this is secondary to lots of fluid she was given last mnonth during her previous hospitalizations, or possibly secondary to paroxysmal afib. Todays f/u chest xray showing bilateral pleural effusions but much improved from admission. She was given 60 mg IV lasix on admission, responded well. Given lasix 20 mg IV x1 this am - differential is HCAP but no obvious pneumonia on chest xray. less likely but due to low grade temp and leukocytosis (which could from recent outpatient prednisione and/or viral illness) plan to continue abx until blood cx return. - Appreciate Pulmonology consult - agrees with assessment and plan. (2) Leukocytosis Comment: - unclear. Pt was just on a course of prednisone. Elevated CRP. No lactic acidosis . She also has low grade temp. - As stated above plan to continue IV Abx. - Awaiting blood and urine cx. Plan to xray left hip d/t recent hardware being placed. (3) Atrial fibrillation Comment: - new onset last hospitalization. She was sent home on Lovenox only and was told to follow up with outpt cardiology. - Paraoxysmal afib noted on tele monitoring. It is possible this was all driven by afib?? Side consulted Dr. Chase who read the patients ECHO - she is noted to be hyperdynamic - no pericardial effusion noted. Maybe some diastolic dysfunction but not clear. She reviewed tele strips and confirmed afib. Recommended no further lasix, start cardizem (pt has metoprolol allergies but she doesnt remember what ihappens), and start xarelto. Different anticoagulation options were discussed with the patient including the risks and benefits. The patient would like to start Xarelto. Pt states she understands the risks and benefits. Daughter was at bedside. - Follow up with Cardiology as an outpat (4) Hypertension Comment: Controlled Continue Aldactone and Losartan. (5) GERD (gastroesophageal reflux disease) Comment: Continue omeprazole. (6) Full code status (7) DVT prophylaxis Comment: HSQ
--- NOTE | 2017-08-22 15:03 | RAD ---
INDICATION: Sepsis recent left total hip replacement surgery. COMPARISON: Comparison is made with a prior study from August 03, 2017. TECHNIQUE: An AP view of the pelvis and frontal and lateral views of the left hip were obtained. FINDINGS: The patient is status post total left hip replacement surgery. The bones and prostheses are in normal alignment. There is no gross evidence for loosening. There appears be no significant change from the prior study. IMPRESSION: STATUS POST TOTAL LEFT HIP REPLACEMENT SURGERY, UNCHANGED.
[2017-08-22 16:31] LABS: Urine Appearance Clear; Urine Blood 1+ (Negative); Urine Color Straw; Urine Ketones Negative (Negative); Urine Protein Negative (Negative); Urine Specific Gravity 1.006 (1.010-1.030); Urine Urobilinogen Negative (Negative)
[2017-08-22] MEDS: cefTRIAXone VIAL(*) 500 MG in NS 0.9% 50 ML* 50 ML IVPB SCH (16:38)
[2017-08-22] MEDS: Rivaroxaban TAB(*) 20 MG TAB PO SCH (18:25)
[2017-08-22] MEDS: Diltiazem TAB* 30 MG PO SCH ×2 (18:25→23:54)
[2017-08-22] MEDS: Acetaminophen TAB* 325 MG PO PRN (19:24)
[2017-08-22] MEDS ORDERED: Diltiazem IV* 5 MG/ML 5 ML VIAL (for loading dose/IV Push) (25 MG) IV SLOW PU ONE (20:36)
[2017-08-22] MEDS ORDERED: Diltiazem IV* 5 MG/ML 5 ML VIAL (for loading dose/IV Push) (25 MG) ONE ×2 (20:39→20:40)
[2017-08-22] MEDS: Diltiazem DRIP* 100 MG/100 ML ADDV.BAG IVPB ONE (22:21)
[2017-08-22] MEDS: Azithromycin IV(*) 500 MG in NS 0.9% 250 ML* 250 ML IVPB SCH (22:23)
--- NOTE | 2017-08-22 23:37 | CONS ---
PULMONARY CONSULTATION REPORT: DATE OF CONSULT: 08/22/17 CONSULTATION REQUESTED BY: Irene Blandon NP REASON FOR CONSULT: Evaluation of shortness of breath. HISTORY OF PRESENT ILLNESS: The patient is a 67-year-old female with history of hypertension, GERD, recently hospitalized from 07/20/17 to 07/27/17 for left hip arthroplasty, underwent surgery, postop day 3, developed increasing nausea, vomiting, confusion, and then was found to be in atrial fibrillation with rapid ventricular rate around 140s. The patient subsequently was transferred to ICU and rate was controlled with Cardizem. The patient was transferred back, did well. Echo did not reveal any significant abnormalities. The patient also was treated for UTI at that time, and was discharged with 10-day course of antibiotics. The patient was doing well at home, until the past 2 weeks has been developing dry cough, was seen in [facility] and was diagnosed with bronchitis and was initiated on antibiotics. The patient was also started on prednisone due to some wheezing. The patient reports that she initially felt better over the past week or 2 then stopped antibiotics and prednisone 3 days ago. She was feeling well until the day before admission when she woke up with sharp pain in the mid back and worsening shortness of breath. She presented to [facility] and was sent into emergency room for further evaluation. The patient had CT of the chest which did no reveal pulmonary embolism. I have personally reviewed the images. The patient was noted to have bilateral pleural effusions and evidence of vascular congestion. She also was noted to have small amount of pericardial effusion and bibasilar atelectasis. No obvious pneumonia or airspace opacities were seen. The patient was tachycardiac in the emergency room into low 100s and was given 1 L of IV fluids for possible sepsis. She also was noted to have desaturation of O2 to 89% and was placed on O2 supplementation at 2 L per minute. The patient also received 60 mg of IV Lasix and sublingual nitro. Further evaluation in the emergency department showed tachycardia with heart rate increasing to 120s after the saline she received. The patient was seen and examined at bedside this morning. The patient reports improvement in shortness of breath. The patient still continues to have chest wall discomfort. The patient reports low grade fevers. The patient reports dry cough, however, without significant mucous production. The patient reports improvement in nausea and denies any episodes of vomiting other than 1 episode of vomiting after nitro. The patient denies abdominal pain. No urinary symptoms. The patient also reports that 2 weeks ago she was treated for bronchitis. No lower extremity edema. No known heart history in the past other than episode of AFib after recent surgery. Laboratory evaluation revealed leukocytosis with white count of 24.5 on admission, improved to 19.6 this morning. The patient also with left shift. Lactic acid levels within normal limits. Troponins were elevated mildly. Her BNP is elevated at the 196. Total protein was slightly low. Procalcitonin was within normal limits at 0.2. UA showed trace leukocyte esterase. The patient continues to have low-grade fevers. Otherwise, hemodynamically stable. Continues to be tachycardia. She is still requiring O2 supplantation. The patient is currently on antibiotics for possible community-acquired pneumonia. PAST MEDICAL HISTORY: 1. GERD. 2. Hypertension. 3. Left hip hemiarthroplasty with multiple dislocations. 4. Atrial fibrillation was diagnosed in July 2017 during past hospitalization , which is resolved. HOME MEDICATIONS: 1. Aldactone 25 mg p.o. daily. 2. Omeprazole 40 mg daily. 3. Losartan 25 mg daily. ALLERGIES: 1. METOPROLOL. 2. BENICAR. 3. RAMIPRIL. 4. FENTANYL. 5. TRAMADOL. 6. NARCOTICS. FAMILY HISTORY: Colon cancer and stroke. SOCIAL HISTORY: No alcohol, smoking, or drug abuse. Lives at home with son. REVIEW OF SYSTEMS: All 14 systems reviewed and as per HPI. PHYSICAL EXAM: Obese female in bed, in no apparent distress. Vital Signs: Temperature 100.1, pulse 100 beats per minute, respiratory rate 17 per minute, O2 sat 94% on 2 L, blood pressure 118/62. HEENT: Pupils equal, reactive to light. Mucous membranes moist. Lungs: Diminished air entry at bases, right greater than left. Cardiovascular: S1, S2 present, regular, tachycardiac. Abdomen: Obese, bowel sounds present, nontender, nondistended. Extremities: Normal range of motion. Skin: No rash bruises. DIAGNOSTIC STUDIES/LAB DATA: WBC count 19.6, hemoglobin 9.8, hematocrit 30, platelet count 374. Sodium 138, potassium 3.6, chloride 100, bicarb 31, BUN 16 , creatinine 0.7. BNP elevated at 196. Troponin initially elevated to 0.04, normal now at 0.03. CRP elevated at 271. UA mildly positive. CT of the chest as described above in HPI. IMPRESSION AND RECOMMENDATIONS: 67-year-old female with recent hip procedure, recent bronchitis, admitted with worsening shortness of breath, pleuritic chest pain, dry cough, found to have bilateral pleural effusions, evidence of pulmonary vascular congestion. 1. Fluid overload. The patient with no cardiac history. Echocardiogram done today showed evidence of mild concentric left ventricular hypertrophy. EF of 60 % to 65%. RV systolic function within normal limits. No significant pericardial effusion was noted. MR is newly described, TR previously estimated as mild to moderate. 2. Bilateral pleural effusions. 3. Low grade fevers, elevated white count - secondary to sepsis. Source unclear at this time. No evidence of pneumonia on CTA. UA mildly positive, has recent history of bronchitis and urinary tract infection in the past. 4. Low grade fevers could also be from atelectasis secondary to the pain. 5. Suspect viral process given bilateral pleural effusions and possible small pericardial effusion and elevated white count. 6. Thoracentesis not indicated at this time. 7. Continue with Lasix to achieve negative fluid balance. 8. Might recommend x-ray of the left hip to rule out any abscess there. Might need to consider MRI of left hip if sepsis worsens. Thank you for allowing me to participate in the care of your patient. Will follow up with you. [id number]/POLO #: [id number] NEELIMA
[2017-08-23] MEDS: Diltiazem TAB* 30 MG PO SCH ×4 (02:08→19:46)
[2017-08-23] MEDS: Diltiazem DRIP* 100 MG/100 ML ADDV.BAG IVPB ONE (02:20)
[2017-08-23] MEDS ORDERED: Digoxin IV* 0.5 MG/2 ML AMP (0.25 MG/ML) IV ONE (06:12)
[2017-08-23 06:54] LABS: ABS Basophils 0.1 10^3/ul (0-0.2); ABS Eosinophils 0.1 10^3/ul (0-0.6); ABS Lymphocytes 0.9 10^3/ul (1.0-4.8); ABS Monocytes 1.1 10^3/ul (0-0.8); ABS Neutrophils 13.1 10^3/ul (1.5-7.7); ABS Nucleated RBC 0 10^3/ul; Eosinophil % 0.6 % (0-6); Hematocrit 32 % (35-47); Lymphocyte % 5.6 % (25-47); Mean Corpuscular HGB Conc 32 g/dl (31-36); Mean Corpuscular Hemoglobin 28 pg (27-31); Mean Corpuscular Volume 88 fL (80-97); Mean Platelet Volume 8.2 um3 (7.4-10.4); Nucleated Red Blood Cells % 0; Platelet Count 347 10^3/ul (150-450); Red Blood Count 3.58 10^6/ul (4.0-5.4); Red Cell Distribution Width 17 % (10.5-15); White Blood Count 15.2 10^3/ul (3.5-10.8)
[2017-08-23 07:03] LABS: EGFR Non-African American 67.6 (>60)
[2017-08-23] MEDS: Omeprazole CAP* 20 MG PO SCH (07:41)
[2017-08-23] MEDS ORDERED: Vancomycin Trough Check NOTE FOLLOW UP ONE (08:30)
[2017-08-23] MEDS: Acetaminophen TAB* 325 MG PO PRN ×2 (08:34→19:45)
[2017-08-23] MEDS: Spironolactone TAB* 25 MG PO SCH (08:34)
[2017-08-23] MEDS: Rivaroxaban TAB(*) 20 MG TAB PO SCH (08:34)
[2017-08-23] MEDS: Losartan TAB* 25 MG PO SCH (08:35)
--- NOTE | 2017-08-23 12:46 | PN ---
Subjective Date of Service: 08/23/17 Interval History: Patient seen and examined. States she feels really good. Currently out of afib. Denies chest pain, no burning or palpitations. Had low grade temp earlier, currently afebrile. No further complaints. Objective Active Medications: Acetaminophen (Tylenol Tab*) 650 mg PO Q6H PRN PRN Reason: FEVER/PAIN Last Admin: 08/23/17 08:34 Dose: 650 mg Diltiazem HCl (Cardizem Tab*) 30 mg PO 0200,0800,1400,2000 [facility] Last Admin: 08/23/17 07:41 Dose: 30 mg Azithromycin 500 mg/ Sodium (Chloride) 250 mls @ 250 mls/hr IVPB Q24H [facility] Last Admin: 08/22/17 22:23 Dose: 250 mls/hr Ceftriaxone Sodium 500 mg/ (Sodium Chloride) 50 mls @ 200 mls/hr IVPB Q24H [facility] Last Admin: 08/22/17 16:38 Dose: 200 mls/hr Losartan Potassium (Cozaar Tab*) 25 mg PO DAILY [facility] Last Admin: 08/23/17 08:35 Dose: Not Given Omeprazole (Prilosec Cap*) 40 mg PO QAM@0730 [facility] Last Admin: 08/23/17 07:41 Dose: 40 mg Ondansetron HCl (Zofran Syringe*) 4 mg IV Q6H PRN PRN Reason: NAUSEA Last Admin: 08/21/17 23:23 Dose: 4 mg Rivaroxaban (Xarelto(*)) 20 mg PO DAILY [facility] Last Admin: 08/23/17 08:34 Dose: 20 mg Spironolactone (Aldactone Tab*) 25 mg PO DAILY [facility] Last Admin: 08/23/17 08:34 Dose: 25 mg Vital Signs - 8 hr 08/23/17 08/23/17 08/23/17 04:50 05:05 05:20 Temperature Pulse Rate Respiratory Rate Blood Pressure 96/66 108/70 111/61 (mmHg) O2 Sat by Pulse Oximetry 08/23/17 08/23/17 08/23/17 05:35 05:50 06:05 Temperature Pulse Rate Respiratory Rate Blood Pressure 106/58 112/77 84/67 (mmHg) O2 Sat by Pulse Oximetry 08/23/17 08/23/17 08/23/17 06:20 06:35 06:52 Temperature Pulse Rate Respiratory Rate Blood Pressure 115/59 111/59 125/64 (mmHg) O2 Sat by Pulse Oximetry 08/23/17 08/23/17 08/23/17 07:05 07:21 07:35 Temperature 101.4 F Pulse Rate 153 Respiratory 20 Rate Blood Pressure 116/57 126/77 99/61 (mmHg) O2 Sat by Pulse 93 Oximetry 08/23/17 08/23/17 08/23/17 07:36 07:50 08:05 Temperature Pulse Rate Respiratory Rate Blood Pressure 109/66 118/63 122/65 (mmHg) O2 Sat by Pulse Oximetry 08/23/17 08/23/17 08/23/17 08:08 08:20 09:46 Temperature 98.3 F Pulse Rate Respiratory 20 Rate Blood Pressure 115/70 (mmHg) O2 Sat by Pulse Oximetry Oxygen Devices in Use Now: None Appearance: Alert, NAD Ears/Nose/Mouth/Throat: NL Teeth, Lips, Gums, Mucous Membranes Moist Neck: NL Appearance and Movements; NL JVP, Trachea Midline Respiratory: Symmetrical Chest Expansion and Respiratory Effort, - - diminished bilateral bases, no rhonchi, no rales Cardiovascular: NL Sounds; No Murmurs; No JVD, RRR, No Edema Abdominal: NL Sounds; No Tenderness; No Distention Extremities: No Edema, No Clubbing, Cyanosis Skin: No Rash or Ulcers Neurological: Alert and Oriented x 3, NL Sensation, NL Gait Nutrition: Taking PO's Result Diagrams: 08/23/17 06:42 08/23/17 06:42 Additional Lab and Data: Lab Results 08/21/17 08/21/17 08/21/17 Range/Units 14:16 14:16 14:16 WBC 24.5 H (3.5-10.8) 10^3/ul RBC 4.10 (4.0-5.4) 10^6/ul Hgb 11.5 L (12.0-16.0) g/dl Hct 37 (35-47) % MCV 90 (80-97) fL MCH 28 (27-31) pg MCHC 31 (31-36) g/dl RDW 17 H (10.5-15) % Plt Count 409 (150-450) 10^3/ul MPV 8.1 (7.4-10.4) um3 Neut % (Auto) 90.3 H (38-83) % Lymph % (Auto) 3.1 L (25-47) % [place] % (Auto) 6.2 (0-7) % Eos % (Auto) 0.1 (0-6) % Baso % (Auto) 0.3 (0-2) % Absolute Neuts (auto) 22.1 H (1.5-7.7) 10^3/ul Absolute Lymphs (auto) 0.8 L (1.0-4.8) 10^3/ul Absolute Monos (auto) 1.5 H (0-0.8) 10^3/ul Absolute Eos (auto) 0 (0-0.6) 10^3/ul Absolute Basos (auto) 0.1 (0-0.2) 10^3/ul Absolute Nucleated RBC 0 10^3/ul Nucleated RBC % 0 INR (Anticoag Therapy) (0.77-1.02) APTT (26.0-36.3) seconds Sodium 141 (139-145) mmol/L Potassium 3.6 (3.5-5.0) mmol/L Chloride 103 (101-111) mmol/L Carbon Dioxide 25 (22-32) mmol/L Anion Gap 13 H (2-11) mmol/L BUN 18 (6-24) mg/dL Creatinine 0.64 (0.51-0.95) mg/dL Est GFR ( Amer) 119.0 (>60) Est GFR (Non-Af Amer) 92.6 (>60) BUN/Creatinine Ratio 28.1 H (8-20) Glucose 91 (70-100) mg/dL Calcium 9.2 (8.6-10.3) mg/dL Total Bilirubin 1.20 H (0.2-1.0) mg/dL AST 13 (13-39) U/L ALT 16 (7-52) U/L Alkaline Phosphatase 141 H (34-104) U/L Troponin I 0.04 H* (<0.04) ng/mL B-Natriuretic Peptide 196 H ( - 100) pg/mL Total Protein 6.3 L (6.4-8.9) g/dL Albumin 3.4 (3.2-5.2) g/dL Globulin 2.9 (2-4) g/dL Albumin/Globulin Ratio 1.2 (1-3) 05/15/18 Range/Units 14:17 WBC (3.5-10.8) 10^3/ul RBC (4.0-5.4) 10^6/ul Hgb (12.0-16.0) g/dl Hct (35-47) % MCV (80-97) fL MCH (27-31) pg MCHC (31-36) g/dl RDW (10.5-15) % Plt Count (150-450) 10^3/ul MPV (7.4-10.4) um3 Neut % (Auto) (38-83) % Lymph % (Auto) (25-47) % [place] % (Auto) (0-7) % Eos % (Auto) (0-6) % Baso % (Auto) (0-2) % Absolute Neuts (auto) (1.5-7.7) 10^3/ul Absolute Lymphs (auto) (1.0-4.8) 10^3/ul Absolute Monos (auto) (0-0.8) 10^3/ul Absolute Eos (auto) (0-0.6) 10^3/ul Absolute Basos (auto) (0-0.2) 10^3/ul Absolute Nucleated RBC 10^3/ul Nucleated RBC % INR (Anticoag Therapy) 1.16 H (0.77-1.02) APTT 27.8 (26.0-36.3) seconds Sodium (139-145) mmol/L Potassium (3.5-5.0) mmol/L Chloride (101-111) mmol/L Carbon Dioxide (22-32) mmol/L Anion Gap (2-11) mmol/L BUN (6-24) mg/dL Creatinine (0.51-0.95) mg/dL Est GFR ( Amer) (>60) Est GFR (Non-Af Amer) (>60) BUN/Creatinine Ratio (8-20) Glucose (70-100) mg/dL Calcium (8.6-10.3) mg/dL Total Bilirubin (0.2-1.0) mg/dL AST (13-39) U/L ALT (7-52) U/L Alkaline Phosphatase (34-104) U/L Troponin I (<0.04) ng/mL B-Natriuretic Peptide ( - 100) pg/mL Total Protein (6.4-8.9) g/dL Albumin (3.2-5.2) g/dL Globulin (2-4) g/dL Albumin/Globulin Ratio (1-3) Microbiology and Other Data: Microbiology 08/22/17 04:00 Legionella Urinary Antigen - Final Urine Negative Legionella Antigen Streptococcus pneumoniae Ag Screen - Final Negative S. pneumo Antigen Assess/Plan/Problems-Billing Assessment: This is a 67-year-old female with past medical history of hypertension, paroxysmal atrial fibrillation, gastroesophageal reflux disease, history of unstable left hemiarthroplasty and multiple dislocations of recent hospitalization from 07/20/17 to 07/27/17 who presents with report of a history of "dry cough" dx bronchitis 2 weeks ago treated with antibiotics and prednisone which were finished approximately 3 days who then developed acute onset of shortness of breath. Found to have bilateral pleural effusions and continue afib. - Patient Problems (1) Pleural effusion Code(s): J90 - PLEURAL EFFUSION, NOT ELSEWHERE CLASSIFIED SNOMED Code(s): 48476870 Comment: - Likely 2/2 fluid overload and PAF, s/p 80mg lasix IV with good diuresis - CXR with bilateral pleural effusions but much improved from admission. - Present leukocytosis but may be r/t recent outpatient prednisione and/or viral illness - Pulmonology following - continue ceftriaxone and zithro for now, as she is still having fevers and recurrent afib (2) Atrial fibrillation Code(s): I48.91 - UNSPECIFIED ATRIAL FIBRILLATION SNOMED Code(s): 11893693 Comment: - Had RVR last night and was placed on cdzm drip at 10ml/hr - Converted to RSR this morning, drip discontinued - Continue PO cardizem Q6H, then would recommend cardizem CD at discharge and outpatient Cardiology f/u - Continue xarelto which was started yesterday, tolerating well - Appears euvolemic - Continue telemetry (3) History of arthroplasty of left hip Code(s): Z96.642 - PRESENCE OF LEFT ARTIFICIAL HIP JOINT SNOMED Code(s): 436249034 Comment: - 4 months out from surgery and progressing well otherwise - Xray shows prosthesis with good placement and no abscess - Continue ambulation as tolerated (4) Hypertension Code(s): I10 - ESSENTIAL (PRIMARY) HYPERTENSION SNOMED Code(s): 95684493 Comment: - Controlled on aldactone and losartan - Tolerated cardizem for rate control with no hypotension - May need BP meds adjusted at DC if we are continueing cardizem for her afib (5) GERD (gastroesophageal reflux disease) Code(s): K21.9 - GASTRO-ESOPHAGEAL REFLUX DISEASE WITHOUT ESOPHAGITIS SNOMED Code(s): 002055337 Comment: - Continue omeprazole (6) DVT prophylaxis Code(s): LMS5351 - SNOMED Code(s): 739899559 Comment: - Xarelto started 08/22 (7) Full code status Code(s): Z78.9 - OTHER SPECIFIED HEALTH STATUS SNOMED Code(s): 913579092 Status and Disposition: Remain inpatient for IV atbx and heart rate/rhythm monitoring.
[2017-08-23] MEDS: cefTRIAXone VIAL(*) 500 MG in NS 0.9% 50 ML* 50 ML IVPB SCH (16:03)
[2017-08-23] MEDS: Azithromycin IV(*) 500 MG in NS 0.9% 250 ML* 250 ML IVPB SCH (21:55)
[2017-08-24] MEDS: Diltiazem TAB* 30 MG PO SCH ×2 (01:49→07:37)
[2017-08-24] MEDS: Acetaminophen TAB* 325 MG PO PRN (01:57)
[2017-08-24] MEDS: Omeprazole CAP* 20 MG PO SCH (07:37)
[2017-08-24] MEDS: Rivaroxaban TAB(*) 20 MG TAB PO SCH (09:11)
[2017-08-24] MEDS: Spironolactone TAB* 25 MG PO SCH (09:11)
[2017-08-24] MEDS: Losartan TAB* 25 MG PO SCH (09:11)
[2017-08-24] MEDS ORDERED: Diltiazem CD CAP* 180 MG PO SCH (13:00)
[2017-08-24] MEDS ORDERED: Ondansetron 40 MG VIAL* 2 MG/ML 20 ML VIAL IV PRN (13:30)
[2017-08-24 17:38] VITALS: BP 122/66
--- NOTE | 2017-09-01 21:31 | DS ---
AMENDED REPORT NOW INCLUDES COSIGNER DESIGNATION - ESIGNED BEFORE ADJUSTMENTS CC: Dr. Madhavi Guzman * DISCHARGE SUMMARY: DATE OF ADMISSION: 08/21/17 DATE OF DISCHARGE: 08/24/17 ATTENDING PHYSICIAN: Dr. Maria G Fatima.* (DICTATED BY VASHTI ARTHUR NP) HOSPITAL COURSE: This is a very pleasant 67-year-old female patient who had previous admission in late July from July 20 through the for her history of an unstable left hip hemiarthroplasty. She had multiple dislocations and difficult course after her surgery. She was discharged on the and then she presented with the complaint of dry cough. She was diagnosed with bronchitis as an outpatient and treated with antibiotics and prednisone, which finished approximately 3 days before she came back to the emergency department with the development of onset of shortness of breath. At that time, she was found to have bilateral pleural effusions and atrial fibrillation. The patient's past history does include paroxysmal AFib as well as osteoarthritis, hypertension, GERD all have been under control. However, she was found to be back in atrial fibrillation on the day of admission. She had not been on any kind of rate control or anticoagulation. At that point, she was started on Xarelto. She was initially placed on Cardizem drip for which she responded. Her RVR resolved and she was taken off the drip and placed on Cardizem 30 mg q.6 hours. Over that course of the 24 hours after the dripping turned off, she was responding moderately well to the 30 mg of diltiazem q.6. However, we placed her on long acting instead at a slightly higher dose, which seemed to convert her back into sinus rhythm. She continued her Xarelto. She was initially diuresed with Lasix for her fluid overload. She received 80 mg Lasix IV total and was euvolemic after that point. For her hip arthroplasty, her x- ray at admission this time showed that her prosthesis was in good placement. She did not have any subluxations or abscess noted in the joint. She was ambulating and did well with physical therapy. Her hypertension was under control. She continued Aldactone and losartan and did not have any issues with hypotension when she was started on the Cardizem. Also had been taking her omeprazole as ordered. She had no signs and symptoms of GERD and continued her Xarelto with no signs or symptoms of bleeding. Because she was so acutely short of breath, she was seen by Dr. Arambula of Pulmonology, who determines that her pleural effusions did not really show any kind of infiltrative process, it did not appear to be pneumonia or COPD. She determined that it was likely fluid overload from her paroxysmal AFib, recent surgery, and other factors. She does have some mitral regurgitation, but she had an intact ejection fraction of 60% to 65% with right ventricular systolic function within normal limits and some mild left ventricular hypertrophy. Also, of note she did have a white count and some low-grade fevers that qualified her for sepsis, but she had no clear source. Her urinalysis did not appear to be showing overt infection. However, given the nature of her symptoms likely all of this was viral; however, she was still on antibiotics. She did respond well to antibiotic therapy and with ceftriaxone and Zithromax and then at discharge was placed on Vantin to continue a course of antibiotic regimen. PHYSICAL EXAMINATION: Vital Signs: Blood pressure 122/66, heart rate 94, respiratory rate 20, O2 saturation 99% on room air with the temperature of 98.5. HEENT: The patient is atraumatic and normocephalic. PERRLA with nonicteric sclerae. Neck is supple, nontender. No JVD noted. No thyromegaly appreciated. No carotid bruits auscultated. Cardiovascular: S1, S2 present. Rate and rhythm regular. On telemetry showing regular sinus rhythm with no ectopy and no recurrent atrial fibrillation. Lungs are clear bilaterally at the apices with no wheezing, rhonchi, or rales. Mildly diminished at the bases , but exhibited good air entry. Abdomen was soft, nontender, and nondistended. Positive bowel sounds in all 4 quadrants. : Deferred. Musculoskeletal: There is no clubbing, no cyanosis, no edema. She has +2 distal pulses palpable. Brisk capillary refill and steady gait. Did not require any assistance with ambulation. Neurologic: Grossly intact with no focal deficits. Psychiatric: Cooperative and appropriate. LABORATORY DATA: Laboratories dated 08/23/17 showed WBCs 15.2 down from 24.5, RBCs 3.58, hemoglobin 10.0, hematocrit 32, platelets 347, neutrophils 86, lymphocytes 5.6, monos 7.4, eosinophils 0.6, basophils 0.4. Sodium 138, potassium 3.6, chloride 101, CO2 of 30, BUN 18, creatinine 0.84, glucose ranging between 91 and 120, calcium 8.9, magnesium 1.9. INR was 1.16. MEDICATIONS FOR DISCHARGE: Includes: 1. Spironolactone 25 mg daily. 2. Omeprazole 40 mg daily. 3. Losartan 25 mg daily. 4. Xarelto 20 mg daily. 5. Diltiazem CD 180 mg daily. 6. Vantin 200 mg q.12 hours for 5 days. FOLLOWUPS: The patient was instructed to follow up with Dr. Madhavi Guzman, her primary care provider. She was also referred to the [facility] for discharge evaluation. The patient was also advised to follow up with Cardiology, Dr. Rere Chase or another member of that group to further monitor her atrial fibrillation and medications for that diagnosis. DISCHARGE DIAGNOSES: 1. Sepsis, etiology unclear likely viral. 2. Bilateral pleural effusions. 3. Paroxysmal atrial fibrillation with rapid ventricular response. 4. Hypertension. 5. Gastroesophageal reflux disease. 6. Fever with leukocytosis. DISPOSITION: The patient was discharged in stable condition in the care of her family. All questions were answered. The patient stated her understanding of her followups and her medications at the time of discharge. VASHTI ARTHUR, JIA [id number]/[facility] #: [id number] NEELIMA
== END 2017-08-24 17:12 | disposition home or self-care (01) | DRG 187 ==
LOC: ED 12:18 → MEDTELE 18:45
PROVIDERS: ADMIT Registered Nurse; ATTEND Student in an Organized Health Care Education/Training Program
PROC: B24BZZZ Ultrasonography of Heart with Aorta (ICD-10-PCS; principal; 2017-08-21)
DX: J90 Pleural effusion, not elsewhere classified (principal); I31.3 Pericardial effusion (noninflammatory); J98.11 Atelectasis; D72.829 Elevated white blood cell count, unspecified; F41.0 Panic disorder [episodic paroxysmal anxiety]; E78.00 Pure hypercholesterolemia, unspecified; I10 Essential (primary) hypertension; K21.9 Gastro-esophageal reflux disease without esophagitis; M19.90 Unspecified osteoarthritis, unspecified site; F32.9 Major depressive disorder, single episode, unspecified; R00.0 Tachycardia, unspecified; I08.1 Rheumatic disorders of both mitral and tricuspid valves; I48.0 Paroxysmal atrial fibrillation; E87.70 Fluid overload, unspecified; Z96.642 Presence of left artificial hip joint; R09.02 Hypoxemia; R74.9 Abnormal serum enzyme level, unspecified; R11.0 Nausea; Z88.8 Allergy status to other drugs, medicaments and biological substances; Z72.89 Other problems related to lifestyle; Z88.5 Allergy status to narcotic agent; Z87.440 Personal history of urinary (tract) infections; Z80.0 Family history of malignant neoplasm of digestive organs; Z90.710 Acquired absence of both cervix and uterus; Z87.01 Personal history of pneumonia (recurrent); Z82.3 Family history of stroke; Z83.2 Family history of diseases of the blood and blood-forming organs and certain disorders involving the immune mechanism
CPT/HCPCS: 36415; 71045; 71046; 71275; 80048; 80053; 80202; 81003; 81015; 83735; 83880; 84145; 84443; 84484; 85025; 85610; 85730; 86140; 87040; 87086; 87899; 93005; 93306; 99284; A9270-GY; J0456; J0692; J0696; J1160; J1644; J1940; J2405; J3370; Q9967

== ENCOUNTER 2017-08-25 10:41 | Emergency (ER) | payer MEDICARE ==
--- NOTE | 2017-08-25 11:20 | RAD ---
HISTORY: Trauma COMPARISONS: July 23, 2017 TECHNIQUE: Multiple contiguous axial CT scans were obtained of the head without intravenous contrast. FINDINGS: HEMORRHAGE/INFARCT: There is no hemorrhage or acute infarct. MASSES/SHIFT: There is no mass or shift. EXTRA-AXIAL SPACES: There are no extra-axial fluid collections. SULCI AND VENTRICLES: The sulci and ventricles are normal in size and position for the patient's stated age. CEREBRUM: There are no focal parenchymal abnormalities. BRAINSTEM: There are no focal parenchymal abnormalities. CEREBELLUM: There are no focal parenchymal abnormalities. VESSELS: The vessels are grossly normal. PARANASAL SINUSES: The paranasal sinuses are clear. ORBITS: The orbits are unremarkable. BONES AND SOFT TISSUE: No bone or soft tissue abnormalities are noted. OTHER: None IMPRESSION: NO ACUTE INTRACRANIAL PATHOLOGY.
[2017-08-25 12:34] VITALS: BP 139/81
--- NOTE | 2017-08-25 18:09 | ED ---
Hugo Solis Tenzin, scribed for Paul Moreno MD on 08/25/17 at 1127 . Neurological HPI - HPI Summary HPI Summary: - Pt is a 67 years old female presenting to the ED after she fell and hit her head in the shower this morning at 09:15. Pt denies loss of consciousness, head pain, or neck pain. She is able to ambulate after the fall. She was discharged last night after visiting the ED with complications with her recent hip surgery. She was also recently put on Xarelto. - History of Current Complaint Chief Complaint: EDNeurologicalDeficit Stated Complaint: FALL/HEAD INJURY Time Seen by Provider: 08/25/17 10:54 Hx Obtained From: Patient Onset/Duration: Started hours ago Timing: Sudden Onset Onset Severity: Mild Current Severity: Mild Pain Intensity: 0 Pain Scale Used: 0-10 Numeric Character: Other: - denies: pounding head or neck pain. Aggravating: Nothing Alleviating: Nothing Associated Signs and Symptoms: Negative: Headache, Loss of Consciousness, Neck Pain/Stiffness - Additional Pertinent History Primary Care Physician: MARCO - Allergy/Home Medications Allergies/Adverse Reactions: Allergies Allergy/AdvReac Type Severity Reaction Status Date / Time metoprolol [From Toprol XL] Allergy Unknown Verified 08/25/17 10:49 Reaction Details olmesartan [From Benicar] Allergy Unknown Verified 08/25/17 10:49 Reaction Details ramipril [From Altace] Allergy Unknown Verified 08/25/17 10:49 Reaction Details fentanyl AdvReac Severe Hallucinati Verified 08/25/17 10:49 ons tramadol AdvReac Severe Hallucinati Verified 08/25/17 10:49 ons narcotics AdvReac Severe Nausea And Uncoded 08/25/17 10:49 Vomiting PMH/Surg Hx/FS Hx/Imm Hx Endocrine/Hematology History: Denies: Hx Bone Marrow Disease, Hx Diabetes, Hx Sickle Cell Disease, Hx Anemia Cardiovascular History: Reports: Hx Hypercholesterolemia, Hx Hypertension Respiratory History: Reports: Hx Pneumonia - few years ago, Other Respiratory Problems/Disorders - PLEURAL EFFUSIONS 08/2017 Denies: Hx Sleep Apnea GI History: Reports: Hx Gastroesophageal Reflux Disease History: Reports: Other Problems/Disorders - STRESS INC WHEN SNEEZING/ COUGHING Musculoskeletal History: Reports: Hx Arthritis, Hx Orthopedic Injury - total left hip replacment d/t fracture, Other Musculoskeletal History - shoulder surgery 20 years ago; left hip fracture Sensory History: Reports: Hx Contacts or Glasses Denies: Hx Cataracts, Hx Legally Blind, Hx Deafness, Hx Hearing Aid Opthamlomology History: Reports: Hx Contacts or Glasses Denies: Hx Cataracts, Hx Legally Blind Psychiatric History: Reports: Hx Anxiety, Hx Depression, Hx Panic Disorder Denies: Other Psychiatric Issues/Disorders - Cancer History Hx Chemotherapy: No Hx Radiation Therapy: No - Surgical History Surgery Procedure, Year, and Place: hysterectomy 15 years ago [facility]; left shoulder 20 years ago [facility] Hx Anesthesia Reactions: Yes - vomiting - Immunization History Date of Influenza Vaccine: denies Infectious Disease History: No Infectious Disease History: Denies: Hx Clostridium Difficile, Hx Hepatitis, Hx Human Immunodeficiency Virus (HIV), Hx of Known/Suspected MRSA, Hx Shingles, Hx Tuberculosis, History Other Infectious Disease, Traveled Outside the [place] in Last 30 Days - Family History Known Family History: Positive: Blood Disorder - Blood clotting in mother, Other - Cancer - Social History Alcohol Use: None Hx Substance Use: No Substance Use Type: Reports: None Hx Tobacco Use: Yes Smoking Status (MU): Never Smoked Tobacco Have You Smoked in the Last Year: No Review of Systems Positive: Nausea Musculoskeletal: Other - neck pain Negative: Headache All Other Systems Reviewed And Are Negative: Yes Physical Exam - Summary Physical Exam Summary: Appearance: The patient is well-nourished in no acute distress and in no acute pain. Skin: The skin is warm and dry and skin color reflects adequate perfusion. HEENT: The head is normocephalic and atraumatic. She has anisocoria. The right pupil is bigger than the left pupil, but both pupils are reactive. The conjunctivae are clear and without drainage. Nares are patent and without drainage. Mouth reveals moist mucous membranes and the throat is without erythema and exudate. The external ears are intact. The ear canals are patent and without drainage. The tympanic membranes are intact. Neck: the neck is supple with full range of motion and non-tender. There are no carotid bruits. There is no neck vein distension. Respiratory: Chest is non-tender. Lungs are clear to auscultation and breath sounds are symmetrical and equal. Cardiovascular: Heart is regular rate and rhythm. There is no murmur or rub auscultated. There is no peripheral edema and pulses are symmetrical and equal. Abdomen: The abdomen is soft and non-tender. There are normal bowel sounds heard in all four quadrants and there is no organomegaly palpated. Musculoskeletal: There is no back tenderness noted. Extremities are non-tender with full range of motion. There is good capillary refill. There is no peripheral edema or calf tenderness elicited. Neurological: Patient is alert and oriented to person, place and time. The patient has symmetrical motor strength in all four extremities. Cranial nerves are grossly intact. Deep tendon reflexes are symmetrical and equal in all four extremities. Psychiatric: The patient has an appropriate affect and does not exhibit any anxiety or depression. Triage Information Reviewed: Yes Vital Signs On Initial Exam: Initial Vitals Temp Pulse Resp BP Pulse Ox 97.4 F 107 14 134/72 98 08/25/17 10:50 08/25/17 10:50 08/25/17 10:50 08/25/17 10:50 08/25/17 10:50 Vital Signs Reviewed: Yes Diagnostics - Vital Signs Vital Signs Temp Pulse Resp BP Pulse Ox 08/25/17 11:00 98 22 98 08/25/17 10:55 96 40 137/88 98 08/25/17 10:54 90 26 97 08/25/17 10:50 97.4 F 107 14 134/72 98 - Laboratory Lab Statement: Any lab studies that have been ordered have been reviewed, and results considered in the medical decision making process. - CT Brain CT Interpretation: No Acute Changes - Impression: No acute intracranial pathology. Dr. Moreno reviewed the report. CT Interpretation Completed By: Radiologist Course/Dx - Course Course Of Treatment: Ms. Guerrier fell and hit her head. She had no LOC and only has pain at the site but is on Xarelto so I obtained a CT which was WNL. She has no other C/O. - Diagnoses Provider Diagnoses: Head injury Discharge - Sign-Out/Discharge Documenting (check all that apply): Discharge/Admit/Transfer - Discharge Plan Condition: Stable Disposition: HOME Patient Education Materials: Head Injury (ED) Referrals: Madhavi Guzman MD [Primary Care Provider] - 3 Days Additional Instructions: Follow up with your primary care provider in three days. Return to the emergency department for any new or worsening symptoms. - Billing Disposition and Condition Condition: STABLE Disposition: HOME The documentation as recorded by the scribeHugo Tenzin accurately reflects the service I personally performed and the decisions made by me, Paul Moreno MD.
== END 2017-08-25 12:43 | disposition home or self-care (01) ==
LOC: ED 10:41
DX: S09.90XA Unspecified injury of head, initial encounter (principal); E78.00 Pure hypercholesterolemia, unspecified; I10 Essential (primary) hypertension; W18.2XXA Fall in (into) shower or empty bathtub, initial encounter; Y93.E1 Activity, personal bathing and showering; Y92.9 Unspecified place or not applicable
CPT/HCPCS: 70450; 99282